=== PATIENT | female | born 1995 | race African-American/Black ===

== ENCOUNTER 2021-02-22 14:48 | Emergency (ER) | payer OTHER ==
[2021-02-22] MEDS ORDERED: Ondansetron PF 4 MG/2 ML Vial ONE (16:00)
[2021-02-22] MEDS ORDERED: Ketorolac Tromethamine 30 MG/ML VIAL ONE (16:01)
[2021-02-22] MEDS ORDERED: Acetaminophen 500 MG TAB ONE (16:01)
[2021-02-22 16:39] LABS: Bilirubin Neg (Negative); Blood, Urine Negative (Negative); Clarity Clear (Clear); Glucose, Urine (Dipstick) Normal (Negative); Ketone, Urine 5 mg/dL (Negative); Leukocyte 25 (Negative); Nitrite Negative (Negative); Protein, Urine (Dipstick) Negative (Neg-Trace); Urobilinogen Normal mg/dL (Less than 2); pH, Urine 6.5 (5.0-9.0)
[2021-02-22 16:43] LABS: #Monocytes 0.5 10x3/uL (0.0-1.1); #Neutrophils 9.1 10x3/uL (1.5-8.4); %Basophils 0.2 % (0.0-2.0); %Eosinophils 0.2 % (0.0-6.0); %Lymphocytes 7.8 % (18.0-47.0); %Monocytes 4.4 % (0.0-10.0); %Neutrophils 87.2 % (40.0-75.0); Hemoglobin 10.3 g/dL (12.0-15.5); Mean Corpuscular HGB CONC 31.2 g/dL (32.0-36.0); Mean Corpuscular Hemoglobin 21.9 pg (27.0-33.0); Mean Corpuscular Volume 70.1 fl (81.6-98.3); Mean Platelet Volume 9.7 fl (7.4-10.4); Platelet Count 291 10x3/uL (150-450); RBC Distribution Width 16.5 % (11.5-14.5); Red Blood Cell (RBC) Count 4.71 10x6/uL (3.90-5.03); White Blood Cell (WBC) Count 10.5 10x3/uL (3.5-10.5)
[2021-02-22 16:44] LABS: Pregnancy Test - Urine (BHCG) Negative (Negative); Pregu Control Background? CLEAR/WHITE (CLR/WHITE); Pregu Control Bar Appear? YES (CONTROL BAR)
[2021-02-22 16:45] LABS: ALT (SGPT) 13 U/L (8-55); AST (SGOT) 16 U/L (5-34); Albumin 4.2 g/dL (3.5-5.0); Alkaline Phosphatase 53 U/L (40-110); Anion Gap 12 mmol/L (10-20); BUN (Urea Nitrogen) 14 mg/dL (7.0-18.7); Bilirubin, Total 0.6 mg/dL (0.2-1.2); CK (CPK) 56 U/L (29-168); Calc. Creatinine Clearance 0 mL/min (70-130); Calcium 9.1 mg/dL (7.8-10.44); Carbon Dioxide 23 mmol/L (22-29); Chloride 106 mmol/L (98-107); Globulin 3.2 g/dL (2.4-3.5); Glucose 87 mg/dL (70-105); Potassium 3.1 mmol/L (3.5-5.1); Protein, Total 7.4 g/dL (6.0-8.3); Sodium 138 mmol/L (136-145)
[2021-02-22 16:46] LABS: Bacteria/HPF Rare-Few HPF (None Seen); RBC/HPF 0-3 HPF (0-3); Transitional Epithelial 0-3 HPF (None Seen); WBC/HPF 0-3 HPF (0-3)
[2021-02-22 17:31] LABS: Anisocytosis SLIGHT = 6-15 cells (100X) (0-5/hpf); Poikilocytosis MODERATE=16-30 cells (100X) (0-5/hpf)
[2021-02-22 17:32] LABS: Hypochromia SLIGHT = 6-15 cells (100X) (0-5/hpf); Microcytosis MODERATE=15-30 cells (100X) (0-5/hpf); Ovalocytes SLIGHT = 2-5 cells (100X) (0-1/hpf); Schistocytes MODERATE= 6-15 cells (100X) (0-1/hpf)
[2021-02-22 17:33] LABS: Elliptocytes SLIGHT = 2-5 cells (100X) (0-1/hpf); Large Platelets SLIGHT; Platelet Morphology Comment Appears Adequate; Tear Drops SLIGHT = 2-5 cells (100X) (0-1/hpf)
== END 2021-02-22 18:45 | disposition home or self-care (01) ==
LOC: CSHERS 14:48
DX: B34.9 Viral infection, unspecified (principal); E87.6 Hypokalemia; D72.810 Lymphocytopenia; D50.9 Iron deficiency anemia, unspecified; K21.9 Gastro-esophageal reflux disease without esophagitis; J45.909 Unspecified asthma, uncomplicated; Z79.899 Other long term (current) drug therapy
CPT/HCPCS: 71045; 80053; 81003; 81015; 81025; 82550; 85025; 87081; 87430; 87804; 96374; 96375; J1885; J2405

== ENCOUNTER 2021-03-23 15:12 | Inpatient (IN) | payer OTHER ==
[2021-03-23] MEDS ORDERED: Acetaminophen 500 MG TAB ONE (15:46)
[2021-03-23 16:06] LABS: #Neutrophils 9.3 10x3/uL (1.5-8.4); %Basophils 0.2 % (0.0-2.0); %Eosinophils 0.1 % (0.0-6.0); %Monocytes 8.5 % (0.0-10.0); Hemoglobin 9.2 g/dL (12.0-15.5); Mean Corpuscular HGB CONC 31.9 g/dL (32.0-36.0); Mean Corpuscular Hemoglobin 21.4 pg (27.0-33.0); Mean Corpuscular Volume 67.1 fl (81.6-98.3); Mean Platelet Volume 9.8 fl (7.4-10.4); Platelet Count 520 10x3/uL (150-450); RBC Distribution Width 16.6 % (11.5-14.5); Red Blood Cell (RBC) Count 4.29 10x6/uL (3.90-5.03); White Blood Cell (WBC) Count 12.2 10x3/uL (3.5-10.5)
[2021-03-23 16:10] LABS: BHCG - Serum Negative (NEGATIVE); Pregs Control Background? CLEAR/WHITE (CLR/WHITE); Pregs Control Bar Appear? YES (CONTROL BAR)
[2021-03-23 16:12] LABS: ALT (SGPT) 16 U/L (8-55); AST (SGOT) 14 U/L (5-34); Alkaline Phosphatase 54 U/L (40-110); Anion Gap 14 mmol/L (10-20); BUN (Urea Nitrogen) 8 mg/dL (7.0-18.7); Bilirubin, Total 0.4 mg/dL (0.2-1.2); Calc. Creatinine Clearance 0 mL/min (70-130); Calcium 9.1 mg/dL (7.8-10.44); Carbon Dioxide 23 mmol/L (22-29); Chloride 102 mmol/L (98-107); Globulin 4.1 g/dL (2.4-3.5); Glucose 91 mg/dL (70-105); Potassium 3.1 mmol/L (3.5-5.1); Protein, Total 8.1 g/dL (6.0-8.3); Sodium 136 mmol/L (136-145)
[2021-03-23] MEDS ORDERED: Ondansetron PF 4 MG/2 ML Vial ONE (16:41)
[2021-03-23] MEDS ORDERED: Potassium Chloride 20 MEQ TAB ONE (16:41)
[2021-03-23] MEDS ORDERED: Ketorolac Tromethamine 30 MG/ML VIAL ONE (16:58)
[2021-03-23 17:22] LABS: Anisocytosis SLIGHT = 6-15 cells (100X) (0-5/hpf); Hypochromia SLIGHT = 6-15 cells (100X) (0-5/hpf); Microcytosis MODERATE=15-30 cells (100X) (0-5/hpf); Ovalocytes SLIGHT = 2-5 cells (100X) (0-1/hpf); Poikilocytosis SLIGHT = 6-15 cells (100X) (0-5/hpf); Polychromasia SLIGHT = 2-3 cells (100X) (0-2/hpf); Reflex for Review?? YES; Schistocytes SLIGHT = 2-5 cells (100X) (0-1/hpf); Tear Drops SLIGHT = 2-5 cells (100X) (0-1/hpf)
[2021-03-23 17:23] LABS: Giant Platelets SLIGHT; Platelet Morphology Comment Appears Increased
[2021-03-23] MEDS ORDERED: Aspirin Chewable 81 MG TAB ONE (18:11)
[2021-03-23] MEDS ORDERED: Cefepime 2 GM VIAL ONE (18:12)
[2021-03-23] MEDS ORDERED: Ondansetron PF 4 MG/2 ML Vial IVP PRN (19:14)
[2021-03-23] MEDS ORDERED: Ondansetron ODT 4 MG TAB PO PRN (19:14)
[2021-03-23 19:23] LABS: Bilirubin Neg (Negative); Blood, Urine Negative (Negative); Clarity Clear (Clear); Glucose, Urine (Dipstick) Normal (Negative); Ketone, Urine Negative (Negative); Leukocyte 100 (Negative); Nitrite Negative (Negative); Protein, Urine (Dipstick) Negative (Neg-Trace); Specific Gravity, Urine 1.005 (1.002-1.036); Urobilinogen Normal mg/dL (Less than 2)
[2021-03-23 19:25] LABS: Troponin I Less than 0.010 ng/mL (< 0.028)
[2021-03-23 19:34] LABS: RBC/HPF 0-3 HPF (0-3)
[2021-03-23 19:35] LABS: Bacteria/HPF Rare-Few HPF (None Seen); Renal Epithelial 0-3 HPF (None Seen); Transitional Epithelial 0-3 HPF (None Seen)
[2021-03-23 20:13] LABS: Lactic Acid 0.6 mmol/L (0.5-2.2)
[2021-03-23 22:34] LABS: Troponin I Less than 0.010 ng/mL (< 0.028)
[2021-03-23 22:35] VITALS: BMI 26.3
[2021-03-24] MEDS: Cefepime 2 GM in Sodium Chloride 0.9% 100 ML IVPB SCH ×3 (01:19→16:32)
[2021-03-24 04:26] LABS: #Neutrophils 8.5 10x3/uL (1.5-8.4); %Basophils 0.2 % (0.0-2.0); %Eosinophils 0.3 % (0.0-6.0); %Lymphocytes 11.2 % (18.0-47.0); %Monocytes 9.2 % (0.0-10.0); %Neutrophils 78.4 % (40.0-75.0); Hemoglobin 7.9 g/dL (12.0-15.5); Mean Corpuscular HGB CONC 31.9 g/dL (32.0-36.0); Mean Corpuscular Hemoglobin 21.4 pg (27.0-33.0); Mean Corpuscular Volume 67.2 fl (81.6-98.3); Mean Platelet Volume 10.3 fl (7.4-10.4); Platelet Count 443 10x3/uL (150-450); RBC Distribution Width 17.2 % (11.5-14.5); Red Blood Cell (RBC) Count 3.69 10x6/uL (3.90-5.03); White Blood Cell (WBC) Count 10.8 10x3/uL (3.5-10.5)
[2021-03-24 04:35] LABS: Anion Gap 14 mmol/L (10-20); BUN (Urea Nitrogen) 7 mg/dL (7.0-18.7); Calc. Creatinine Clearance 107 mL/min (70-130); Calcium 8.3 mg/dL (7.8-10.44); Carbon Dioxide 18 mmol/L (22-29); Chloride 110 mmol/L (98-107); Glucose 91 mg/dL (70-105); Magnesium 1.7 mg/dL (1.6-2.6); Potassium 3.8 mmol/L (3.5-5.1); Sodium 138 mmol/L (136-145)
[2021-03-24] MEDS: Acetaminophen 325 MG TAB PO PRN (04:58)
[2021-03-24] MEDS: Vancomycin HCl 1 GM in Sodium Chloride 0.9% 250 ML 250 ML IVPB SCH ×2 (05:49→17:53)
[2021-03-24] MEDS: Enoxaparin Sodium 40 MG/0.4 ML SYRINGE SC SCH (08:20)
[2021-03-24] MEDS ORDERED: Ferrous Sulfate 325 MG TAB PO SCH (09:45)
[2021-03-24 14:18] LABS: SARS-CoV-2 PCR by NAA Not Detected (NotDetected)
[2021-03-24] MEDS: Ferrous Sulfate 325 MG TAB PO SCH ×2 (14:57→21:35)
[2021-03-24] MEDS: HYDROcodone/Acetaminophen 5/325 mg Tablet PO PRN ×2 (15:03→19:35)
[2021-03-24] MEDS: Sodium Chloride 0.9% 1,000 ML IV SCH (16:32)
[2021-03-24] MEDS: Morphine 4 MG/ML VIAL SLOW IVP PRN ×2 (16:32→21:35)
[2021-03-25] MEDS: Cefepime 2 GM in Sodium Chloride 0.9% 100 ML IVPB SCH ×3 (02:18→18:16)
[2021-03-25] MEDS: Morphine 4 MG/ML VIAL SLOW IVP PRN ×3 (02:41→15:50)
[2021-03-25] MEDS: Sodium Chloride 0.9% 1,000 ML IV SCH ×2 (04:30→12:21)
[2021-03-25 05:57] LABS: Hemoglobin 7.7 g/dL (12.0-15.5); Mean Corpuscular Hemoglobin 21.6 pg (27.0-33.0); Mean Corpuscular Volume 67.7 fl (81.6-98.3); Mean Platelet Volume 9.9 fl (7.4-10.4); Platelet Count 385 10x3/uL (150-450); RBC Distribution Width 17.1 % (11.5-14.5); Red Blood Cell (RBC) Count 3.56 10x6/uL (3.90-5.03); White Blood Cell (WBC) Count 6.8 10x3/uL (3.5-10.5)
[2021-03-25 06:05] LABS: Iron 9 ug/dL (50-170); Iron Binding Capacity, Total 236 mcg/dL (265-497)
[2021-03-25] MEDS: Vancomycin HCl 1 GM in Sodium Chloride 0.9% 250 ML 250 ML IVPB SCH (06:06)
[2021-03-25 06:11] LABS: Vancomycin, Trough 9.1 ug/mL
[2021-03-25 06:13] LABS: Anion Gap 12 mmol/L (10-20); BUN (Urea Nitrogen) Less than 4 mg/dL (7.0-18.7); Calc. Creatinine Clearance 105 mL/min (70-130); Calcium 8.7 mg/dL (7.8-10.44); Carbon Dioxide 21 mmol/L (22-29); Chloride 111 mmol/L (98-107); Glucose 97 mg/dL (70-105); Iron 8 ug/dL (50-170); Iron Binding Capacity, Total 245 mcg/dL (265-497); Magnesium 1.8 mg/dL (1.6-2.6); Potassium 3.4 mmol/L (3.5-5.1); Sodium 141 mmol/L (136-145)
[2021-03-25 06:14] LABS: #Eosinphils 0.1 10x3/uL (0.0-0.5); #Monocytes 0.6 10x3/uL (0.0-1.1); #Neutrophils 4.2 10x3/uL (1.5-8.4); %Basophils 0.3 % (0.0-2.0); %Eosinophils 1.2 % (0.0-6.0); %Lymphocytes 27.5 % (18.0-47.0); %Monocytes 8.5 % (0.0-10.0); %Neutrophils 62.2 % (40.0-75.0)
[2021-03-25 06:18] LABS: Platelet Morphology Comment Appears Adequate
[2021-03-25 06:19] LABS: Anisocytosis SLIGHT = 6-15 cells (100X) (0-5/hpf); Elliptocytes SLIGHT = 2-5 cells (100X) (0-1/hpf); Hypochromia MODERATE=16-30 cells (100X) (0-5/hpf); Microcytosis MODERATE=15-30 cells (100X) (0-5/hpf)
[2021-03-25 06:27] LABS: Ferritin 178.57 ng/mL (10-291)
[2021-03-25] MEDS ORDERED: Vancomycin HCl 500 MG in Sodium Chloride 0.9% 100 ML IVPB SCH (08:00)
[2021-03-25] MEDS: Enoxaparin Sodium 40 MG/0.4 ML SYRINGE SC SCH (08:58)
[2021-03-25] MEDS: Ferrous Sulfate 325 MG TAB PO SCH ×4 (08:58→20:15)
[2021-03-25] MEDS: HYDROcodone/Acetaminophen 5/325 mg Tablet PO PRN ×2 (12:09→23:22)
[2021-03-25] MEDS ORDERED: VANCOMYCIN 1.5 GM in Sodium Chloride 0.9% 250 ML 300 ML IVPB SCH (18:00)
[2021-03-26] MEDS ORDERED: HYDROcodone/Acetaminophen 10/325 mg Tablet PO SCH (00:30)
[2021-03-26] MEDS: Cefepime 2 GM in Sodium Chloride 0.9% 100 ML IVPB SCH ×2 (01:50→11:19)
[2021-03-26 05:19] LABS: ALT (SGPT) 16 U/L (8-55); AST (SGOT) 18 U/L (5-34); Albumin 3.2 g/dL (3.5-5.0); Alkaline Phosphatase 46 U/L (40-110); Anion Gap 13 mmol/L (10-20); BUN (Urea Nitrogen) 4 mg/dL (7.0-18.7); Bilirubin, Total 0.1 mg/dL (0.2-1.2); Calc. Creatinine Clearance 113 mL/min (70-130); Calcium 8.7 mg/dL (7.8-10.44); Carbon Dioxide 24 mmol/L (22-29); Chloride 108 mmol/L (98-107); Globulin 3.5 g/dL (2.4-3.5); Glucose 92 mg/dL (70-105); Protein, Total 6.7 g/dL (6.0-8.3); Sodium 141 mmol/L (136-145)
[2021-03-26 05:32] LABS: #Eosinphils 0.1 10x3/uL (0.0-0.5); #Monocytes 0.4 10x3/uL (0.0-1.1); #Neutrophils 2.8 10x3/uL (1.5-8.4); %Basophils 0.2 % (0.0-2.0); %Eosinophils 1.7 % (0.0-6.0); %Lymphocytes 37.4 % (18.0-47.0); %Monocytes 7.6 % (0.0-10.0); %Neutrophils 52.9 % (40.0-75.0); Hemoglobin 7.5 g/dL (12.0-15.5); Mean Corpuscular HGB CONC 31.1 g/dL (32.0-36.0); Mean Corpuscular Hemoglobin 21.5 pg (27.0-33.0); Mean Corpuscular Volume 69.1 fl (81.6-98.3); Mean Platelet Volume 9.2 fl (7.4-10.4); Platelet Count 374 10x3/uL (150-450); Red Blood Cell (RBC) Count 3.49 10x6/uL (3.90-5.03); White Blood Cell (WBC) Count 5.2 10x3/uL (3.5-10.5)
[2021-03-26 05:34] LABS: Platelet Morphology Comment Appears Adequate
[2021-03-26 05:35] LABS: Anisocytosis MODERATE=16-30 cells (100X) (0-5/hpf); Elliptocytes SLIGHT = 2-5 cells (100X) (0-1/hpf); Hypochromia MODERATE=16-30 cells (100X) (0-5/hpf); Macrocytosis MODERATE=16-30 cells (100X) (0-5/hpf); Microcytosis SLIGHT = 6-15 cells (100X) (0-5/hpf); Polychromasia SLIGHT = 2-3 cells (100X) (0-2/hpf)
[2021-03-26] MEDS: Ferrous Sulfate 325 MG TAB PO SCH ×2 (08:52→14:28)
[2021-03-26] MEDS: Enoxaparin Sodium 40 MG/0.4 ML SYRINGE SC SCH (08:57)
[2021-03-26] MEDS: HYDROcodone/Acetaminophen 5/325 mg Tablet PO PRN (08:57)
[2021-03-26] MEDS ORDERED: Folic Acid 1 MG TAB PO SCH (09:00)
[2021-03-26] MEDS ORDERED: SUMAtriptan Succinate 25 MG TAB PO SCH (12:45)
[2021-03-26 14:26] VITALS: BP 100/65; TEMP 98
[2021-03-26] MEDS: Acetaminophen 325 MG TAB PO PRN (14:28)
[2021-03-26] MEDS ORDERED: Cefepime 2 GM in Sodium Chloride 0.9% 100 ML IVPB SCH (15:00)
[2021-03-26 17:11] LABS: Hemoglobin 9.3 g/dL (12.0-15.5); Vancomycin, Trough 1.5 ug/mL
[2021-03-27] MEDS ORDERED: Prenatal Vitamin 1 TAB PO SCH (09:00)
== END 2021-03-26 18:30 | disposition home or self-care (01) | DRG 872 ==
LOC: CSHERS 15:12 → CSHTELE 20:06
PROVIDERS: ADMIT Internal Medicine; ATTEND Internal Medicine
PROC: 30233N1 Transfusion of Nonautologous Red Blood Cells into Peripheral Vein, Percutaneous Approach (ICD-10-PCS; principal; 2021-03-26)
DX: A41.51 Sepsis due to Escherichia coli [E. coli] (principal); E87.2 Acidosis; N39.0 Urinary tract infection, site not specified; R65.20 Severe sepsis without septic shock; Z20.822 Contact with and (suspected) exposure to COVID-19; Z86.16 Personal history of COVID-19; E87.6 Hypokalemia; D56.1 Beta thalassemia; K21.9 Gastro-esophageal reflux disease without esophagitis; J45.909 Unspecified asthma, uncomplicated; Z90.710 Acquired absence of both cervix and uterus; R51.9 Headache, unspecified
CPT/HCPCS: 36415; 36430; 71045; 71275; 80048; 80053; 80202; 81003; 81015; 82607; 82728; 82746; 83010; 83540; 83550; 83605; 83615; 83735; 84145; 84484; 84703; 85025; 85046; 85060; 85652; 86140; 86850; 86900; 86901; 87040; 87076; 87077; 87086; 87149; 87186; 87635; 93005; 93306; 96365; 96367; 96375; J0692; J1650; J1885; J2270; J2405; J3370; J3490; J7050; P9016; U0003; U0005

== ENCOUNTER 2021-07-16 01:06 | Emergency (ER) | payer OTHER ==
[2021-07-16 01:55] LABS: Bilirubin Neg (Negative); Blood, Urine Negative (Negative); Clarity Slightly Cloudy (Clear); Glucose, Urine (Dipstick) Normal (Negative); Ketone, Urine Negative (Negative); Leukocyte 25 (Negative); Nitrite Negative (Negative); Protein, Urine (Dipstick) Negative (Neg-Trace); Specific Gravity, Urine 1.015 (1.002-1.036); Urobilinogen Normal mg/dL (Less than 2)
[2021-07-16 02:04] LABS: RBC/HPF 0-3 HPF (0-3)
[2021-07-16 02:05] LABS: Bacteria/HPF 2+ HPF (None Seen)
== END 2021-07-16 02:50 | disposition home or self-care (01) ==
LOC: CSHERS 01:06
DX: R10.32 Left lower quadrant pain (principal); K21.9 Gastro-esophageal reflux disease without esophagitis; J45.909 Unspecified asthma, uncomplicated; D50.9 Iron deficiency anemia, unspecified
CPT/HCPCS: 81003; 81015; 84702; 99284

== ENCOUNTER 2022-01-23 20:56 | Emergency (ER) | payer OTHER ==
[2022-01-23] MEDS ORDERED: Ibuprofen 200 MG TAB ONE (22:18)
[2022-01-23 22:32] LABS: Bilirubin Neg (Negative); Blood, Urine 150 (Negative); Clarity Bloody (Clear); Glucose, Urine (Dipstick) Normal (Negative); Ketone, Urine Negative (Negative); Leukocyte 500 (Negative); Nitrite Negative (Negative); Protein, Urine (Dipstick) 500 mg/dl (Neg-Trace); Specific Gravity, Urine 1.025 (1.002-1.036); Urobilinogen Normal mg/dL (Less than 2)
[2022-01-23 22:36] LABS: #Eosinphils 0.6 10x3/uL (0.0-0.5); #Monocytes 0.4 10x3/uL (0.0-1.1); %Basophils 0.3 % (0.0-2.0); %Eosinophils 8.3 % (0.0-6.0); %Lymphocytes 38.7 % (18.0-47.0); %Monocytes 6.7 % (0.0-10.0); %Neutrophils 45.7 % (40.0-75.0); Hemoglobin 9.4 g/dL (12.0-15.5); Mean Corpuscular HGB CONC 31.2 g/dL (32.0-36.0); Mean Corpuscular Hemoglobin 20.9 pg (27.0-33.0); Mean Corpuscular Volume 66.9 fl (81.6-98.3); Platelet Count 476 10x3/uL (150-450); RBC Distribution Width 18.4 % (11.5-14.5); White Blood Cell (WBC) Count 6.6 10x3/uL (3.5-10.5)
[2022-01-23 22:37] LABS: Pregnancy Test - Urine (BHCG) Negative (Negative); Pregu Control Background? CLEAR/WHITE (CLR/WHITE); Pregu Control Bar Appear? YES (CONTROL BAR); Specific Gravity 1.025 (1.002-1.036)
[2022-01-23 22:43] LABS: RBC/HPF Greater than 50 HPF (0-3); WBC/HPF Greater Than 50 HPF (0-3)
[2022-01-23 22:44] LABS: Bacteria/HPF 2+ HPF (None Seen)
[2022-01-24 00:03] LABS: Platelet Morphology Comment Appears Increased
[2022-01-24 00:04] LABS: Anisocytosis SLIGHT = 6-15 cells (100X) (0-5/hpf); Elliptocytes SLIGHT = 2-5 cells (100X) (0-1/hpf); Hypochromia SLIGHT = 6-15 cells (100X) (0-5/hpf); Macrocytosis SLIGHT = 6-15 cells (100X) (0-5/hpf); Microcytosis SLIGHT = 6-15 cells (100X) (0-5/hpf); Poikilocytosis SLIGHT = 6-15 cells (100X) (0-5/hpf); Schistocytes SLIGHT = 2-5 cells (100X) (0-1/hpf); Target Cells SLIGHT = 2-5 cells (100X) (0-1/hpf)
== END 2022-01-23 23:51 | disposition home or self-care (01) ==
LOC: CSHERS 20:56
DX: S60.221A Contusion of right hand, initial encounter (principal); N30.00 Acute cystitis without hematuria; W19.XXXA Unspecified fall, initial encounter
CPT/HCPCS: 81003; 81015; 81025; 85025; 87077; 87086

== ENCOUNTER 2022-02-25 04:49 | Inpatient (IN) | payer OTHER ==
[2022-02-25] MEDS ORDERED: Ketorolac Tromethamine 30 MG/ML VIAL ONE (05:09)
[2022-02-25] MEDS ORDERED: Ondansetron PF 4 MG/2 ML Vial ONE ×2 (05:09→07:46)
[2022-02-25 05:23] LABS: BHCG - Serum Negative (NEGATIVE); Pregs Control Background? CLEAR/WHITE (CLR/WHITE); Pregs Control Bar Appear? YES (CONTROL BAR)
[2022-02-25 05:29] LABS: #Monocytes 0.8 10x3/uL (0.0-1.1); #Neutrophils 6.9 10x3/uL (1.5-8.4); %Basophils 0.1 % (0.0-2.0); %Eosinophils 0.1 % (0.0-6.0); %Lymphocytes 29.4 % (18.0-47.0); %Monocytes 6.8 % (0.0-10.0); %Neutrophils 62.2 % (40.0-75.0); Hemoglobin 8.4 g/dL (12.0-15.5); Mean Corpuscular HGB CONC 31.8 g/dL (32.0-36.0); Mean Corpuscular Hemoglobin 21.1 pg (27.0-33.0); Mean Corpuscular Volume 66.2 fl (81.6-98.3); Mean Platelet Volume 9.1 fl (7.4-10.4); Platelet Count 569 10x3/uL (150-450); RBC Distribution Width 20.6 % (11.5-14.5); Red Blood Cell (RBC) Count 3.99 10x6/uL (3.90-5.03); White Blood Cell (WBC) Count 11.2 10x3/uL (3.5-10.5)
[2022-02-25 05:31] LABS: ALT (SGPT) 63 U/L (8-55); AST (SGOT) 41 U/L (5-34); Albumin 3.6 g/dL (3.5-5.0); Alkaline Phosphatase 45 U/L (40-110); Anion Gap 15 mmol/L (10-20); BUN (Urea Nitrogen) 15 mg/dL (7.0-18.7); Bilirubin, Total 0.2 mg/dL (0.2-1.2); Calc. Creatinine Clearance 0 mL/min (70-130); Calcium 8.9 mg/dL (7.8-10.44); Carbon Dioxide 24 mmol/L (22-29); Chloride 102 mmol/L (98-107); Globulin 3.1 g/dL (2.4-3.5); Glucose 85 mg/dL (70-105); Lipase 288 U/L (8-78); Potassium 3.3 mmol/L (3.5-5.1); Protein, Total 6.7 g/dL (6.0-8.3); Sodium 138 mmol/L (136-145)
[2022-02-25] MEDS ORDERED: Morphine 4 MG/ML VIAL ONE ×2 (05:33→07:45)
[2022-02-25] MEDS ORDERED: Promethazine HCl 25 MG/ML VIAL ONE (09:37)
[2022-02-25] MEDS ORDERED: Acetaminophen 325 MG TAB PO PRN (11:45)
[2022-02-25] MEDS ORDERED: 1/2 NS w/KCL 20 mEq 1,000 ML IV SCH (12:00)
[2022-02-25] MEDS ORDERED: Electrolyte Replacement Protocol FS PRN (12:00)
[2022-02-25 12:37] VITALS: BMI 16.2
[2022-02-25] MEDS: Promethazine HCl 25 MG in Sodium Chloride 0.9% 50 ML IVPB PRN ×2 (12:50→20:53)
[2022-02-25] MEDS ORDERED: predniSONE 20 MG TAB PO SCH (13:00)
[2022-02-25] MEDS: Morphine 4 MG/ML VIAL SLOW IVP PRN ×2 (13:15→20:43)
[2022-02-25] MEDS: Famotidine/PF 20 mg/2ml Vial SLOW IVP SCH (20:43)
[2022-02-25] MEDS ORDERED: Pantoprazole 40 MG VIAL IVP SCH (21:00)
[2022-02-25] MEDS: HYDROcodone/Acetaminophen 5/325 mg Tablet PO PRN (22:40)
[2022-02-26] MEDS: Sodium Chloride 0.9% 1,000 ML IV SCH ×2 (02:32→05:47)
[2022-02-26 05:01] LABS: #Monocytes 0.2 10x3/uL (0.0-1.1); %Basophils 0.1 % (0.0-2.0); %Lymphocytes 25.1 % (18.0-47.0); %Monocytes 2.4 % (0.0-10.0); %Neutrophils 71.7 % (40.0-75.0); Hemoglobin 7.3 g/dL (12.0-15.5); Mean Corpuscular Hemoglobin 21.7 pg (27.0-33.0); Mean Corpuscular Volume 67.7 fl (81.6-98.3); Mean Platelet Volume 8.3 fl (7.4-10.4); Platelet Count 403 10x3/uL (150-450); Red Blood Cell (RBC) Count 3.37 10x6/uL (3.90-5.03); White Blood Cell (WBC) Count 8.4 10x3/uL (3.5-10.5)
[2022-02-26 05:20] LABS: ALT (SGPT) 42 U/L (8-55); AST (SGOT) 24 U/L (5-34); Alkaline Phosphatase 38 U/L (40-110); Anion Gap 12 mmol/L (10-20); BUN (Urea Nitrogen) 8 mg/dL (7.0-18.7); Bilirubin, Total 0.3 mg/dL (0.2-1.2); Calc. Creatinine Clearance 75 mL/min (70-130); Calcium 8.6 mg/dL (7.8-10.44); Carbon Dioxide 25 mmol/L (22-29); Chloride 106 mmol/L (98-107); Globulin 2.7 g/dL (2.4-3.5); Glucose 93 mg/dL (70-105); Lipase 56 U/L (8-78); Magnesium 1.9 mg/dL (1.6-2.6); Phosphorus 4.8 mg/dL (2.3-4.7); Potassium 4.3 mmol/L (3.5-5.1); Protein, Total 5.7 g/dL (6.0-8.3); Sodium 139 mmol/L (136-145)
[2022-02-26] MEDS: HYDROcodone/Acetaminophen 5/325 mg Tablet PO PRN ×3 (05:40→23:48)
[2022-02-26] MEDS: Promethazine HCl 25 MG in Sodium Chloride 0.9% 50 ML IVPB PRN ×4 (05:44→23:46)
[2022-02-26] MEDS ORDERED: Magnesium 2 GM/50 ML(in water) 2 GM in Premix Bag 1 BAG IVPB SCH (05:45)
[2022-02-26 06:39] LABS: Anisocytosis SLIGHT = 6-15 cells (100X) (0-5/hpf); Microcytosis MODERATE=15-30 cells (100X) (0-5/hpf); Ovalocytes SLIGHT = 2-5 cells (100X) (0-1/hpf); Platelet Morphology Comment Appears Adequate; Schistocytes SLIGHT = 2-5 cells (100X) (0-1/hpf)
[2022-02-26] MEDS: MESALAMINE 1.2 GM PO SCH (08:19)
[2022-02-26] MEDS: predniSONE 20 MG TAB PO SCH (08:19)
[2022-02-26] MEDS: Famotidine/PF 20 mg/2ml Vial SLOW IVP SCH ×2 (08:19→19:42)
[2022-02-26] MEDS: Morphine 4 MG/ML VIAL SLOW IVP PRN ×3 (08:29→21:52)
[2022-02-26 21:23] LABS: SARS-CoV-2 PCR by NAA Not Detected (NotDetected)
[2022-02-27] MEDS: Sodium Chloride 0.9% 1,000 ML IV SCH ×3 (00:31→18:57)
[2022-02-27] MEDS: Morphine 4 MG/ML VIAL SLOW IVP PRN (03:54)
[2022-02-27 04:59] LABS: Hemoglobin 8.8 g/dL (12.0-15.5); Mean Corpuscular HGB CONC 31.8 g/dL (32.0-36.0); Mean Corpuscular Hemoglobin 21.6 pg (27.0-33.0); Mean Corpuscular Volume 67.9 fl (81.6-98.3); Mean Platelet Volume 9.8 fl (7.4-10.4); Platelet Count 570 10x3/uL (150-450); RBC Distribution Width 20.9 % (11.5-14.5); Red Blood Cell (RBC) Count 4.08 10x6/uL (3.90-5.03); White Blood Cell (WBC) Count 8.8 10x3/uL (3.5-10.5)
[2022-02-27 05:19] LABS: Anion Gap 14 mmol/L (10-20); BUN (Urea Nitrogen) 10 mg/dL (7.0-18.7); Calc. Creatinine Clearance 68 mL/min (70-130); Calcium 8.4 mg/dL (7.8-10.44); Carbon Dioxide 26 mmol/L (22-29); Chloride 107 mmol/L (98-107); Glucose 93 mg/dL (70-105); Potassium 3.4 mmol/L (3.5-5.1); Sodium 144 mmol/L (136-145)
[2022-02-27] MEDS ORDERED: Potassium Chloride 20 MEQ TAB PO SCH (05:45)
[2022-02-27] MEDS: Promethazine HCl 25 MG in Sodium Chloride 0.9% 50 ML IVPB PRN (06:28)
[2022-02-27] MEDS: HYDROcodone/Acetaminophen 5/325 mg Tablet PO PRN ×3 (06:29→22:05)
[2022-02-27] MEDS: predniSONE 20 MG TAB PO SCH (09:04)
[2022-02-27] MEDS: Ferrous Sulfate 325 MG TAB PO SCH (09:05)
[2022-02-27] MEDS: Famotidine/PF 20 mg/2ml Vial SLOW IVP SCH ×2 (09:05→22:04)
[2022-02-27] MEDS: MESALAMINE 1.2 GM PO SCH (09:11)
[2022-02-27] MEDS: Promethazine 25 MG TAB PO PRN ×2 (13:22→18:57)
[2022-02-27] MEDS ORDERED: Ondansetron PF 4 MG/2 ML Vial IVP SCH (17:00)
[2022-02-28] MEDS ORDERED: HYDROcodone/Acetaminophen 5/325 mg Tablet PO SCH (01:45)
[2022-02-28] MEDS: HYDROcodone/Acetaminophen 5/325 mg Tablet PO PRN ×5 (01:52→20:39)
[2022-02-28] MEDS ORDERED: Simethicone Chewable 80 MG TAB PO SCH (04:45)
[2022-02-28] MEDS: Sodium Chloride 0.9% 1,000 ML IV SCH ×3 (04:57→20:38)
[2022-02-28] MEDS ORDERED: Metoclopramide HCl 10 MG/2 ML VIAL IVP SCH (05:00)
[2022-02-28 05:26] LABS: Anion Gap 14 mmol/L (10-20); BUN (Urea Nitrogen) 10 mg/dL (7.0-18.7); Calc. Creatinine Clearance 68 mL/min (70-130); Calcium 8.2 mg/dL (7.8-10.44); Carbon Dioxide 23 mmol/L (22-29); Chloride 107 mmol/L (98-107); Glucose 95 mg/dL (70-105); Sodium 141 mmol/L (136-145)
[2022-02-28] MEDS ORDERED: Potassium Chloride 20 MEQ TAB PO SCH (05:45)
[2022-02-28] MEDS: Famotidine/PF 20 mg/2ml Vial SLOW IVP SCH ×2 (09:03→20:40)
[2022-02-28] MEDS: Ferrous Sulfate 325 MG TAB PO SCH (09:03)
[2022-02-28] MEDS: predniSONE 20 MG TAB PO SCH (09:04)
[2022-02-28] MEDS: MESALAMINE 1.2 GM PO SCH (09:05)
[2022-02-28] MEDS: Promethazine 25 MG TAB PO PRN (13:10)
[2022-03-01 00:17] VITALS: BP 112/72; TEMP 98.7
[2022-03-05] MEDS ORDERED: predniSONE 20 MG TAB PO SCH (09:00)
[2022-03-12] MEDS ORDERED: predniSONE 10 MG TAB PO SCH (09:00)
== END 2022-02-28 22:21 | disposition left against medical advice (07) | DRG 387 ==
LOC: CSHERS 04:49 → CSHERHOLD 10:29 → INTOOBSV 10:29 → CSHTELE 11:47 → OBSVTOIN 02-26 17:20
PROVIDERS: ADMIT Family Medicine; ATTEND Internal Medicine
DX: K51.90 Ulcerative colitis, unspecified, without complications (principal); E87.6 Hypokalemia; R74.8 Abnormal levels of other serum enzymes; Z20.822 Contact with and (suspected) exposure to COVID-19; D50.9 Iron deficiency anemia, unspecified; Z88.2 Allergy status to sulfonamides; Z88.8 Allergy status to other drugs, medicaments and biological substances; Z79.899 Other long term (current) drug therapy
CPT/HCPCS: 36415; 74018; 74177; 80048; 80053; 82150; 83690; 83735; 84100; 84703; 85025; 85027; 94760; 96374; 96375; 96376; G0378; J1885; J2270; J2405; J2550; J2765; J3475; J3480; J7050; J7512; Q0169; S0028; U0003; U0005

== ENCOUNTER 2022-03-22 02:10 | Inpatient (IN) | payer OTHER ==
[2022-03-22] MEDS ORDERED: Glycopyrrolate 0.4 MG/ 2 ML VIAL SLOW IVP SCH (03:15)
[2022-03-22] MEDS ORDERED: Morphine 4 MG/ML VIAL ONE ×3 (03:15→08:46)
[2022-03-22] MEDS ORDERED: Ondansetron PF 4 MG/2 ML Vial ONE (03:15)
[2022-03-22 03:49] LABS: #Monocytes 0.6 10x3/uL (0.0-1.1); #Neutrophils 9.2 10x3/uL (1.5-8.4); %Basophils 0.1 % (0.0-2.0); %Lymphocytes 22.9 % (18.0-47.0); %Monocytes 4.3 % (0.0-10.0); %Neutrophils 70.3 % (40.0-75.0); Hemoglobin 8.9 g/dL (12.0-15.5); Mean Corpuscular Hemoglobin 21.6 pg (27.0-33.0); Mean Corpuscular Volume 69.7 fl (81.6-98.3); Mean Platelet Volume 9.9 fl (7.4-10.4); Platelet Count 483 10x3/uL (150-450); RBC Distribution Width 19.8 % (11.5-14.5); Red Blood Cell (RBC) Count 4.12 10x6/uL (3.90-5.03); White Blood Cell (WBC) Count 13.1 10x3/uL (3.5-10.5)
[2022-03-22 03:56] LABS: BHCG - Serum Negative (NEGATIVE); Pregs Control Background? CLEAR/WHITE (CLR/WHITE); Pregs Control Bar Appear? YES (CONTROL BAR)
[2022-03-22 04:03] LABS: ALT (SGPT) 27 U/L (8-55); AST (SGOT) 20 U/L (5-34); Alkaline Phosphatase 36 U/L (40-110); Anion Gap 14 mmol/L (10-20); BUN (Urea Nitrogen) 17 mg/dL (7.0-18.7); Bilirubin, Total 0.1 mg/dL (0.2-1.2); Calc. Creatinine Clearance 0 mL/min (70-130); Calcium 8.8 mg/dL (7.8-10.44); Carbon Dioxide 22 mmol/L (22-29); Chloride 107 mmol/L (98-107); Glucose 94 mg/dL (70-105); Lipase 104 U/L (8-78); Sodium 139 mmol/L (136-145)
[2022-03-22 04:11] LABS: Anisocytosis SLIGHT = 6-15 cells (100X) (0-5/hpf); Hypochromia SLIGHT = 6-15 cells (100X) (0-5/hpf); Macrocytosis SLIGHT = 6-15 cells (100X) (0-5/hpf); Microcytosis SLIGHT = 6-15 cells (100X) (0-5/hpf)
[2022-03-22 04:12] LABS: Elliptocytes SLIGHT = 2-5 cells (100X) (0-1/hpf); Schistocytes SLIGHT = 2-5 cells (100X) (0-1/hpf); Target Cells SLIGHT = 2-5 cells (100X) (0-1/hpf)
[2022-03-22 04:21] LABS: Bilirubin Neg (Negative); Blood, Urine Negative (Negative); Clarity Clear (Clear); Glucose, Urine (Dipstick) Normal (Negative); Ketone, Urine Negative (Negative); Leukocyte Negative (Negative); Nitrite Negative (Negative); Protein, Urine (Dipstick) Negative (Neg-Trace); Urobilinogen Normal mg/dL (Less than 2)
[2022-03-22 06:45] LABS: #Monocytes 0.7 10x3/uL (0.0-1.1); #Neutrophils 8.8 10x3/uL (1.5-8.4); %Basophils 0.1 % (0.0-2.0); %Eosinophils 0.1 % (0.0-6.0); %Lymphocytes 27.3 % (18.0-47.0); %Monocytes 4.9 % (0.0-10.0); %Neutrophils 65.7 % (40.0-75.0); Mean Corpuscular HGB CONC 32.1 g/dL (32.0-36.0); Mean Corpuscular Volume 68.3 fl (81.6-98.3); Mean Platelet Volume 9.4 fl (7.4-10.4); Platelet Count 400 10x3/uL (150-450); RBC Distribution Width 19.8 % (11.5-14.5); White Blood Cell (WBC) Count 13.4 10x3/uL (3.5-10.5)
[2022-03-22 07:09] LABS: Platelet Morphology Comment Appears Adequate
[2022-03-22 07:11] LABS: Anisocytosis SLIGHT = 6-15 cells (100X) (0-5/hpf); Hypochromia SLIGHT = 6-15 cells (100X) (0-5/hpf); Macrocytosis SLIGHT = 6-15 cells (100X) (0-5/hpf); Microcytosis SLIGHT = 6-15 cells (100X) (0-5/hpf); Target Cells SLIGHT = 2-5 cells (100X) (0-1/hpf)
[2022-03-22 07:12] LABS: Elliptocytes SLIGHT = 2-5 cells (100X) (0-1/hpf); Schistocytes SLIGHT = 2-5 cells (100X) (0-1/hpf); Tear Drops SLIGHT = 2-5 cells (100X) (0-1/hpf)
[2022-03-22] MEDS ORDERED: Acetaminophen 325 MG TAB PO PRN (08:00)
[2022-03-22] MEDS ORDERED: Promethazine HCl 25 MG/ML VIAL ONE (08:59)
[2022-03-22 11:09] VITALS: BMI 39.2
[2022-03-22] MEDS: Lactated Ringer's 1,000 ML IV SCH ×2 (12:10→18:40)
[2022-03-22] MEDS: methylPREDNISolone Sod Succ 40 MG VIAL IVP SCH ×3 (12:10→23:46)
[2022-03-22] MEDS: Famotidine/PF 20 mg/2ml Vial SLOW IVP SCH ×2 (12:11→22:20)
[2022-03-22] MEDS: HYDROcodone/Acetaminophen 5/325 mg Tablet PO PRN ×2 (12:12→17:20)
[2022-03-22] MEDS: Ondansetron PF 4 MG/2 ML Vial IVP PRN (12:13)
[2022-03-22] MEDS: Morphine 2 MG/ML VIAL SLOW IVP PRN ×2 (14:36→22:20)
[2022-03-22] MEDS: Dicyclomine 20 MG TAB PO SCH ×4 (14:36→22:33)
[2022-03-22] MEDS: Promethazine 25 MG TAB PO PRN ×2 (15:39→22:29)
[2022-03-22] MEDS ORDERED: Promethazine HCl 12.5 MG, Admixture Fee 1 EACH in Sodium Chloride 0.9% 50 ML IVPB SCH (23:00)
[2022-03-23 00:25] LABS: SARS-CoV-2 PCR by NAA Not Detected (NotDetected)
[2022-03-23 03:38] LABS: #Monocytes 0.1 10x3/uL (0.0-1.1); #Neutrophils 12.4 10x3/uL (1.5-8.4); %Basophils 0.1 % (0.0-2.0); %Lymphocytes 9.1 % (18.0-47.0); %Monocytes 0.5 % (0.0-10.0); %Neutrophils 88.6 % (40.0-75.0); Hemoglobin 8.7 g/dL (12.0-15.5); Mean Corpuscular HGB CONC 31.5 g/dL (32.0-36.0); Mean Corpuscular Hemoglobin 22.1 pg (27.0-33.0); Mean Corpuscular Volume 70.2 fl (81.6-98.3); Mean Platelet Volume 9.5 fl (7.4-10.4); Platelet Count 419 10x3/uL (150-450); RBC Distribution Width 19.9 % (11.5-14.5); Red Blood Cell (RBC) Count 3.93 10x6/uL (3.90-5.03)
[2022-03-23 04:03] LABS: Anion Gap 14 mmol/L (10-20); BUN (Urea Nitrogen) 12 mg/dL (7.0-18.7); Calc. Creatinine Clearance 163 mL/min (70-130); Calcium 9.1 mg/dL (7.8-10.44); Carbon Dioxide 24 mmol/L (22-29); Chloride 106 mmol/L (98-107); Glucose 154 mg/dL (70-105); Lipase 69 U/L (8-78); Potassium 3.9 mmol/L (3.5-5.1); Sodium 140 mmol/L (136-145)
[2022-03-23] MEDS: Lactated Ringer's 1,000 ML IV SCH (04:55)
[2022-03-23] MEDS: methylPREDNISolone Sod Succ 40 MG VIAL IVP SCH ×4 (06:20→23:52)
[2022-03-23] MEDS: Dextrose 5 % And 0.9 % NaCl 1,000 ML IV SCH ×2 (08:57→21:45)
[2022-03-23] MEDS: Promethazine HCl 12.5 MG in Sodium Chloride 0.9% 50 ML IVPB PRN ×2 (08:58→17:14)
[2022-03-23] MEDS: Mesalamine DR 400 mg Capsule PO SCH (09:02)
[2022-03-23] MEDS: Fluconazole 100 MG TAB PO SCH (09:03)
[2022-03-23] MEDS: Dicyclomine 20 MG TAB PO SCH ×4 (09:03→20:37)
[2022-03-23] MEDS: Pantoprazole 40 MG VIAL IVP SCH (09:09)
[2022-03-23] MEDS: HYDROmorphone 0.5 MG/0.5 ML SYRINGE SLOW IVP PRN ×3 (09:09→20:37)
[2022-03-23] MEDS: HYDROcodone/Acetaminophen 5/325 mg Tablet PO PRN (11:48)
[2022-03-24] MEDS: Dextrose 5 % And 0.9 % NaCl 1,000 ML IV SCH ×2 (00:32→14:49)
[2022-03-24] MEDS: Promethazine HCl 12.5 MG in Sodium Chloride 0.9% 50 ML IVPB PRN ×4 (00:55→21:09)
[2022-03-24] MEDS: HYDROmorphone 0.5 MG/0.5 ML SYRINGE SLOW IVP PRN ×4 (03:35→20:30)
[2022-03-24 05:04] LABS: Hemoglobin 8.3 g/dL (12.0-15.5); Mean Corpuscular HGB CONC 31.3 g/dL (32.0-36.0); Mean Corpuscular Hemoglobin 21.9 pg (27.0-33.0); Mean Corpuscular Volume 69.9 fl (81.6-98.3); Mean Platelet Volume 10.2 fl (7.4-10.4); Platelet Count 459 10x3/uL (150-450); RBC Distribution Width 19.6 % (11.5-14.5); Red Blood Cell (RBC) Count 3.79 10x6/uL (3.90-5.03); White Blood Cell (WBC) Count 24.5 10x3/uL (3.5-10.5)
[2022-03-24 05:10] LABS: Anion Gap 12 mmol/L (10-20); BUN (Urea Nitrogen) 12 mg/dL (7.0-18.7); Calc. Creatinine Clearance 167 mL/min (70-130); Calcium 8.8 mg/dL (7.8-10.44); Carbon Dioxide 25 mmol/L (22-29); Chloride 109 mmol/L (98-107); Glucose 129 mg/dL (70-105); Magnesium 1.8 mg/dL (1.6-2.6); Potassium 3.7 mmol/L (3.5-5.1); Sodium 142 mmol/L (136-145)
[2022-03-24] MEDS: methylPREDNISolone Sod Succ 40 MG VIAL IVP SCH ×3 (06:12→20:33)
[2022-03-24 06:23] LABS: MDiff Complete? YES
[2022-03-24 06:30] LABS: Band 4 % (5-11); Lymphocytes 6 % (21-51); Monocytes 3 % (0-10); Neutrophil 85 % (42-75)
[2022-03-24 06:47] LABS: Anisocytosis MODERATE=16-30 cells (100X) (0-5/hpf)
[2022-03-24 06:48] LABS: Hypochromia MODERATE=16-30 cells (100X) (0-5/hpf); Microcytosis MODERATE=15-30 cells (100X) (0-5/hpf); Poikilocytosis MODERATE=16-30 cells (100X) (0-5/hpf); Polychromasia MODERATE = 3-4 cells (100X) (0-2/hpf)
[2022-03-24 06:49] LABS: Ovalocytes SLIGHT = 2-5 cells (100X) (0-1/hpf); Schistocytes MODERATE= 6-15 cells (100X) (0-1/hpf); Tear Drops SLIGHT = 2-5 cells (100X) (0-1/hpf)
[2022-03-24 06:50] LABS: Platelet Morphology Comment Appears Increased
[2022-03-24] MEDS: Pantoprazole 40 MG VIAL IVP SCH (08:42)
[2022-03-24] MEDS: Fluconazole 100 MG TAB PO SCH (08:42)
[2022-03-24] MEDS: Dicyclomine 20 MG TAB PO SCH ×4 (08:42→20:29)
[2022-03-24] MEDS: Mesalamine DR 400 mg Capsule PO SCH (08:43)
[2022-03-24] MEDS: HYDROcodone/Acetaminophen 5/325 mg Tablet PO PRN (13:34)
[2022-03-24] MEDS: hydrOXYzine 10 MG TAB PO PRN ×2 (13:40→22:05)
[2022-03-24] MEDS ORDERED: Dicyclomine 20 MG TAB PO SCH (22:30)
[2022-03-24] MEDS ORDERED: Dicyclomine 10 MG CAP PO SCH (22:30)
[2022-03-25] MEDS: HYDROcodone/Acetaminophen 5/325 mg Tablet PO PRN ×3 (01:41→18:14)
[2022-03-25] MEDS: Promethazine HCl 12.5 MG in Sodium Chloride 0.9% 50 ML IVPB PRN ×3 (03:54→21:48)
[2022-03-25] MEDS ORDERED: Dextrose 5 % And 0.9 % NaCl 1,000 ML ONE (03:55)
[2022-03-25] MEDS: Dextrose 5 % And 0.9 % NaCl 1,000 ML IV SCH ×2 (03:56→22:40)
[2022-03-25 04:35] LABS: Hemoglobin 9.1 g/dL (12.0-15.5); Mean Corpuscular HGB CONC 31.9 g/dL (32.0-36.0); Mean Corpuscular Hemoglobin 21.9 pg (27.0-33.0); Mean Corpuscular Volume 68.7 fl (81.6-98.3); Mean Platelet Volume 9.5 fl (7.4-10.4); Platelet Count 438 10x3/uL (150-450); RBC Distribution Width 19.9 % (11.5-14.5); Red Blood Cell (RBC) Count 4.15 10x6/uL (3.90-5.03); White Blood Cell (WBC) Count 22.1 10x3/uL (3.5-10.5)
[2022-03-25 04:47] LABS: Anion Gap 15 mmol/L (10-20); BUN (Urea Nitrogen) 14 mg/dL (7.0-18.7); Calc. Creatinine Clearance 160 mL/min (70-130); Calcium 8.7 mg/dL (7.8-10.44); Carbon Dioxide 22 mmol/L (22-29); Chloride 107 mmol/L (98-107); Glucose 126 mg/dL (70-105); Potassium 3.4 mmol/L (3.5-5.1); Sodium 141 mmol/L (136-145)
[2022-03-25 06:18] LABS: MDiff Complete? YES
[2022-03-25 06:23] LABS: Band 4 % (5-11); Lymphocytes 11 % (21-51); Metamyelocyte 3 % (0-0); Monocytes 2 % (0-10); Myelocyte 1 % (0-0); Neutrophil 79 % (42-75)
[2022-03-25 06:25] LABS: Anisocytosis SLIGHT = 6-15 cells (100X) (0-5/hpf); Microcytosis MODERATE=15-30 cells (100X) (0-5/hpf); Ovalocytes SLIGHT = 2-5 cells (100X) (0-1/hpf); Platelet Morphology Comment Appears Adequate; Schistocytes SLIGHT = 2-5 cells (100X) (0-1/hpf); Target Cells SLIGHT = 2-5 cells (100X) (0-1/hpf); Tear Drops SLIGHT = 2-5 cells (100X) (0-1/hpf)
[2022-03-25] MEDS: Fluconazole 100 MG TAB PO SCH (08:49)
[2022-03-25] MEDS: predniSONE 20 MG TAB PO SCH (08:49)
[2022-03-25] MEDS: Dicyclomine 10 MG CAP PO SCH ×5 (08:50→21:56)
[2022-03-25] MEDS: Pantoprazole 40 MG VIAL IVP SCH (08:50)
[2022-03-25] MEDS: Mesalamine DR 400 mg Capsule PO SCH (08:54)
[2022-03-25] MEDS ORDERED: Ketorolac Tromethamine 30 MG/ML VIAL IVP SCH (12:00)
[2022-03-25] MEDS ORDERED: Magnesium Citrate 300 ML BOT PO SCH (21:15)
[2022-03-26] MEDS: Promethazine HCl 12.5 MG in Sodium Chloride 0.9% 50 ML IVPB PRN ×3 (04:05→22:05)
[2022-03-26 04:56] LABS: #Neutrophils 14.8 10x3/uL (1.5-8.4); %Basophils 0.2 % (0.0-2.0); %Lymphocytes 13.4 % (18.0-47.0); %Monocytes 5.3 % (0.0-10.0); %Neutrophils 77.5 % (40.0-75.0); Hemoglobin 8.4 g/dL (12.0-15.5); Mean Corpuscular HGB CONC 31.6 g/dL (32.0-36.0); Mean Corpuscular Hemoglobin 21.8 pg (27.0-33.0); Mean Corpuscular Volume 68.9 fl (81.6-98.3); Mean Platelet Volume 10.6 fl (7.4-10.4); Platelet Count 400 10x3/uL (150-450); RBC Distribution Width 19.6 % (11.5-14.5); Red Blood Cell (RBC) Count 3.86 10x6/uL (3.90-5.03); White Blood Cell (WBC) Count 19.1 10x3/uL (3.5-10.5)
[2022-03-26 05:05] LABS: Anion Gap 13 mmol/L (10-20); BUN (Urea Nitrogen) 15 mg/dL (7.0-18.7); Calc. Creatinine Clearance 169 mL/min (70-130); Calcium 8.1 mg/dL (7.8-10.44); Carbon Dioxide 28 mmol/L (22-29); Chloride 105 mmol/L (98-107); Glucose 90 mg/dL (70-105); Potassium 3.2 mmol/L (3.5-5.1); Sodium 143 mmol/L (136-145)
[2022-03-26] MEDS: Pantoprazole 40 MG VIAL IVP SCH (08:49)
[2022-03-26] MEDS: hydrOXYzine 10 MG TAB PO PRN (08:49)
[2022-03-26] MEDS: Polyethylene Glycol 3350 17 GM Packet PO SCH (08:49)
[2022-03-26] MEDS: HYDROcodone/Acetaminophen 5/325 mg Tablet PO PRN ×2 (08:50→17:17)
[2022-03-26] MEDS: predniSONE 20 MG TAB PO SCH (08:50)
[2022-03-26] MEDS: Fluconazole 100 MG TAB PO SCH (08:50)
[2022-03-26] MEDS: Mesalamine DR 400 mg Capsule PO SCH (08:51)
[2022-03-26] MEDS ORDERED: Ketorolac Tromethamine 30 MG/ML VIAL IVP SCH (13:00)
[2022-03-26] MEDS: Dextrose 5 % And 0.9 % NaCl 1,000 ML IV SCH (16:26)
[2022-03-27] MEDS: HYDROcodone/Acetaminophen 5/325 mg Tablet PO PRN ×2 (00:13→07:53)
[2022-03-27] MEDS: Promethazine HCl 12.5 MG in Sodium Chloride 0.9% 50 ML IVPB PRN (03:24)
[2022-03-27 04:56] LABS: Mean Corpuscular HGB CONC 31.9 g/dL (32.0-36.0); Mean Corpuscular Volume 68.8 fl (81.6-98.3); Mean Platelet Volume 10.5 fl (7.4-10.4); Platelet Count 393 10x3/uL (150-450); RBC Distribution Width 19.3 % (11.5-14.5); White Blood Cell (WBC) Count 20.1 10x3/uL (3.5-10.5)
[2022-03-27 04:59] LABS: Anion Gap 15 mmol/L (10-20); BUN (Urea Nitrogen) 14 mg/dL (7.0-18.7); Calc. Creatinine Clearance 172 mL/min (70-130); Calcium 8.6 mg/dL (7.8-10.44); Carbon Dioxide 29 mmol/L (22-29); Chloride 101 mmol/L (98-107); Glucose 90 mg/dL (70-105); Potassium 3.3 mmol/L (3.5-5.1); Sodium 142 mmol/L (136-145)
[2022-03-27] MEDS: Dextrose 5 % And 0.9 % NaCl 1,000 ML IV SCH (05:29)
[2022-03-27 07:13] LABS: MDiff Complete? YES
[2022-03-27 07:17] LABS: Band 5 % (5-11); Lymphocytes 13 % (21-51); Monocytes 6 % (0-10); Neutrophil 76 % (42-75)
[2022-03-27 07:18] LABS: Anisocytosis SLIGHT = 6-15 cells (100X) (0-5/hpf); Hypochromia MODERATE=16-30 cells (100X) (0-5/hpf); Microcytosis MODERATE=15-30 cells (100X) (0-5/hpf)
[2022-03-27 07:19] LABS: Platelet Morphology Comment Appears Adequate
[2022-03-27] MEDS: Pantoprazole 40 MG VIAL IVP SCH (07:53)
[2022-03-27] MEDS: predniSONE 20 MG TAB PO SCH (07:54)
[2022-03-27] MEDS: Fluconazole 100 MG TAB PO SCH (07:54)
[2022-03-27] MEDS: Mesalamine DR 400 mg Capsule PO SCH (07:56)
[2022-03-27] MEDS: Polyethylene Glycol 3350 17 GM Packet PO SCH (08:04)
[2022-03-27] MEDS: Ondansetron PF 4 MG/2 ML Vial IVP PRN (08:04)
[2022-03-27 11:20] VITALS: BP 124/86; TEMP 98.2
== END 2022-03-27 11:28 | disposition home or self-care (01) | DRG 386 ==
LOC: CSHERS 02:10 → CSHTELE 10:51 → OBSVTOIN 10:52
PROVIDERS: ADMIT Family Medicine; ATTEND Internal Medicine
DX: K51.90 Ulcerative colitis, unspecified, without complications (principal); F11.20 Opioid dependence, uncomplicated; Z20.822 Contact with and (suspected) exposure to COVID-19; D64.9 Anemia, unspecified; T40.2X5A Adverse effect of other opioids, initial encounter; K59.03 Drug induced constipation; L29.9 Pruritus, unspecified; Z88.2 Allergy status to sulfonamides; Z88.8 Allergy status to other drugs, medicaments and biological substances; Z79.899 Other long term (current) drug therapy
CPT/HCPCS: 36415; 74019; 80048; 80053; 81003; 83690; 83735; 84703; 85025; 87324; 87449; 96374; 96375; 96376; C9113; J1170; J1885; J2270; J2405; J2550; J2920; J7042; J7120; J7512; Q0169; S0028; U0003; U0005

== ENCOUNTER 2022-04-11 14:52 | Emergency (ER) | payer OTHER ==
[2022-04-11] MEDS ORDERED: Ondansetron PF 4 MG/2 ML Vial ONE (15:52)
[2022-04-11] MEDS ORDERED: Pantoprazole 40 MG VIAL ONE (15:53)
[2022-04-11 15:58] LABS: #Neutrophils 7.7 10x3/uL (1.5-8.4); %Basophils 0.1 % (0.0-2.0); %Lymphocytes 8.5 % (18.0-47.0); %Monocytes 0.5 % (0.0-10.0); %Neutrophils 90.4 % (40.0-75.0); Hemoglobin 9.9 g/dL (12.0-15.5); Mean Corpuscular HGB CONC 31.8 g/dL (32.0-36.0); Mean Corpuscular Hemoglobin 21.7 pg (27.0-33.0); Mean Corpuscular Volume 68.1 fl (81.6-98.3); Mean Platelet Volume 9.4 fl (7.4-10.4); Platelet Count 428 10x3/uL (150-450); Red Blood Cell (RBC) Count 4.57 10x6/uL (3.90-5.03); White Blood Cell (WBC) Count 8.5 10x3/uL (3.5-10.5)
[2022-04-11 16:01] LABS: BHCG - Serum Negative (NEGATIVE); Pregs Control Background? CLEAR/WHITE (CLR/WHITE); Pregs Control Bar Appear? YES (CONTROL BAR)
[2022-04-11 16:09] LABS: ALT (SGPT) 34 U/L (8-55); AST (SGOT) 21 U/L (5-34); Albumin 4.5 g/dL (3.5-5.0); Alkaline Phosphatase 50 U/L (40-110); Anion Gap 15 mmol/L (10-20); BUN (Urea Nitrogen) 12 mg/dL (7.0-18.7); Bilirubin, Total 0.3 mg/dL (0.2-1.2); Calc. Creatinine Clearance 0 mL/min (70-130); Calcium 9.2 mg/dL (7.8-10.44); Carbon Dioxide 23 mmol/L (22-29); Chloride 107 mmol/L (98-107); Globulin 3.3 g/dL (2.4-3.5); Glucose 105 mg/dL (70-105); Lipase 110 U/L (8-78); Potassium 4.3 mmol/L (3.5-5.1); Protein, Total 7.8 g/dL (6.0-8.3); Sodium 141 mmol/L (136-145)
[2022-04-11 16:22] LABS: Anisocytosis MODERATE=16-30 cells (100X) (0-5/hpf); Microcytosis MARKED = >30 cells (100X) (0-5/hpf)
[2022-04-11 16:23] LABS: Macrocytosis SLIGHT = 6-15 cells (100X) (0-5/hpf)
[2022-04-11 16:24] LABS: Platelet Morphology Comment Appears Adequate
[2022-04-11] MEDS ORDERED: Morphine 4 MG/ML VIAL ONE (16:24)
[2022-04-11 16:55] LABS: Bilirubin Neg (Negative); Blood, Urine Negative (Negative); Clarity Clear (Clear); Glucose, Urine (Dipstick) Normal (Negative); Ketone, Urine Negative (Negative); Leukocyte Negative (Negative); Nitrite Negative (Negative); Protein, Urine (Dipstick) Negative (Neg-Trace); Specific Gravity, Urine 1.005 (1.002-1.036); Urobilinogen Normal mg/dL (Less than 2)
== END 2022-04-11 17:20 | disposition home or self-care (01) ==
LOC: CSHERS 14:52
DX: R10.32 Left lower quadrant pain (principal); R11.2 Nausea with vomiting, unspecified; G89.29 Other chronic pain; D64.9 Anemia, unspecified; K21.9 Gastro-esophageal reflux disease without esophagitis
CPT/HCPCS: 80053; 81003; 83690; 84484; 84703; 85025; 93005; 96361; 96374; 96375; C9113; J2270; J2405

== ENCOUNTER 2022-04-12 11:42 | Emergency (ER) | payer OTHER ==
[2022-04-12] MEDS ORDERED: Ketorolac Tromethamine 30 MG/ML VIAL ONE (19:57)
== END 2022-04-12 12:28 | disposition left against medical advice (07) ==
LOC: CSHERS 11:42
DX: Z53.21 Procedure and treatment not carried out due to patient leaving prior to being seen by health care provider (principal)
CPT/HCPCS: 93005; 93010; J1885

== ENCOUNTER 2022-04-12 18:24 | Emergency (ER) | payer OTHER | END 2022-04-12 20:11 | disposition home or self-care (01) | LOC: CSHERS 18:24 | DX: M25.511 Pain in right shoulder (principal); K21.9 Gastro-esophageal reflux disease without esophagitis ==

== ENCOUNTER 2022-06-16 12:00 | Observation (INO) | payer OTHER ==
[2022-06-16 13:14] LABS: Bilirubin Neg (Negative); Blood, Urine 25 (Negative); Clarity Clear (Clear); Glucose, Urine (Dipstick) Normal (Negative); Ketone, Urine Negative (Negative); Leukocyte 25 (Negative); Nitrite Negative (Negative); Protein, Urine (Dipstick) 15 mg/dl (Neg-Trace); Specific Gravity, Urine 1.015 (1.002-1.036); Urobilinogen Normal mg/dL (Less than 2); pH, Urine 6.5 (5.0-9.0)
[2022-06-16 13:23] LABS: Bacteria/HPF None Seen HPF (None Seen); Mucous/LPF Few LPF (<2+); RBC/HPF 0-3 HPF (0-3)
[2022-06-16 13:29] LABS: BHCG - Serum Negative (NEGATIVE); Hemoglobin 9.8 g/dL (12.0-15.5); Mean Corpuscular HGB CONC 30.2 g/dL (32.0-36.0); Mean Platelet Volume 9.5 fl (7.4-10.4); Platelet Count 385 10x3/uL (150-450); Pregs Control Background? CLEAR/WHITE (CLR/WHITE); Pregs Control Bar Appear? YES (CONTROL BAR); RBC Distribution Width 15.9 % (11.5-14.5); Red Blood Cell (RBC) Count 4.91 10x6/uL (3.90-5.03); White Blood Cell (WBC) Count 3.9 10x3/uL (3.5-10.5)
[2022-06-16 13:30] LABS: MDiff Complete? YES
[2022-06-16 13:33] LABS: ALT (SGPT) 23 U/L (8-55); AST (SGOT) 32 U/L (5-34); Albumin 4.4 g/dL (3.5-5.0); Alkaline Phosphatase 63 U/L (40-110); Anion Gap 10 mmol/L (10-20); BUN (Urea Nitrogen) 10 mg/dL (7.0-18.7); Bilirubin, Total 0.4 mg/dL (0.2-1.2); Calc. Creatinine Clearance 0 mL/min (70-130); Calcium 9.5 mg/dL (7.8-10.44); Carbon Dioxide 28 mmol/L (22-29); Chloride 105 mmol/L (98-107); Estimated GFR 106; Globulin 3.5 g/dL (2.4-3.5); Glucose 88 mg/dL (70-105); Lipase 47 U/L (8-78); Potassium 4.1 mmol/L (3.5-5.1); Protein, Total 7.9 g/dL (6.0-8.3); Sodium 139 mmol/L (136-145)
[2022-06-16 13:50] LABS: Neutrophil 38 % (42-75)
[2022-06-16 13:51] LABS: Eosinophils 1 % (0-10); Lymphocytes 55 % (21-51); Monocytes 6 % (0-10)
[2022-06-16 13:53] LABS: Hypochromia SLIGHT = 6-15 cells (100X) (0-5/hpf); Microcytosis MODERATE=15-30 cells (100X) (0-5/hpf)
[2022-06-16 13:55] LABS: Anisocytosis SLIGHT = 6-15 cells (100X) (0-5/hpf); Poikilocytosis SLIGHT = 6-15 cells (100X) (0-5/hpf)
[2022-06-16 13:56] LABS: Ovalocytes SLIGHT = 2-5 cells (100X) (0-1/hpf)
[2022-06-16 13:58] LABS: Elliptocytes SLIGHT = 2-5 cells (100X) (0-1/hpf)
[2022-06-16] MEDS ORDERED: Ondansetron PF 4 MG/2 ML Vial ONE (14:03)
[2022-06-16] MEDS ORDERED: Dicyclomine 20 MG/2 ML VIAL ONE (14:03)
[2022-06-16] MEDS ORDERED: Acetaminophen 325 MG TAB PO PRN (14:46)
[2022-06-16] MEDS ORDERED: Ondansetron ODT 4 MG TAB PO PRN (14:46)
[2022-06-16] MEDS ORDERED: Pantoprazole 40 MG VIAL ONE (14:49)
[2022-06-16] MEDS: methylPREDNISolone Sod Succ 40 MG VIAL IVP SCH (16:38)
[2022-06-16] MEDS: Ondansetron PF 4 MG/2 ML Vial IVP PRN ×2 (16:38→21:55)
[2022-06-16] MEDS: Sodium Chloride 0.9% 1,000 ML IV SCH (16:38)
[2022-06-16] MEDS ORDERED: Morphine 2 MG/ML VIAL SLOW IVP SCH (17:00)
[2022-06-16 19:09] LABS: Hemoglobin 9.1 g/dL (12.0-15.5)
[2022-06-17] MEDS: methylPREDNISolone Sod Succ 40 MG VIAL IVP SCH ×3 (00:15→12:08)
[2022-06-17] MEDS: Sodium Chloride 0.9% 1,000 ML IV SCH ×2 (01:16→08:29)
[2022-06-17] MEDS ORDERED: Promethazine HCl 12.5 MG in Sodium Chloride 0.9% 50 ML IVPB SCH (03:45)
[2022-06-17 04:34] LABS: Anion Gap 12 mmol/L (10-20); BUN (Urea Nitrogen) 8 mg/dL (7.0-18.7); Calc. Creatinine Clearance 81 mL/min (70-130); Calcium 9.3 mg/dL (7.8-10.44); Carbon Dioxide 21 mmol/L (22-29); Chloride 110 mmol/L (98-107); Estimated GFR 109; Glucose 124 mg/dL (70-105); Potassium 4.2 mmol/L (3.5-5.1); Sodium 139 mmol/L (136-145)
[2022-06-17 04:51] LABS: Hemoglobin 9.4 g/dL (12.0-15.5); Mean Corpuscular HGB CONC 31.6 g/dL (32.0-36.0); Mean Corpuscular Hemoglobin 20.3 pg (27.0-33.0); Mean Corpuscular Volume 64.3 fl (81.6-98.3); Mean Platelet Volume 9.4 fl (7.4-10.4); Platelet Count 378 10x3/uL (150-450); Red Blood Cell (RBC) Count 4.62 10x6/uL (3.90-5.03); White Blood Cell (WBC) Count 3.2 10x3/uL (3.5-10.5)
[2022-06-17 05:27] LABS: MDiff Complete? YES
[2022-06-17 05:35] LABS: Band 1 % (5-11); Lymphocytes 18 % (21-51); Monocytes 1 % (0-10); Neutrophil 74 % (42-75); Reactive Lymphocytes 6 % (0-10)
[2022-06-17 05:39] LABS: Hypochromia SLIGHT = 6-15 cells (100X) (0-5/hpf); Ovalocytes SLIGHT = 2-5 cells (100X) (0-1/hpf); Platelet Morphology Comment Appears Adequate; Poikilocytosis SLIGHT = 6-15 cells (100X) (0-5/hpf)
[2022-06-17 05:40] LABS: Schistocytes SLIGHT = 2-5 cells (100X) (0-1/hpf)
[2022-06-17] MEDS ORDERED: Mesalamine DR 400 mg Capsule PO SCH (09:00)
[2022-06-17] MEDS ORDERED: Pantoprazole 40 MG VIAL IVP SCH (09:00)
[2022-06-17 12:42] VITALS: BMI 20.2
[2022-06-17 13:04] VITALS: BP 102/65; TEMP 98.1
[2022-06-17] MEDS: Ondansetron PF 4 MG/2 ML Vial IVP PRN (14:51)
[2022-06-17] MEDS ORDERED: methylPREDNISolone Sod Succ 40 MG VIAL IVP SCH (21:00)
== END 2022-06-17 17:44 | disposition home or self-care (01) ==
LOC: CSHERS 12:00 → CSHTELE 15:23 → INTOOBSV 15:23
PROVIDERS: ADMIT Nurse Practitioner Family; ATTEND Nurse Practitioner Family
DX: K51.50 Left sided colitis without complications (principal); K92.0 Hematemesis; D64.9 Anemia, unspecified; Z79.52 Long term (current) use of systemic steroids; Z79.899 Other long term (current) drug therapy; Z88.2 Allergy status to sulfonamides; Z88.8 Allergy status to other drugs, medicaments and biological substances
CPT/HCPCS: 36415; 74022; 80048; 80053; 81003; 81015; 83690; 84703; 85025; 96361; 96372; 96374; 96375; 96376; C9113; G0378; J2270; J2405; J2920; J7050

== ENCOUNTER 2022-07-07 16:15 | Emergency (ER) | payer OTHER ==
[2022-07-07 17:20] LABS: Bilirubin Neg (Negative); Blood, Urine Negative (Negative); Glucose, Urine (Dipstick) Normal (Negative); Ketone, Urine Negative (Negative); Leukocyte Negative (Negative); Nitrite Positive (Negative); Protein, Urine (Dipstick) 100 mg/dl (Neg-Trace); Urobilinogen Normal mg/dL (Less than 2)
[2022-07-07 17:21] LABS: Clarity Hazy (Clear)
[2022-07-07 17:26] LABS: Pregnancy Test - Urine (BHCG) Negative (Negative); Pregu Control Background? CLEAR/WHITE (CLR/WHITE); Pregu Control Bar Appear? YES (CONTROL BAR)
[2022-07-07 17:29] LABS: Bacteria/HPF 3+ HPF (None Seen); RBC/HPF None Seen HPF (0-3); WBC/HPF 0-3 HPF (0-3)
== END 2022-07-07 18:56 | disposition home or self-care (01) ==
LOC: CSHERS 16:15
DX: N39.0 Urinary tract infection, site not specified (principal); D64.9 Anemia, unspecified; K21.9 Gastro-esophageal reflux disease without esophagitis
CPT/HCPCS: 81003; 81015; 81025; 87086; 99284

== ENCOUNTER 2022-07-08 04:03 | Emergency (ER) | payer OTHER ==
[2022-07-08] MEDS ORDERED: Ketorolac Tromethamine 30 MG/ML VIAL ONE (04:47)
== END 2022-07-08 04:51 | disposition left against medical advice (07) ==
LOC: CSHERS 04:03
DX: N39.0 Urinary tract infection, site not specified (principal); D64.9 Anemia, unspecified; K21.9 Gastro-esophageal reflux disease without esophagitis; Z53.21 Procedure and treatment not carried out due to patient leaving prior to being seen by health care provider
CPT/HCPCS: 81003; 81015; 81025; 87086; 99284; J1885

== ENCOUNTER 2022-07-25 10:55 | Emergency (ER) | payer OTHER ==
[2022-07-25 11:49] LABS: BHCG - Serum Negative (NEGATIVE); Pregs Control Background? CLEAR/WHITE (CLR/WHITE); Pregs Control Bar Appear? YES (CONTROL BAR)
[2022-07-25 11:59] LABS: ALT (SGPT) 14 U/L (8-55); AST (SGOT) 19 U/L (5-34); Albumin 4.5 g/dL (3.5-5.0); Alkaline Phosphatase 65 U/L (40-110); Anion Gap 13 mmol/L (10-20); BUN (Urea Nitrogen) 11 mg/dL (7.0-18.7); Bilirubin, Total 0.4 mg/dL (0.2-1.2); Calc. Creatinine Clearance 0 mL/min (70-130); Calcium 9.4 mg/dL (7.8-10.44); Carbon Dioxide 21 mmol/L (22-29); Chloride 108 mmol/L (98-107); Estimated GFR 92; Globulin 3.1 g/dL (2.4-3.5); Glucose 89 mg/dL (70-105); Potassium 3.6 mmol/L (3.5-5.1); Protein, Total 7.6 g/dL (6.0-8.3); Sodium 138 mmol/L (136-145)
[2022-07-25] MEDS ORDERED: Ketorolac Tromethamine 30 MG/ML VIAL ONE (12:00)
[2022-07-25 12:02] LABS: #Monocytes 0.3 10x3/uL (0.0-1.1); #Neutrophils 3.8 10x3/uL (1.5-8.4); %Basophils 0.2 % (0.0-2.0); %Eosinophils 0.6 % (0.0-6.0); %Lymphocytes 12.5 % (18.0-47.0); %Monocytes 5.5 % (0.0-10.0); Hemoglobin 9.5 g/dL (12.0-15.5); Mean Corpuscular HGB CONC 31.7 g/dL (32.0-36.0); Mean Corpuscular Volume 63.3 fl (81.6-98.3); Mean Platelet Volume 10.1 fl (7.4-10.4); Platelet Count 345 10x3/uL (150-450); RBC Distribution Width 18.9 % (11.5-14.5); Red Blood Cell (RBC) Count 4.74 10x6/uL (3.90-5.03); White Blood Cell (WBC) Count 4.7 10x3/uL (3.5-10.5)
[2022-07-25 12:47] LABS: Bilirubin Neg (Negative); Blood, Urine Negative (Negative); Clarity Clear (Clear); Glucose, Urine (Dipstick) Normal (Negative); Ketone, Urine Negative (Negative); Leukocyte 25 (Negative); Nitrite Positive (Negative); Protein, Urine (Dipstick) Negative (Neg-Trace); Urobilinogen Normal mg/dL (Less than 2)
[2022-07-25 12:56] LABS: Bacteria/HPF 3+ HPF (None Seen); RBC/HPF None Seen HPF (0-3); WBC/HPF 0-3 HPF (0-3)
[2022-07-25 13:27] LABS: SARS-CoV-2 NAA Rapid Test DETECTED (NotDetected)
== END 2022-07-25 14:30 | disposition home or self-care (01) ==
LOC: CSHERS 10:55
DX: U07.1 COVID-19 (principal); N30.00 Acute cystitis without hematuria; K21.9 Gastro-esophageal reflux disease without esophagitis; D64.9 Anemia, unspecified
CPT/HCPCS: 71275; 80053; 81003; 81015; 84703; 85025; 87086; 94760; 96361; 96374; J1885

== ENCOUNTER 2022-08-04 22:20 | Emergency (ER) | payer OTHER | END 2022-08-05 00:22 | disposition home or self-care (01) | LOC: CSHERS 22:20 | DX: R51.9 Headache, unspecified (principal) | CPT/HCPCS: 99283 ==

== ENCOUNTER 2022-10-11 11:20 | Observation (INO) | payer OTHER ==
[2022-10-11 12:12] LABS: Bilirubin Neg (Negative); Blood, Urine Negative (Negative); Clarity Sl. Cloudy (Clear); Glucose, Urine (Dipstick) Normal (Negative); Ketone, Urine Negative (Negative); Leukocyte 500 (Negative); Nitrite Negative (Negative); Protein, Urine (Dipstick) Negative (Neg-Trace); Specific Gravity, Urine 1.015 (1.005-1.030); Urobilinogen Normal mg/dL (Less than 2)
[2022-10-11 12:30] LABS: #Eosinphils 0.1 10x3/uL (0.0-0.5); #Monocytes 0.4 10x3/uL (0.0-1.1); #Neutrophils 3.7 10x3/uL (1.5-8.4); %Basophils 0.4 % (0.0-2.0); %Eosinophils 1.3 % (0.0-6.0); %Lymphocytes 38.5 % (18.0-47.0); %Monocytes 5.5 % (0.0-10.0); %Neutrophils 53.9 % (40.0-75.0); ALT (SGPT) 33 U/L (8-55); AST (SGOT) 32 U/L (5-34); Albumin 4.2 g/dL (3.5-5.0); Alkaline Phosphatase 48 U/L (40-110); Anion Gap 13 mmol/L (10-20); BUN (Urea Nitrogen) 11 mg/dL (7.0-18.7); Bilirubin, Total 0.4 mg/dL (0.2-1.2); Calc. Creatinine Clearance 0 mL/min (70-130); Calcium 8.8 mg/dL (7.8-10.44); Carbon Dioxide 22 mmol/L (22-29); Chloride 106 mmol/L (98-107); Estimated GFR 113; Globulin 3.2 g/dL (2.4-3.5); Glucose 85 mg/dL (70-105); Hemoglobin 9.2 g/dL (12.0-15.5); Lipase 34 U/L (8-78); Mean Corpuscular HGB CONC 31.9 g/dL (32.0-36.0); Mean Corpuscular Hemoglobin 20.9 pg (27.0-33.0); Mean Corpuscular Volume 65.3 fl (81.6-98.3); Mean Platelet Volume 11.1 fl (7.4-10.4); Platelet Count 293 10x3/uL (150-450); Potassium 3.5 mmol/L (3.5-5.1); Protein, Total 7.4 g/dL (6.0-8.3); RBC Distribution Width 19.6 % (11.5-14.5); RBC/HPF 0-3 HPF (0-3); Red Blood Cell (RBC) Count 4.41 10x6/uL (3.90-5.03); Sodium 137 mmol/L (136-145); White Blood Cell (WBC) Count 6.9 10x3/uL (3.5-10.5)
[2022-10-11 12:31] LABS: Bacteria/HPF Rare-Few HPF (None Seen)
[2022-10-11 13:09] LABS: Anisocytosis MODERATE=16-30 cells (100X) (0-5/hpf); Microcytosis MODERATE=15-30 cells (100X) (0-5/hpf); Poikilocytosis SLIGHT = 6-15 cells (100X) (0-5/hpf)
[2022-10-11 13:10] LABS: Elliptocytes SLIGHT = 2-5 cells (100X) (0-1/hpf); Hypochromia SLIGHT = 6-15 cells (100X) (0-5/hpf); Ovalocytes SLIGHT = 2-5 cells (100X) (0-1/hpf); Schistocytes SLIGHT = 2-5 cells (100X) (0-1/hpf)
[2022-10-11 13:12] LABS: Platelet Morphology Comment Appears Adequate
[2022-10-11] MEDS ORDERED: Acetaminophen 500 MG TAB ONE (13:57)
[2022-10-11] MEDS ORDERED: Ondansetron PF 4 MG/2 ML Vial ONE (13:57)
[2022-10-11] MEDS ORDERED: Promethazine HCl 25 MG/ML VIAL ONE (14:52)
[2022-10-11] MEDS ORDERED: Morphine 2 MG/ML VIAL ONE (15:40)
[2022-10-11] MEDS ORDERED: Ondansetron PF 4 MG/2 ML Vial IVP PRN (16:29)
[2022-10-11] MEDS ORDERED: Acetaminophen 325 MG TAB PO PRN (16:29)
[2022-10-11] MEDS ORDERED: Ondansetron ODT 4 MG TAB PO PRN (16:29)
[2022-10-11] MEDS ORDERED: Acetaminophen 500 MG TAB PO PRN (17:15)
[2022-10-11 19:49] VITALS: BMI 20.2
[2022-10-11] MEDS: HYDROcodone/Acetaminophen 5/325 mg Tablet PO PRN (19:58)
[2022-10-11] MEDS: Lactated Ringer's 1,000 ML IV SCH (19:59)
[2022-10-11] MEDS: Promethazine 25 MG TAB PO PRN (20:49)
[2022-10-11] MEDS: Morphine 4 MG/ML VIAL SLOW IVP PRN (20:50)
[2022-10-12] MEDS: Morphine 4 MG/ML VIAL SLOW IVP PRN ×4 (01:39→19:32)
[2022-10-12] MEDS: Promethazine 25 MG TAB PO PRN ×3 (02:12→14:06)
[2022-10-12] MEDS ORDERED: hydrOXYzine Pamoate 25 mg Capsule PO SCH (02:15)
[2022-10-12 04:37] LABS: Hemoglobin 7.5 g/dL (12.0-15.5); Mean Corpuscular HGB CONC 33.2 g/dL (32.0-36.0); Mean Corpuscular Hemoglobin 21.4 pg (27.0-33.0); Mean Corpuscular Volume 64.4 fl (81.6-98.3); Platelet Count 255 10x3/uL (150-450); RBC Distribution Width 19.3 % (11.5-14.5); Red Blood Cell (RBC) Count 3.51 10x6/uL (3.90-5.03); White Blood Cell (WBC) Count 7.4 10x3/uL (3.5-10.5)
[2022-10-12] MEDS: Lactated Ringer's 1,000 ML IV SCH ×3 (07:36→18:54)
[2022-10-12 08:06] LABS: SARS-CoV-2 NAA Rapid Test Not Detected (NotDetected)
[2022-10-12] MEDS: HYDROcodone/Acetaminophen 5/325 mg Tablet PO PRN (12:11)
[2022-10-12] MEDS ORDERED: cefTRIAXone\\ROCEPHIN 1 GM in Sodium Chloride 0.9% 100 ML IVPB SCH (13:00)
[2022-10-12] MEDS: Promethazine HCl 12.5 MG, Admixture Fee 1 EACH in Sodium Chloride 0.9% 50 ML IVPB PRN (20:34)
[2022-10-13] MEDS: Morphine 4 MG/ML VIAL SLOW IVP PRN ×2 (03:23→08:24)
[2022-10-13] MEDS: Promethazine HCl 12.5 MG, Admixture Fee 1 EACH in Sodium Chloride 0.9% 50 ML IVPB PRN (03:24)
[2022-10-13] MEDS: Lactated Ringer's 1,000 ML IV SCH ×2 (03:42→10:09)
[2022-10-13 04:46] LABS: ALT (SGPT) 31 U/L (8-55); AST (SGOT) 30 U/L (5-34); Albumin 3.6 g/dL (3.5-5.0); Alkaline Phosphatase 42 U/L (40-110); Anion Gap 14 mmol/L (10-20); BUN (Urea Nitrogen) 8 mg/dL (7.0-18.7); Bilirubin, Total 0.4 mg/dL (0.2-1.2); Calc. Creatinine Clearance 83 mL/min (70-130); Calcium 8.5 mg/dL (7.8-10.44); Carbon Dioxide 20 mmol/L (22-29); Chloride 107 mmol/L (98-107); Estimated GFR 111; Globulin 2.7 g/dL (2.4-3.5); Glucose 91 mg/dL (70-105); Potassium 3.9 mmol/L (3.5-5.1); Protein, Total 6.3 g/dL (6.0-8.3); Sodium 137 mmol/L (136-145)
[2022-10-13 08:01] VITALS: BP 105/59; TEMP 98.8
[2022-10-13] MEDS ORDERED: Famotidine/PF 20 mg/2ml Vial SLOW IVP SCH (09:00)
[2022-10-13] MEDS: Promethazine 25 MG TAB PO PRN (09:14)
[2022-10-13] MEDS: HYDROcodone/Acetaminophen 5/325 mg Tablet PO PRN (10:25)
== END 2022-10-13 11:18 | disposition home or self-care (01) ==
LOC: CSHERS 11:20 → CSHPP 16:21 → INTOOBSV 16:21 → CSHPP 18:54 → UNDOADMIN 18:54
PROVIDERS: ADMIT Obstetrics & Gynecology; ATTEND Obstetrics & Gynecology
DX: O34.219 Maternal care for unspecified type scar from previous cesarean delivery (principal); O99.011 Anemia complicating pregnancy, first trimester; D64.9 Anemia, unspecified; O99.611 Diseases of the digestive system complicating pregnancy, first trimester; K51.90 Ulcerative colitis, unspecified, without complications; Z3A.01 Less than 8 weeks gestation of pregnancy; Z98.890 Other specified postprocedural states; Z88.0 Allergy status to penicillin; Z88.6 Allergy status to analgesic agent; Z88.2 Allergy status to sulfonamides; Z88.1 Allergy status to other antibiotic agents; Z79.899 Other long term (current) drug therapy
CPT/HCPCS: 36415; 36416; 76856; 80053; 81003; 81015; 83605; 83690; 84702; 85014; 85018; 85025; 85027; 86900; 86901; 87086; 94760; 96374; 96375; 96376; G0378; J0696; J2270; J2405; J2550; J3490; J7120; Q0162; Q0169; Q0177; S0028; U0002

== ENCOUNTER 2022-10-13 23:39 | Emergency (ER) | payer OTHER ==
[2022-10-14] MEDS ORDERED: Dicyclomine 20 MG/2 ML VIAL ONE (01:30)
[2022-10-14 01:33] LABS: ALT (SGPT) 39 U/L (8-55); AST (SGOT) 40 U/L (5-34); Albumin 4.4 g/dL (3.5-5.0); Alkaline Phosphatase 48 U/L (40-110); Anion Gap 14 mmol/L (10-20); BUN (Urea Nitrogen) 8 mg/dL (7.0-18.7); Bilirubin, Total 0.4 mg/dL (0.2-1.2); Calc. Creatinine Clearance 0 mL/min (70-130); Calcium 8.9 mg/dL (7.8-10.44); Carbon Dioxide 17 mmol/L (22-29); Chloride 108 mmol/L (98-107); Estimated GFR 104; Globulin 3.1 g/dL (2.4-3.5); Glucose 94 mg/dL (70-105); Potassium 4.2 mmol/L (3.5-5.1); Protein, Total 7.5 g/dL (6.0-8.3); Sodium 135 mmol/L (136-145)
[2022-10-14 01:43] LABS: Hemoglobin 8.3 g/dL (12.0-15.5); Mean Corpuscular Hemoglobin 21.3 pg (27.0-33.0); Mean Corpuscular Volume 66.6 fl (81.6-98.3); Mean Platelet Volume 10.4 fl (7.4-10.4); Platelet Count 300 10x3/uL (150-450); RBC Distribution Width 20.1 % (11.5-14.5); Red Blood Cell (RBC) Count 3.89 10x6/uL (3.90-5.03); White Blood Cell (WBC) Count 7.6 10x3/uL (3.5-10.5)
[2022-10-14 01:47] LABS: #Eosinphils 0.1 10x3/uL (0.0-0.5); #Monocytes 0.6 10x3/uL (0.0-1.1); #Neutrophils 4.5 10x3/uL (1.5-8.4); %Basophils 0.1 % (0.0-2.0); %Eosinophils 0.8 % (0.0-6.0); %Lymphocytes 30.8 % (18.0-47.0); %Monocytes 7.7 % (0.0-10.0); %Neutrophils 60.1 % (40.0-75.0)
[2022-10-14] MEDS ORDERED: Meclizine HCl 25 MG TAB ONE (02:35)
[2022-10-14] MEDS ORDERED: HYDROcodone/Acetaminophen 5/325 mg Tablet ONE (02:36)
[2022-10-14] MEDS ORDERED: Prochlorperazine Maleate 5 MG TAB ONE (03:14)
[2022-10-14 03:31] LABS: Elliptocytes SLIGHT = 2-5 cells (100X) (0-1/hpf); Schistocytes SLIGHT = 2-5 cells (100X) (0-1/hpf)
[2022-10-14 03:32] LABS: Platelet Morphology Comment Appears Adequate
== END 2022-10-14 03:36 | disposition home or self-care (01) ==
LOC: CSHERS 23:39
DX: O21.8 Other vomiting complicating pregnancy (principal); O26.891 Other specified pregnancy related conditions, first trimester; R19.7 Diarrhea, unspecified; O99.611 Diseases of the digestive system complicating pregnancy, first trimester; K21.9 Gastro-esophageal reflux disease without esophagitis; Z3A.01 Less than 8 weeks gestation of pregnancy
CPT/HCPCS: 80053; 84702; 85025; 99284; Q0164

== ENCOUNTER 2022-10-16 00:19 | Emergency (ER) | payer OTHER ==
[2022-10-16 01:39] LABS: #Eosinphils 0.2 10x3/uL (0.0-0.5); #Monocytes 0.5 10x3/uL (0.0-1.1); #Neutrophils 3.3 10x3/uL (1.5-8.4); %Basophils 0.3 % (0.0-2.0); %Eosinophils 2.3 % (0.0-6.0); %Monocytes 6.9 % (0.0-10.0); %Neutrophils 50.3 % (40.0-75.0); Mean Corpuscular Hemoglobin 21.3 pg (27.0-33.0); Mean Corpuscular Volume 66.5 fl (81.6-98.3); Mean Platelet Volume 8.9 fl (7.4-10.4); Platelet Count 287 10x3/uL (150-450); Red Blood Cell (RBC) Count 3.76 10x6/uL (3.90-5.03); White Blood Cell (WBC) Count 6.5 10x3/uL (3.5-10.5)
[2022-10-16 01:51] LABS: ALT (SGPT) 23 U/L (8-55); AST (SGOT) 23 U/L (5-34); Alkaline Phosphatase 40 U/L (40-110); Anion Gap 12 mmol/L (10-20); BUN (Urea Nitrogen) 8 mg/dL (7.0-18.7); Bilirubin, Total 0.6 mg/dL (0.2-1.2); Calc. Creatinine Clearance 0 mL/min (70-130); Calcium 8.5 mg/dL (7.8-10.44); Carbon Dioxide 19 mmol/L (22-29); Chloride 111 mmol/L (98-107); Estimated GFR 117; Globulin 2.9 g/dL (2.4-3.5); Glucose 91 mg/dL (70-105); Potassium 3.4 mmol/L (3.5-5.1); Protein, Total 6.9 g/dL (6.0-8.3); Sodium 139 mmol/L (136-145)
[2022-10-16] MEDS ORDERED: Promethazine HCl 25 MG/ML VIAL ONE (02:08)
[2022-10-16] MEDS ORDERED: Morphine 2 MG/ML VIAL ONE (03:40)
[2022-10-16 03:58] LABS: Schistocytes SLIGHT = 2-5 cells (100X) (0-1/hpf)
[2022-10-16 03:59] LABS: Elliptocytes SLIGHT = 2-5 cells (100X) (0-1/hpf); Platelet Morphology Comment Appears Adequate
== END 2022-10-16 05:20 | disposition home or self-care (01) ==
LOC: CSHERS 00:19
DX: O20.9 Hemorrhage in early pregnancy, unspecified (principal); O21.9 Vomiting of pregnancy, unspecified; Z3A.01 Less than 8 weeks gestation of pregnancy
CPT/HCPCS: 76856; 80053; 84702; 85025; 86900; 86901; 96365; 96375; J2270; J2550

== ENCOUNTER 2022-10-17 10:54 | Emergency (ER) | payer OTHER ==
[2022-10-17] MEDS ORDERED: Promethazine HCl 25 MG/ML VIAL ONE (12:20)
[2022-10-17] MEDS ORDERED: Morphine 4 MG/ML VIAL ONE (12:20)
[2022-10-17 13:03] LABS: #Eosinphils 0.1 10x3/uL (0.0-0.5); #Monocytes 0.2 10x3/uL (0.0-1.1); %Basophils 0.2 % (0.0-2.0); %Eosinophils 1.6 % (0.0-6.0); %Lymphocytes 29.2 % (18.0-47.0); %Monocytes 3.4 % (0.0-10.0); %Neutrophils 65.4 % (40.0-75.0); Hemoglobin 7.8 g/dL (12.0-15.5); Mean Corpuscular HGB CONC 32.6 g/dL (32.0-36.0); Mean Corpuscular Hemoglobin 21.4 pg (27.0-33.0); Mean Corpuscular Volume 65.7 fl (81.6-98.3); Mean Platelet Volume 10.9 fl (7.4-10.4); Platelet Count 298 10x3/uL (150-450); RBC Distribution Width 19.5 % (11.5-14.5); Red Blood Cell (RBC) Count 3.64 10x6/uL (3.90-5.03); White Blood Cell (WBC) Count 6.1 10x3/uL (3.5-10.5)
[2022-10-17 13:12] LABS: ALT (SGPT) 21 U/L (8-55); AST (SGOT) 23 U/L (5-34); Alkaline Phosphatase 43 U/L (40-110); Anion Gap 11 mmol/L (10-20); BUN (Urea Nitrogen) 7 mg/dL (7.0-18.7); Bilirubin, Total 0.3 mg/dL (0.2-1.2); Calc. Creatinine Clearance 0 mL/min (70-130); Carbon Dioxide 20 mmol/L (22-29); Chloride 110 mmol/L (98-107); Estimated GFR 122; Globulin 2.9 g/dL (2.4-3.5); Glucose 89 mg/dL (70-105); Lipase 33 U/L (8-78); Potassium 3.3 mmol/L (3.5-5.1); Protein, Total 6.9 g/dL (6.0-8.3); Sodium 138 mmol/L (136-145)
[2022-10-17 15:34] LABS: Bilirubin Neg (Negative); Blood, Urine Negative (Negative); Clarity Clear (Clear); Glucose, Urine (Dipstick) Normal (Negative); Ketone, Urine 15 mg/dL (Negative); Leukocyte 100 (Negative); Nitrite Negative (Negative); Protein, Urine (Dipstick) Negative (Neg-Trace); Urobilinogen Normal mg/dL (Less than 2)
[2022-10-17 15:51] LABS: RBC/HPF 0-3 HPF (0-3)
[2022-10-17 15:53] LABS: Bacteria/HPF 1+ HPF (None Seen); Trichomonas/HPF Rare HPF (None Seen)
[2022-10-17 15:54] LABS: Mucous/LPF Rare LPF (<2+)
== END 2022-10-17 16:10 | disposition home or self-care (01) ==
LOC: CSHERS 10:54
DX: O99.611 Diseases of the digestive system complicating pregnancy, first trimester (principal); K92.1 Melena; Z3A.01 Less than 8 weeks gestation of pregnancy; K21.9 Gastro-esophageal reflux disease without esophagitis
CPT/HCPCS: 76856; 80053; 81003; 81015; 83605; 83690; 84702; 85025; 96374; 96375; J2270; J2550

== ENCOUNTER 2022-10-18 20:01 | Emergency (ER) | payer OTHER ==
[2022-10-18 22:02] LABS: #Eosinphils 0.1 10x3/uL (0.0-0.5); #Monocytes 0.3 10x3/uL (0.0-1.1); %Basophils 0.3 % (0.0-2.0); %Eosinophils 2.3 % (0.0-6.0); %Lymphocytes 42.1 % (18.0-47.0); %Monocytes 4.3 % (0.0-10.0); %Neutrophils 50.3 % (40.0-75.0); Hemoglobin 8.5 g/dL (12.0-15.5); Mean Corpuscular HGB CONC 32.3 g/dL (32.0-36.0); Mean Corpuscular Volume 65.1 fl (81.6-98.3); Mean Platelet Volume 10.6 fl (7.4-10.4); Platelet Count 263 10x3/uL (150-450); Red Blood Cell (RBC) Count 4.04 10x6/uL (3.90-5.03); White Blood Cell (WBC) Count 6.1 10x3/uL (3.5-10.5)
[2022-10-18 22:09] LABS: ALT (SGPT) 19 U/L (8-55); AST (SGOT) 26 U/L (5-34); Albumin 4.1 g/dL (3.5-5.0); Alkaline Phosphatase 44 U/L (40-110); Anion Gap 13 mmol/L (10-20); BUN (Urea Nitrogen) 11 mg/dL (7.0-18.7); Bilirubin, Total 0.2 mg/dL (0.2-1.2); Calc. Creatinine Clearance 0 mL/min (70-130); Calcium 9.1 mg/dL (7.8-10.44); Carbon Dioxide 18 mmol/L (22-29); Chloride 108 mmol/L (98-107); Estimated GFR 115; Globulin 3.1 g/dL (2.4-3.5); Glucose 89 mg/dL (70-105); Potassium 3.1 mmol/L (3.5-5.1); Protein, Total 7.2 g/dL (6.0-8.3); Sodium 136 mmol/L (136-145)
[2022-10-18] MEDS ORDERED: Dexamethasone 10 MG/ML VIAL ONE (22:25)
[2022-10-18] MEDS ORDERED: Metoclopramide HCl 10 MG/2 ML VIAL ONE (22:25)
[2022-10-18] MEDS ORDERED: Morphine 4 MG/ML VIAL ONE (22:25)
[2022-10-18] MEDS ORDERED: Metoclopramide HCl 10 MG TAB ONE (22:53)
[2022-10-18 23:30] LABS: Anisocytosis SLIGHT = 6-15 cells (100X) (0-5/hpf); Microcytosis MODERATE=15-30 cells (100X) (0-5/hpf); Poikilocytosis SLIGHT = 6-15 cells (100X) (0-5/hpf)
[2022-10-18 23:31] LABS: Hypochromia MODERATE=16-30 cells (100X) (0-5/hpf); Schistocytes SLIGHT = 2-5 cells (100X) (0-1/hpf)
[2022-10-19] MEDS ORDERED: Promethazine HCl 25 MG SUPP PR SCH (00:45)
== END 2022-10-19 03:09 | disposition home or self-care (01) ==
LOC: CSHERS 20:01
DX: O20.0 Threatened abortion (principal); O99.611 Diseases of the digestive system complicating pregnancy, first trimester; K52.9 Noninfective gastroenteritis and colitis, unspecified; O99.891 Other specified diseases and conditions complicating pregnancy; G89.29 Other chronic pain; K21.9 Gastro-esophageal reflux disease without esophagitis; Z3A.01 Less than 8 weeks gestation of pregnancy
CPT/HCPCS: 36415; 76856; 80053; 84702; 85025; 96374; 96375; J1100; J2270; J2765

== ENCOUNTER 2022-10-20 12:27 | Inpatient (IN) | payer OTHER ==
[2022-10-20 13:09] LABS: #Eosinphils 0.1 10x3/uL (0.0-0.5); #Monocytes 0.2 10x3/uL (0.0-1.1); #Neutrophils 3.2 10x3/uL (1.5-8.4); %Basophils 0.5 % (0.0-2.0); %Lymphocytes 44.1 % (18.0-47.0); %Monocytes 3.3 % (0.0-10.0); %Neutrophils 50.9 % (40.0-75.0); Hemoglobin 8.8 g/dL (12.0-15.5); Mean Corpuscular HGB CONC 32.8 g/dL (32.0-36.0); Mean Corpuscular Hemoglobin 21.6 pg (27.0-33.0); Mean Corpuscular Volume 65.8 fl (81.6-98.3); Mean Platelet Volume 9.8 fl (7.4-10.4); Platelet Count 409 10x3/uL (150-450); RBC Distribution Width 18.9 % (11.5-14.5); Red Blood Cell (RBC) Count 4.07 10x6/uL (3.90-5.03); White Blood Cell (WBC) Count 6.3 10x3/uL (3.5-10.5)
[2022-10-20 13:25] LABS: Bilirubin Neg (Negative); Blood, Urine 50 (Negative); Clarity Cloudy (Clear); Glucose, Urine (Dipstick) Normal (Negative); Ketone, Urine Negative (Negative); Leukocyte 500 (Negative); Nitrite Negative (Negative); Protein, Urine (Dipstick) 30 mg/dl (Neg-Trace); Specific Gravity, Urine 1.015 (1.005-1.030); Urobilinogen Normal mg/dL (Less than 2)
[2022-10-20 13:32] LABS: ALT (SGPT) 16 U/L (8-55); AST (SGOT) 16 U/L (5-34); Albumin 4.4 g/dL (3.5-5.0); Alkaline Phosphatase 46 U/L (40-110); Anion Gap 15 mmol/L (10-20); Anisocytosis SLIGHT = 6-15 cells (100X) (0-5/hpf); BUN (Urea Nitrogen) 13 mg/dL (7.0-18.7); Bilirubin, Total 0.3 mg/dL (0.2-1.2); Calc. Creatinine Clearance 0 mL/min (70-130); Calcium 9.1 mg/dL (7.8-10.44); Carbon Dioxide 21 mmol/L (22-29); Chloride 107 mmol/L (98-107); Estimated GFR 88; Globulin 3.3 g/dL (2.4-3.5); Glucose 132 mg/dL (70-105); Hypochromia SLIGHT = 6-15 cells (100X) (0-5/hpf); Microcytosis SLIGHT = 6-15 cells (100X) (0-5/hpf); Ovalocytes SLIGHT = 2-5 cells (100X) (0-1/hpf); Platelet Morphology Comment Appears Adequate; Potassium 2.9 mmol/L (3.5-5.1); Protein, Total 7.7 g/dL (6.0-8.3); Sodium 140 mmol/L (136-145)
[2022-10-20 13:43] LABS: Bacteria/HPF 2+ HPF (None Seen); Epithelial Cast 0-3 LPF (None Seen); Squamous Epithelial 21-50 HPF (0-3); Trichomonas/HPF 2+ HPF (None Seen); WBC/HPF Greater than 50 HPF (0-3); White Blood Cell Cast 0-3 LPF (None Seen)
[2022-10-20] MEDS ORDERED: Potassium Chloride 20 MEQ TAB ONE (14:52)
[2022-10-20] MEDS ORDERED: Morphine 4 MG/ML VIAL ONE (14:52)
[2022-10-20] MEDS ORDERED: Promethazine HCl 25 MG/ML VIAL ONE (14:53)
[2022-10-20] MEDS ORDERED: metroNIDAZOLE 500 MG TAB ONE (15:47)
[2022-10-20] MEDS ORDERED: Calcium Carbonate 500 MG ChewTAB PO PRN (16:14)
[2022-10-20] MEDS ORDERED: Acetaminophen 325 MG TAB PO PRN ×2 (16:14→17:00)
[2022-10-20] MEDS ORDERED: Promethazine HCl 25 MG/ML VIAL IM PRN (16:17)
[2022-10-20 18:01] VITALS: BMI 20.2
[2022-10-20] MEDS ORDERED: Promethazine HCl 25 MG/ML VIAL IVPB PRN (20:26)
[2022-10-20] MEDS: metroNIDAZOLE 500 MG in Premix Bag 1 BAG IVPB SCH (20:36)
[2022-10-20] MEDS: Lactated Ringer's 1,000 ML IV SCH (20:37)
[2022-10-20] MEDS ORDERED: Acetaminophen 500 MG TAB PO PRN (20:45)
[2022-10-20] MEDS: Famotidine 20 MG TAB PO SCH (21:36)
[2022-10-20] MEDS: Famotidine/PF 20 mg/2ml Vial SLOW IVP SCH (21:36)
[2022-10-20] MEDS: Morphine 4 MG/ML VIAL SLOW IVP PRN (21:40)
[2022-10-20] MEDS: Promethazine HCl 12.5 MG in Sodium Chloride 0.9% 50 ML IVPB PRN (22:00)
[2022-10-21] MEDS: Morphine 4 MG/ML VIAL SLOW IVP PRN ×4 (02:23→22:20)
[2022-10-21] MEDS: Promethazine HCl 12.5 MG in Sodium Chloride 0.9% 50 ML IVPB PRN ×3 (04:21→17:07)
[2022-10-21] MEDS: Lactated Ringer's 1,000 ML IV SCH (04:26)
[2022-10-21] MEDS: metroNIDAZOLE 500 MG in Premix Bag 1 BAG IVPB SCH ×2 (08:20→22:30)
[2022-10-21] MEDS: Famotidine/PF 20 mg/2ml Vial SLOW IVP SCH (09:30)
[2022-10-21] MEDS: Prenatal Vitamin 1 TAB PO SCH (09:30)
[2022-10-21] MEDS: Famotidine 20 MG TAB PO SCH ×2 (09:31→22:20)
[2022-10-21] MEDS ORDERED: Potassium Chloride 20 MEQ in Premix Bag 1 BAG IVPB SCH (13:00)
[2022-10-21] MEDS: methylPREDNISolone Sod Succ 40 MG VIAL IVP SCH ×2 (13:49→22:20)
[2022-10-21] MEDS: Mesalamine DR 400 mg Capsule PO SCH ×2 (15:42→22:19)
[2022-10-21] MEDS: Potassium Chloride 20 MEQ in Lactated Ringer's 1,000 ML IV SCH (15:43)
[2022-10-21] MEDS: Promethazine 25 MG TAB PO PRN (22:20)
[2022-10-22] MEDS: Morphine 4 MG/ML VIAL SLOW IVP PRN ×5 (03:49→20:52)
[2022-10-22] MEDS: Promethazine 25 MG TAB PO PRN ×4 (04:29→22:22)
[2022-10-22 04:52] LABS: Anion Gap 12 mmol/L (10-20); BUN (Urea Nitrogen) 12 mg/dL (7.0-18.7); CRP (Inflammatory) Less than 0.50 mg/dL (= or < 0.5); Calc. Creatinine Clearance 85 mL/min (70-130); Calcium 9.7 mg/dL (7.8-10.44); Carbon Dioxide 22 mmol/L (22-29); Chloride 105 mmol/L (98-107); Estimated GFR 115; Glucose 130 mg/dL (70-105); Magnesium 1.7 mg/dL (1.6-2.6); Potassium 4.3 mmol/L (3.5-5.1); Sodium 135 mmol/L (136-145)
[2022-10-22 05:49] LABS: #Monocytes 0.1 10x3/uL (0.0-1.1); #Neutrophils 8.4 10x3/uL (1.5-8.4); %Basophils 0.1 % (0.0-2.0); %Lymphocytes 10.6 % (18.0-47.0); %Monocytes 0.8 % (0.0-10.0); Hemoglobin 8.5 g/dL (12.0-15.5); Mean Corpuscular Hemoglobin 21.2 pg (27.0-33.0); Mean Corpuscular Volume 66.3 fl (81.6-98.3); Mean Platelet Volume 10.8 fl (7.4-10.4); Platelet Count 354 10x3/uL (150-450); RBC Distribution Width 18.6 % (11.5-14.5); Red Blood Cell (RBC) Count 4.01 10x6/uL (3.90-5.03); White Blood Cell (WBC) Count 9.5 10x3/uL (3.5-10.5)
[2022-10-22 07:03] LABS: Elliptocytes SLIGHT = 2-5 cells (100X) (0-1/hpf); Hypochromia SLIGHT = 6-15 cells (100X) (0-5/hpf); Microcytosis SLIGHT = 6-15 cells (100X) (0-5/hpf); Ovalocytes SLIGHT = 2-5 cells (100X) (0-1/hpf); Poikilocytosis SLIGHT = 6-15 cells (100X) (0-5/hpf); Schistocytes SLIGHT = 2-5 cells (100X) (0-1/hpf)
[2022-10-22 07:04] LABS: Anisocytosis SLIGHT = 6-15 cells (100X) (0-5/hpf)
[2022-10-22 07:05] LABS: Platelet Morphology Comment Appears Adequate
[2022-10-22] MEDS: methylPREDNISolone Sod Succ 40 MG VIAL IVP SCH ×3 (07:23→20:52)
[2022-10-22] MEDS: Potassium Chloride 20 MEQ in Lactated Ringer's 1,000 ML IV SCH ×2 (07:47→10:16)
[2022-10-22] MEDS: metroNIDAZOLE 500 MG in Premix Bag 1 BAG IVPB SCH (07:47)
[2022-10-22] MEDS: Prenatal Vitamin 1 TAB PO SCH (07:48)
[2022-10-22] MEDS: Famotidine 20 MG TAB PO SCH ×2 (07:48→20:52)
[2022-10-22] MEDS: Mesalamine DR 400 mg Capsule PO SCH ×3 (07:48→20:52)
[2022-10-22] MEDS: Pantoprazole 40 MG VIAL IVP SCH (07:57)
[2022-10-22] MEDS ORDERED: Iron, Sodium Ferric Gluconate 250 MG in Sodium Chloride 0.9% 250 ML 250 ML IVPB SCH ×2 (10:00→10:30)
[2022-10-22 22:36] LABS: Campy jejuni + coli by PCR Negative (Negative); STEC Shiga Toxin 1+2 Negative (Negative); Salmonella spp. by PCR Negative (Negative); Shigella spp + EIEC by PCR Negative (Negative)
[2022-10-23] MEDS: Morphine 4 MG/ML VIAL SLOW IVP PRN ×6 (00:51→21:08)
[2022-10-23] MEDS: Potassium Chloride 20 MEQ in Lactated Ringer's 1,000 ML IV SCH ×2 (00:55→12:32)
[2022-10-23 04:43] LABS: Anion Gap 13 mmol/L (10-20); BUN (Urea Nitrogen) 10 mg/dL (7.0-18.7); Calc. Creatinine Clearance 82 mL/min (70-130); Calcium 8.9 mg/dL (7.8-10.44); Carbon Dioxide 20 mmol/L (22-29); Chloride 109 mmol/L (98-107); Estimated GFR 109; Glucose 165 mg/dL (70-105); Potassium 4.3 mmol/L (3.5-5.1); Sodium 138 mmol/L (136-145)
[2022-10-23] MEDS: methylPREDNISolone Sod Succ 40 MG VIAL IVP SCH ×3 (04:53→21:21)
[2022-10-23] MEDS: Promethazine 25 MG TAB PO PRN (04:53)
[2022-10-23] MEDS: Famotidine 20 MG TAB PO SCH ×2 (07:46→21:22)
[2022-10-23] MEDS: Mesalamine DR 400 mg Capsule PO SCH ×3 (07:46→21:21)
[2022-10-23] MEDS: LACTINEX 1 TAB PO SCH (07:46)
[2022-10-23] MEDS: Pantoprazole 40 MG VIAL IVP SCH (07:47)
[2022-10-23] MEDS: Prenatal Vitamin 1 TAB PO SCH (07:47)
[2022-10-23] MEDS: Promethazine HCl 25 MG in Sodium Chloride 0.9% 50 ML IVPB PRN ×3 (10:56→23:17)
[2022-10-23] MEDS ORDERED: metroNIDAZOLE 500 MG TAB PO SCH (11:30)
[2022-10-23] MEDS: metroNIDAZOLE 500 MG TAB PO SCH (21:22)
[2022-10-24] MEDS: Morphine 4 MG/ML VIAL SLOW IVP PRN ×2 (02:03→06:02)
[2022-10-24] MEDS: methylPREDNISolone Sod Succ 40 MG VIAL IVP SCH (06:02)
[2022-10-24] MEDS: Promethazine HCl 25 MG in Sodium Chloride 0.9% 50 ML IVPB PRN ×3 (06:03→17:32)
[2022-10-24] MEDS: Potassium Chloride 20 MEQ in Lactated Ringer's 1,000 ML IV SCH ×2 (06:04→17:34)
[2022-10-24] MEDS ORDERED: Dicyclomine 10 MG CAP PO PRN (09:40)
[2022-10-24] MEDS: Pantoprazole 40 MG VIAL IVP SCH (09:44)
[2022-10-24] MEDS: Famotidine 20 MG TAB PO SCH ×3 (09:45→22:09)
[2022-10-24] MEDS ORDERED: predniSONE 20 MG TAB PO SCH (10:00)
[2022-10-24] MEDS: Prenatal Vitamin 1 TAB PO SCH (10:14)
[2022-10-24] MEDS: metroNIDAZOLE 500 MG TAB PO SCH (10:15)
[2022-10-24 10:19] LABS: #Monocytes 0.8 10x3/uL (0.0-1.1); #Neutrophils 15.5 10x3/uL (1.5-8.4); %Basophils 0.1 % (0.0-2.0); %Monocytes 4.5 % (0.0-10.0); %Neutrophils 84.4 % (40.0-75.0); Hemoglobin 8.5 g/dL (12.0-15.5); Mean Corpuscular HGB CONC 32.3 g/dL (32.0-36.0); Mean Corpuscular Hemoglobin 21.4 pg (27.0-33.0); Mean Corpuscular Volume 66.2 fl (81.6-98.3); Mean Platelet Volume 10.7 fl (7.4-10.4); Platelet Count 472 10x3/uL (150-450); Red Blood Cell (RBC) Count 3.97 10x6/uL (3.90-5.03); White Blood Cell (WBC) Count 18.4 10x3/uL (3.5-10.5)
[2022-10-24 10:28] LABS: Anion Gap 12 mmol/L (10-20); BUN (Urea Nitrogen) 9 mg/dL (7.0-18.7); Calc. Creatinine Clearance 80 mL/min (70-130); Calcium 9.2 mg/dL (7.8-10.44); Carbon Dioxide 23 mmol/L (22-29); Chloride 107 mmol/L (98-107); Estimated GFR 106; Glucose 115 mg/dL (70-105); Potassium 3.9 mmol/L (3.5-5.1); Sodium 138 mmol/L (136-145)
[2022-10-24] MEDS ORDERED: Morphine 4 MG/ML VIAL ONE (10:52)
[2022-10-24] MEDS ORDERED: Morphine 4 MG/ML VIAL SLOW IVP SCH (11:00)
[2022-10-24] MEDS: Mesalamine DR 400 mg Capsule PO SCH ×4 (11:02→22:11)
[2022-10-24] MEDS: LACTINEX 1 TAB PO SCH (11:04)
[2022-10-24] MEDS ORDERED: Iopamidol 300 61% 100 ML VIAL FS ONE (11:25)
[2022-10-24] MEDS: HYDROcodone/Acetaminophen 10/325 mg Tablet PO PRN ×3 (11:48→16:11)
[2022-10-24] MEDS ORDERED: Morphine 4 MG/ML VIAL SLOW IVP PRN (15:00)
[2022-10-25] MEDS ORDERED: Cepastat Lozenges 1 LOZ PO PRN (00:02)
[2022-10-25] MEDS: Promethazine HCl 25 MG in Sodium Chloride 0.9% 50 ML IVPB PRN ×2 (00:13→08:40)
[2022-10-25] MEDS: HYDROcodone/Acetaminophen 10/325 mg Tablet PO PRN ×3 (00:14→08:37)
[2022-10-25] MEDS: Potassium Chloride 20 MEQ in Lactated Ringer's 1,000 ML IV SCH (00:15)
[2022-10-25 04:51] LABS: #Monocytes 1.7 10x3/uL (0.0-1.1); #Neutrophils 11.4 10x3/uL (1.5-8.4); %Basophils 0.1 % (0.0-2.0); %Eosinophils 0.1 % (0.0-6.0); %Monocytes 9.3 % (0.0-10.0); %Neutrophils 63.5 % (40.0-75.0); Hemoglobin 7.7 g/dL (12.0-15.5); Mean Corpuscular HGB CONC 32.1 g/dL (32.0-36.0); Mean Corpuscular Hemoglobin 21.3 pg (27.0-33.0); Mean Corpuscular Volume 66.3 fl (81.6-98.3); Mean Platelet Volume 9.9 fl (7.4-10.4); Platelet Count 413 10x3/uL (150-450); RBC Distribution Width 18.8 % (11.5-14.5); Red Blood Cell (RBC) Count 3.62 10x6/uL (3.90-5.03); White Blood Cell (WBC) Count 17.9 10x3/uL (3.5-10.5)
[2022-10-25 05:05] LABS: Anion Gap 11 mmol/L (10-20); BUN (Urea Nitrogen) 9 mg/dL (7.0-18.7); Calc. Creatinine Clearance 90 mL/min (70-130); Calcium 8.3 mg/dL (7.8-10.44); Carbon Dioxide 24 mmol/L (22-29); Chloride 106 mmol/L (98-107); Estimated GFR 121; Glucose 98 mg/dL (70-105); Potassium 3.3 mmol/L (3.5-5.1); Sodium 138 mmol/L (136-145)
[2022-10-25 05:10] LABS: Microcytosis MODERATE=15-30 cells (100X) (0-5/hpf)
[2022-10-25 05:11] LABS: Elliptocytes SLIGHT = 2-5 cells (100X) (0-1/hpf); Ovalocytes SLIGHT = 2-5 cells (100X) (0-1/hpf); Platelet Morphology Comment Appears Increased; Schistocytes SLIGHT = 2-5 cells (100X) (0-1/hpf)
[2022-10-25 07:49] VITALS: TEMP 99.1
[2022-10-25] MEDS ORDERED: predniSONE 20 MG TAB PO SCH (08:00)
[2022-10-25] MEDS: Pantoprazole 40 MG VIAL IVP SCH (08:31)
[2022-10-25] MEDS: Mesalamine DR 400 mg Capsule PO SCH (08:38)
[2022-10-25] MEDS: LACTINEX 1 TAB PO SCH (08:38)
[2022-10-25] MEDS: Prenatal Vitamin 1 TAB PO SCH (08:38)
[2022-10-25] MEDS: Famotidine 20 MG TAB PO SCH (08:38)
[2022-10-25 11:31] VITALS: BP 130/78
== END 2022-10-25 12:10 | disposition home or self-care (01) | DRG 832 ==
LOC: CSHERS 12:27 → CSHPP 17:53 → OBSVTOIN 10-23 07:17
PROVIDERS: ADMIT Obstetrics & Gynecology; ATTEND Family Medicine
DX: O02.0 Blighted ovum and nonhydatidiform mole (principal); A04.72 Enterocolitis due to Clostridium difficile, not specified as recurrent; K51.90 Ulcerative colitis, unspecified, without complications; O98.311 Other infections with a predominantly sexual mode of transmission complicating pregnancy, first trimester; O99.611 Diseases of the digestive system complicating pregnancy, first trimester; O99.281 Endocrine, nutritional and metabolic diseases complicating pregnancy, first trimester; O99.341 Other mental disorders complicating pregnancy, first trimester; O99.011 Anemia complicating pregnancy, first trimester; E86.0 Dehydration; E87.6 Hypokalemia; K21.9 Gastro-esophageal reflux disease without esophagitis; F41.9 Anxiety disorder, unspecified; A59.00 Urogenital trichomoniasis, unspecified; Z3A.01 Less than 8 weeks gestation of pregnancy; F32.A Depression, unspecified; D64.9 Anemia, unspecified; Z88.1 Allergy status to other antibiotic agents; Z88.0 Allergy status to penicillin; Z88.2 Allergy status to sulfonamides; Z88.8 Allergy status to other drugs, medicaments and biological substances; Z82.49 Family history of ischemic heart disease and other diseases of the circulatory system; Z98.890 Other specified postprocedural states
CPT/HCPCS: 36415; 74177; 76856; 80048; 80053; 81003; 81015; 83605; 83630; 83735; 84100; 84702; 85025; 85652; 86140; 87324; 87449; 87493; 87505; 87798; 96365; 96366; 96367; 96375; 96376; C9113; G0378; J2270; J2550; J2916; J2920; J3480; J7050; J7120; J7512; Q0169; Q9967; S0028

== ENCOUNTER 2022-10-29 19:51 | Emergency (ER) | payer OTHER ==
[2022-10-29] MEDS ORDERED: Promethazine HCl 25 MG/ML VIAL ONE (21:25)
[2022-10-29] MEDS ORDERED: Morphine 4 MG/ML VIAL ONE (21:25)
[2022-10-29 21:39] LABS: Bilirubin Neg (Negative); Blood, Urine Negative (Negative); Clarity Clear (Clear); Glucose, Urine (Dipstick) Normal (Negative); Ketone, Urine Negative (Negative); Leukocyte Negative (Negative); Nitrite Negative (Negative); Protein, Urine (Dipstick) Negative (Neg-Trace); Specific Gravity, Urine 1.015 (1.005-1.030); Urobilinogen Normal mg/dL (Less than 2)
[2022-10-29 21:54] LABS: #Monocytes 0.7 10x3/uL (0.0-1.1); %Basophils 0.2 % (0.0-2.0); %Eosinophils 0.1 % (0.0-6.0); %Lymphocytes 18.7 % (18.0-47.0); %Neutrophils 73.7 % (40.0-75.0); Hemoglobin 8.8 g/dL (12.0-15.5); Mean Corpuscular HGB CONC 32.7 g/dL (32.0-36.0); Mean Corpuscular Hemoglobin 21.7 pg (27.0-33.0); Mean Corpuscular Volume 66.4 fl (81.6-98.3); Mean Platelet Volume 9.8 fl (7.4-10.4); Platelet Count 403 10x3/uL (150-450); RBC Distribution Width 19.6 % (11.5-14.5); Red Blood Cell (RBC) Count 4.05 10x6/uL (3.90-5.03); White Blood Cell (WBC) Count 16.3 10x3/uL (3.5-10.5)
[2022-10-29 22:03] LABS: ALT (SGPT) 45 U/L (8-55); AST (SGOT) 34 U/L (5-34); Albumin 4.1 g/dL (3.5-5.0); Alkaline Phosphatase 43 U/L (40-110); Anion Gap 14 mmol/L (10-20); BUN (Urea Nitrogen) 12 mg/dL (7.0-18.7); Bilirubin, Total 0.1 mg/dL (0.2-1.2); Calc. Creatinine Clearance 0 mL/min (70-130); Calcium 9.4 mg/dL (7.8-10.44); Carbon Dioxide 21 mmol/L (22-29); Chloride 105 mmol/L (98-107); Estimated GFR 121; Globulin 2.9 g/dL (2.4-3.5); Glucose 93 mg/dL (70-105); Lipase 55 U/L (8-78); Potassium 4.3 mmol/L (3.5-5.1); Sodium 136 mmol/L (136-145)
[2022-10-29] MEDS ORDERED: Famotidine/PF 20 mg/2ml Vial ONE (22:07)
[2022-10-29] MEDS ORDERED: HYDROmorphone 0.5 MG/0.5 ML SYRINGE ONE (23:21)
[2022-10-30] LABS: Anisocytosis SLIGHT = 6-15 cells (100X) (0-5/hpf); Elliptocytes SLIGHT = 2-5 cells (100X) (0-1/hpf); Schistocytes SLIGHT = 2-5 cells (100X) (0-1/hpf)
[2022-10-30] MEDS ORDERED: Promethazine HCl 25 MG/ML VIAL IM PRN (02:21)
[2022-10-30] MEDS ORDERED: HYDROmorphone 0.5 MG/0.5 ML SYRINGE SLOW IVP SCH (02:30)
== END 2022-10-30 00:31 | disposition short-term general hospital (02) ==
LOC: CSHERS 19:51
DX: O99.611 Diseases of the digestive system complicating pregnancy, first trimester (principal); K51.90 Ulcerative colitis, unspecified, without complications; Z3A.01 Less than 8 weeks gestation of pregnancy; K21.9 Gastro-esophageal reflux disease without esophagitis
CPT/HCPCS: 36415; 80053; 81003; 83690; 84702; 85025; 96361; 96365; 96375; J1170; J2270; J2550; S0028

== ENCOUNTER 2022-11-03 01:02 | Emergency (ER) | payer OTHER ==
[2022-11-03] MEDS ORDERED: Promethazine HCl 25 MG/ML VIAL ONE ×2 (04:20→11:01)
[2022-11-03 05:19] LABS: Hemoglobin 8.2 g/dL (12.0-15.5); MDiff Complete? YES; Mean Corpuscular HGB CONC 32.4 g/dL (32.0-36.0); Mean Corpuscular Hemoglobin 21.4 pg (27.0-33.0); Mean Corpuscular Volume 66.1 fl (81.6-98.3); Mean Platelet Volume 10.1 fl (7.4-10.4); Platelet Count 456 10x3/uL (150-450); RBC Distribution Width 19.4 % (11.5-14.5); Red Blood Cell (RBC) Count 3.83 10x6/uL (3.90-5.03); White Blood Cell (WBC) Count 27.8 10x3/uL (3.5-10.5)
[2022-11-03] MEDS ORDERED: Morphine 4 MG/ML VIAL ONE (05:24)
[2022-11-03 05:28] LABS: ALT (SGPT) 74 U/L (8-55); AST (SGOT) 46 U/L (5-34); Alkaline Phosphatase 41 U/L (40-110); Anion Gap 15 mmol/L (10-20); BUN (Urea Nitrogen) 17 mg/dL (7.0-18.7); Bilirubin, Total 0.2 mg/dL (0.2-1.2); CK (CPK) 156 U/L (29-168); Calc. Creatinine Clearance 0 mL/min (70-130); Calcium 8.8 mg/dL (7.8-10.44); Carbon Dioxide 22 mmol/L (22-29); Chloride 104 mmol/L (98-107); Estimated GFR 108; Globulin 2.6 g/dL (2.4-3.5); Glucose 91 mg/dL (70-105); Lipase 58 U/L (8-78); Potassium 3.6 mmol/L (3.5-5.1); Protein, Total 6.6 g/dL (6.0-8.3); Sodium 137 mmol/L (136-145)
[2022-11-03] MEDS ORDERED: Metoclopramide HCl 10 MG/2 ML VIAL ONE (07:48)
[2022-11-03 07:54] LABS: Band 1 % (5-11); Lymphocytes 13 % (21-51); Monocytes 4 % (0-10); Neutrophil 82 % (42-75)
[2022-11-03 08:04] LABS: Ovalocytes SLIGHT = 2-5 cells (100X) (0-1/hpf)
[2022-11-03 08:05] LABS: Helmet Cells SLIGHT = 2-5 cells (100X) (0-1/hpf); Microcytosis MODERATE=15-30 cells (100X) (0-5/hpf); Schistocytes SLIGHT = 2-5 cells (100X) (0-1/hpf)
[2022-11-03 08:06] LABS: Anisocytosis SLIGHT = 6-15 cells (100X) (0-5/hpf)
[2022-11-03 08:07] LABS: Platelet Morphology Comment Appears Increased
[2022-11-03 08:08] LABS: Hypochromia SLIGHT = 6-15 cells (100X) (0-5/hpf)
[2022-11-03 08:15] LABS: Bilirubin Neg (Negative); Blood, Urine Negative (Negative); Clarity Clear (Clear); Glucose, Urine (Dipstick) Normal (Negative); Ketone, Urine Negative (Negative); Leukocyte Negative (Negative); Nitrite Negative (Negative); Protein, Urine (Dipstick) Negative (Neg-Trace); Specific Gravity, Urine 1.005 (1.005-1.030); Urobilinogen Normal mg/dL (Less than 2); pH, Urine 6.5 (5.0-9.0)
[2022-11-03] MEDS ORDERED: HYDROcodone/Acetaminophen 5/325 mg Tablet ONE (11:02)
== END 2022-11-03 11:57 | disposition home or self-care (01) ==
LOC: CSHERS 01:02
DX: O26.891 Other specified pregnancy related conditions, first trimester (principal); O99.611 Diseases of the digestive system complicating pregnancy, first trimester; K21.9 Gastro-esophageal reflux disease without esophagitis; Z79.899 Other long term (current) drug therapy; Z3A.01 Less than 8 weeks gestation of pregnancy
CPT/HCPCS: 76856; 80053; 81003; 82550; 83690; 84702; 85025; J2270; J2550; J2765

== ENCOUNTER 2022-11-03 21:24 | Inpatient (IN) | payer OTHER ==
[2022-11-03 22:43] LABS: ALT (SGPT) 68 U/L (8-55); AST (SGOT) 42 U/L (5-34); Albumin 3.6 g/dL (3.5-5.0); Alkaline Phosphatase 39 U/L (40-110); Anion Gap 14 mmol/L (10-20); BUN (Urea Nitrogen) 21 mg/dL (7.0-18.7); Bilirubin, Total 0.2 mg/dL (0.2-1.2); CK (CPK) 724 U/L (29-168); Calc. Creatinine Clearance 0 mL/min (70-130); Calcium 8.3 mg/dL (7.8-10.44); Carbon Dioxide 22 mmol/L (22-29); Chloride 104 mmol/L (98-107); Estimated GFR 103; Globulin 2.5 g/dL (2.4-3.5); Glucose 103 mg/dL (70-105); Protein, Total 6.1 g/dL (6.0-8.3); Sodium 137 mmol/L (136-145)
[2022-11-03 22:44] LABS: Mean Corpuscular HGB CONC 32.4 g/dL (32.0-36.0); Mean Corpuscular Hemoglobin 21.6 pg (27.0-33.0); Mean Corpuscular Volume 66.8 fl (81.6-98.3); Mean Platelet Volume 8.8 fl (7.4-10.4); Platelet Count 382 10x3/uL (150-450); RBC Distribution Width 19.3 % (11.5-14.5); White Blood Cell (WBC) Count 16.4 10x3/uL (3.5-10.5)
[2022-11-03 22:54] LABS: MDiff Complete? YES
[2022-11-03 23:13] LABS: Amphetamine Not Detected (NotDetected); Barbiturates Screen Not Detected (NotDetected); Benzodiazepine Screen Not Detected (NotDetected); Cocaine Metabolite Screen Not Detected (NotDetected); Methadone Not Detected (NotDetected); Methamphetamine Not Detected (NotDetected); Opiate Screen Detected (NotDetected); Oxycodone Screen Not Detected (NotDetected); Phencyclidine (PCP) Not Detected (NotDetected); THC/Cannabinoid Screen Not Detected (NotDetected); Tricyclic Screen Not Detected (NotDetected)
[2022-11-03] MEDS ORDERED: Morphine 4 MG/ML VIAL ONE (23:56)
[2022-11-04 01:00] LABS: Lymphocytes 21 % (21-51); Monocytes 11 % (0-10); Neutrophil 68 % (42-75)
[2022-11-04 01:07] LABS: Anisocytosis SLIGHT = 6-15 cells (100X) (0-5/hpf); Elliptocytes SLIGHT = 2-5 cells (100X) (0-1/hpf); Hypochromia SLIGHT = 6-15 cells (100X) (0-5/hpf); Microcytosis SLIGHT = 6-15 cells (100X) (0-5/hpf); Poikilocytosis SLIGHT = 6-15 cells (100X) (0-5/hpf); Schistocytes SLIGHT = 2-5 cells (100X) (0-1/hpf)
[2022-11-04 01:08] LABS: Platelet Morphology Comment Appears Adequate
[2022-11-04] MEDS ORDERED: Senokot S 8.6-50 MG TAB PO PRN (01:49)
[2022-11-04] MEDS ORDERED: Acetaminophen 325 MG TAB PO PRN (01:49)
[2022-11-04] MEDS ORDERED: Metoclopramide HCl 10 MG/2 ML VIAL IVP PRN (01:52)
[2022-11-04] MEDS ORDERED: Famotidine/PF 20 mg/2ml Vial SLOW IVP SCH (02:00)
[2022-11-04] MEDS ORDERED: Potassium Chloride 20 MEQ TAB PO SCH ×2 (02:00→09:00)
[2022-11-04] MEDS ORDERED: Lactated Ringer's 500 ML IV SCH (02:00)
[2022-11-04] MEDS ORDERED: Ketorolac Tromethamine 30 MG/ML VIAL IVP SCH (02:00)
[2022-11-04] MEDS ORDERED: Promethazine HCl 25 MG/ML VIAL ONE ×2 (02:02→10:02)
[2022-11-04] MEDS ORDERED: Ketorolac Tromethamine 30 MG/ML VIAL ONE (02:02)
[2022-11-04] MEDS ORDERED: Dicyclomine 10 MG CAP PO PRN (02:03)
[2022-11-04] MEDS: Promethazine HCl 12.5 MG in Sodium Chloride 0.9% 50 ML IVPB PRN ×4 (02:32→22:10)
[2022-11-04] MEDS ORDERED: Potassium Chloride 20 MEQ TAB ONE ×3 (02:35→12:05)
[2022-11-04] MEDS ORDERED: Famotidine/PF 20 mg/2ml Vial ONE ×2 (02:35→07:53)
[2022-11-04 02:37] LABS: Hemoglobin 7.6 g/dL (12.0-15.5); MDiff Complete? YES; Mean Corpuscular HGB CONC 32.2 g/dL (32.0-36.0); Mean Corpuscular Hemoglobin 21.6 pg (27.0-33.0); Platelet Count 379 10x3/uL (150-450); RBC Distribution Width 19.5 % (11.5-14.5); Red Blood Cell (RBC) Count 3.52 10x6/uL (3.90-5.03); White Blood Cell (WBC) Count 16.1 10x3/uL (3.5-10.5)
[2022-11-04 02:54] LABS: ALT (SGPT) 54 U/L (8-55); AST (SGOT) 37 U/L (5-34); Albumin 3.3 g/dL (3.5-5.0); Alkaline Phosphatase 35 U/L (40-110); Anion Gap 15 mmol/L (10-20); BUN (Urea Nitrogen) 18 mg/dL (7.0-18.7); Bilirubin, Total 0.2 mg/dL (0.2-1.2); Calc. Creatinine Clearance 0 mL/min (70-130); Calcium 8.2 mg/dL (7.8-10.44); Carbon Dioxide 19 mmol/L (22-29); Chloride 108 mmol/L (98-107); Estimated GFR 113; Globulin 2.3 g/dL (2.4-3.5); Glucose 92 mg/dL (70-105); Potassium 3.2 mmol/L (3.5-5.1); Protein, Total 5.6 g/dL (6.0-8.3); Sodium 139 mmol/L (136-145)
[2022-11-04 02:55] LABS: SARS-CoV-2 NAA Rapid Test Not Detected (NotDetected)
[2022-11-04] MEDS: Lactated Ringer's 1,000 ML IV SCH ×3 (02:56→20:09)
[2022-11-04] MEDS ORDERED: Vancomycin HCl 125 MG/5 ML (BATCHED) UDCUP PO SCH (03:00)
[2022-11-04 03:08] LABS: CK (CPK) 645 U/L (29-168); CRP (Inflammatory) Less than 0.50 mg/dL (= or < 0.5)
[2022-11-04] MEDS ORDERED: Morphine 4 MG/ML VIAL ONE ×2 (04:09→10:02)
[2022-11-04] MEDS ORDERED: Levofloxacin 500 mg/D5W 100 ml Premix Bag ONE (04:10)
[2022-11-04] MEDS: Morphine 4 MG/ML VIAL SLOW IVP PRN ×4 (04:20→22:10)
[2022-11-04] MEDS ORDERED: metroNIDAZOLE 500 MG/100 ML BAG ONE (04:56)
[2022-11-04 05:01] LABS: Band 1 % (5-11); Lymphocytes 27 % (21-51); Monocytes 5 % (0-10); Neutrophil 67 % (42-75)
[2022-11-04 05:04] LABS: Anisocytosis SLIGHT = 6-15 cells (100X) (0-5/hpf); Elliptocytes SLIGHT = 2-5 cells (100X) (0-1/hpf); Hypochromia SLIGHT = 6-15 cells (100X) (0-5/hpf); Microcytosis SLIGHT = 6-15 cells (100X) (0-5/hpf); Platelet Morphology Comment Appears Adequate; Poikilocytosis SLIGHT = 6-15 cells (100X) (0-5/hpf); Schistocytes SLIGHT = 2-5 cells (100X) (0-1/hpf)
[2022-11-04] MEDS: Vancomycin HCl 125 MG/5 ML (BATCHED) UDCUP PO SCH ×3 (05:20→17:44)
[2022-11-04] MEDS: metroNIDAZOLE 500 MG in Premix Bag 1 BAG IVPB SCH ×3 (05:54→21:52)
[2022-11-04 06:18] LABS: Mean Platelet Volume 9.2 fl (7.4-10.4)
[2022-11-04] MEDS ORDERED: Enoxaparin Sodium 40 MG/0.4 ML SYRINGE ONE (07:53)
[2022-11-04] MEDS ORDERED: predniSONE 20 MG TAB ONE (07:53)
[2022-11-04] MEDS: Enoxaparin Sodium 40 MG/0.4 ML SYRINGE SC SCH (08:06)
[2022-11-04] MEDS: predniSONE 20 MG TAB PO SCH (08:06)
[2022-11-04] MEDS: Mesalamine DR 400 mg Capsule PO SCH ×3 (08:07→21:52)
[2022-11-04] MEDS: Famotidine/PF 20 mg/2ml Vial SLOW IVP SCH ×2 (08:07→21:52)
[2022-11-04 08:20] LABS: Magnesium 1.9 mg/dL (1.6-2.6)
[2022-11-04 15:20] VITALS: BMI 20.1
[2022-11-05] MEDS: Vancomycin HCl 125 MG/5 ML (BATCHED) UDCUP PO SCH ×5 (00:40→23:57)
[2022-11-05] MEDS ORDERED: Levofloxacin 500 mg/D5W 100 ml Premix Bag ONE (02:59)
[2022-11-05] MEDS: HYDROcodone/Acetaminophen 5/325 mg Tablet PO PRN (03:03)
[2022-11-05] MEDS: Morphine 4 MG/ML VIAL SLOW IVP PRN ×4 (04:53→23:57)
[2022-11-05] MEDS: Lactated Ringer's 1,000 ML IV SCH (04:53)
[2022-11-05 04:56] LABS: Anion Gap 16 mmol/L (10-20); BUN (Urea Nitrogen) 12 mg/dL (7.0-18.7); Calc. Creatinine Clearance 87 mL/min (70-130); Calcium 8.4 mg/dL (7.8-10.44); Carbon Dioxide 20 mmol/L (22-29); Chloride 104 mmol/L (98-107); Estimated GFR 119; Glucose 97 mg/dL (70-105); Potassium 3.6 mmol/L (3.5-5.1); Sodium 136 mmol/L (136-145)
[2022-11-05 04:57] LABS: #Eosinphils 0.1 10x3/uL (0.0-0.5); #Monocytes 0.9 10x3/uL (0.0-1.1); #Neutrophils 12.3 10x3/uL (1.5-8.4); %Basophils 0.1 % (0.0-2.0); %Eosinophils 0.3 % (0.0-6.0); %Lymphocytes 21.8 % (18.0-47.0); %Neutrophils 70.6 % (40.0-75.0); Hemoglobin 7.5 g/dL (12.0-15.5); Mean Corpuscular HGB CONC 32.6 g/dL (32.0-36.0); Mean Corpuscular Hemoglobin 21.7 pg (27.0-33.0); Mean Corpuscular Volume 66.5 fl (81.6-98.3); Mean Platelet Volume 10.9 fl (7.4-10.4); Platelet Count 388 10x3/uL (150-450); RBC Distribution Width 19.8 % (11.5-14.5); Red Blood Cell (RBC) Count 3.46 10x6/uL (3.90-5.03); White Blood Cell (WBC) Count 17.4 10x3/uL (3.5-10.5)
[2022-11-05 06:10] LABS: Hypochromia SLIGHT = 6-15 cells (100X) (0-5/hpf); Microcytosis SLIGHT = 6-15 cells (100X) (0-5/hpf)
[2022-11-05] MEDS: metroNIDAZOLE 500 MG in Premix Bag 1 BAG IVPB SCH ×3 (06:14→22:53)
[2022-11-05] MEDS: Ferrous Sulfate 325 MG TAB PO SCH (09:53)
[2022-11-05] MEDS: Enoxaparin Sodium 40 MG/0.4 ML SYRINGE SC SCH (09:53)
[2022-11-05] MEDS: Mesalamine DR 400 mg Capsule PO SCH ×3 (09:54→20:30)
[2022-11-05] MEDS: Famotidine/PF 20 mg/2ml Vial SLOW IVP SCH ×2 (09:55→20:29)
[2022-11-05] MEDS: predniSONE 20 MG TAB PO SCH (09:55)
[2022-11-05] MEDS: cefTRIAXone\\ROCEPHIN 1 GM in Sodium Chloride 0.9% 100 ML IVPB SCH (10:11)
[2022-11-05] MEDS: Promethazine HCl 12.5 MG in Sodium Chloride 0.9% 50 ML IVPB PRN ×2 (10:32→23:58)
[2022-11-05 13:19] LABS: Bilirubin Neg (Negative); Blood, Urine Negative (Negative); CAUTI Indications for Culture Pregnancy; Clarity Clear (Clear); Glucose, Urine (Dipstick) Normal (Negative); Ketone, Urine Negative (Negative); Leukocyte Negative (Negative); Nitrite Negative (Negative); Protein, Urine (Dipstick) Negative (Neg-Trace); Specific Gravity, Urine 1.005 (1.005-1.030); Urobilinogen Normal mg/dL (Less than 2)
[2022-11-05 13:22] LABS: Urine Culture Reflex Yes Yes
[2022-11-05 13:26] LABS: Bacteria/HPF Rare-Few HPF (None Seen); RBC/HPF None Seen HPF (0-3); Squamous Epithelial 0-3 HPF (0-3); WBC/HPF 0-3 HPF (0-3)
[2022-11-06 05:40] LABS: Anion Gap 14 mmol/L (10-20); BUN (Urea Nitrogen) 9 mg/dL (7.0-18.7); Calc. Creatinine Clearance 92 mL/min (70-130); Calcium 8.5 mg/dL (7.8-10.44); Carbon Dioxide 24 mmol/L (22-29); Chloride 103 mmol/L (98-107); Estimated GFR 122; Glucose 88 mg/dL (70-105); Potassium 3.6 mmol/L (3.5-5.1); Sodium 137 mmol/L (136-145)
[2022-11-06 06:08] LABS: Hemoglobin 7.7 g/dL (12.0-15.5); MDiff Complete? YES; Mean Corpuscular HGB CONC 32.1 g/dL (32.0-36.0); Mean Corpuscular Hemoglobin 21.6 pg (27.0-33.0); Mean Corpuscular Volume 67.4 fl (81.6-98.3); Mean Platelet Volume 10.2 fl (7.4-10.4); Platelet Count 372 10x3/uL (150-450); RBC Distribution Width 20.2 % (11.5-14.5); Red Blood Cell (RBC) Count 3.56 10x6/uL (3.90-5.03); White Blood Cell (WBC) Count 18.8 10x3/uL (3.5-10.5)
[2022-11-06] MEDS: Lactated Ringer's 1,000 ML IV SCH ×3 (06:09→21:31)
[2022-11-06] MEDS: metroNIDAZOLE 500 MG in Premix Bag 1 BAG IVPB SCH ×3 (06:10→22:24)
[2022-11-06] MEDS: Vancomycin HCl 125 MG/5 ML (BATCHED) UDCUP PO SCH ×4 (06:10→23:21)
[2022-11-06 06:59] LABS: Eosinophils 2 % (0-10); Lymphocytes 30 % (21-51); Neutrophil 68 % (42-75)
[2022-11-06 07:00] LABS: Anisocytosis SLIGHT = 6-15 cells (100X) (0-5/hpf); Elliptocytes SLIGHT = 2-5 cells (100X) (0-1/hpf); Hypochromia SLIGHT = 6-15 cells (100X) (0-5/hpf); Macrocytosis SLIGHT = 6-15 cells (100X) (0-5/hpf); Microcytosis SLIGHT = 6-15 cells (100X) (0-5/hpf); Poikilocytosis SLIGHT = 6-15 cells (100X) (0-5/hpf); Schistocytes SLIGHT = 2-5 cells (100X) (0-1/hpf)
[2022-11-06 07:01] LABS: Basophilic Stippling SLIGHT = 1-2 cells (100X) (None Seen); Platelet Morphology Comment Appears Adequate
[2022-11-06] MEDS ORDERED: Iopamidol 300 61% 100 ML VIAL FS ONE (09:49)
[2022-11-06] MEDS: Famotidine/PF 20 mg/2ml Vial SLOW IVP SCH ×2 (09:52→21:31)
[2022-11-06] MEDS: Enoxaparin Sodium 40 MG/0.4 ML SYRINGE SC SCH (09:52)
[2022-11-06] MEDS: Ferrous Sulfate 325 MG TAB PO SCH (09:52)
[2022-11-06] MEDS: Mesalamine DR 400 mg Capsule PO SCH ×3 (09:52→21:31)
[2022-11-06] MEDS: predniSONE 20 MG TAB PO SCH (09:52)
[2022-11-06] MEDS: cefTRIAXone\\ROCEPHIN 1 GM in Sodium Chloride 0.9% 100 ML IVPB SCH (09:56)
[2022-11-06] MEDS: Morphine 4 MG/ML VIAL SLOW IVP PRN ×2 (12:35→18:20)
[2022-11-06] MEDS: Promethazine HCl 12.5 MG in Sodium Chloride 0.9% 50 ML IVPB PRN (12:35)
[2022-11-06] MEDS ORDERED: Loratadine 10 MG TAB PO SCH (12:45)
[2022-11-06] MEDS ORDERED: Promethazine HCl 12.5 MG in Sodium Chloride 0.9% 50 ML IVPB SCH (20:45)
[2022-11-07] MEDS: Promethazine HCl 12.5 MG in Sodium Chloride 0.9% 50 ML IVPB PRN ×3 (01:21→21:20)
[2022-11-07] MEDS: Morphine 4 MG/ML VIAL SLOW IVP PRN ×4 (01:23→20:57)
[2022-11-07] MEDS: Lactated Ringer's 1,000 ML IV SCH ×3 (05:35→21:24)
[2022-11-07] MEDS: metroNIDAZOLE 500 MG in Premix Bag 1 BAG IVPB SCH ×3 (05:44→22:16)
[2022-11-07] MEDS: Vancomycin HCl 125 MG/5 ML (BATCHED) UDCUP PO SCH ×4 (06:22→23:56)
[2022-11-07] MEDS: Enoxaparin Sodium 40 MG/0.4 ML SYRINGE SC SCH (08:48)
[2022-11-07] MEDS: Ferrous Sulfate 325 MG TAB PO SCH (08:48)
[2022-11-07] MEDS: predniSONE 20 MG TAB PO SCH (08:48)
[2022-11-07] MEDS: cefTRIAXone\\ROCEPHIN 1 GM in Sodium Chloride 0.9% 100 ML IVPB SCH (08:48)
[2022-11-07] MEDS: Famotidine/PF 20 mg/2ml Vial SLOW IVP SCH ×2 (08:48→20:52)
[2022-11-07] MEDS: Mesalamine DR 400 mg Capsule PO SCH ×3 (08:49→20:51)
[2022-11-07] MEDS ORDERED: Cetirizine HCl 5 MG/5 ML UDCUP PO SCH (09:00)
[2022-11-07] MEDS ORDERED: Loratadine 10 MG TAB PO SCH (09:00)
[2022-11-07] MEDS: HYDROcodone/Acetaminophen 5/325 mg Tablet PO PRN ×2 (12:30→18:01)
[2022-11-07] MEDS ORDERED: FLU VACC QS2022-23(6MOS UP)/PF 60 MCG/0.5 ML SYRINGE IM ONE (16:45)
[2022-11-08] MEDS: Morphine 4 MG/ML VIAL SLOW IVP PRN ×3 (02:50→17:04)
[2022-11-08 05:19] LABS: #Eosinphils 0.1 10x3/uL (0.0-0.5); #Neutrophils 12.2 10x3/uL (1.5-8.4); %Basophils 0.2 % (0.0-2.0); %Eosinophils 0.4 % (0.0-6.0); %Lymphocytes 24.1 % (18.0-47.0); %Monocytes 5.5 % (0.0-10.0); %Neutrophils 65.8 % (40.0-75.0); Hemoglobin 7.3 g/dL (12.0-15.5); Mean Corpuscular HGB CONC 32.2 g/dL (32.0-36.0); Mean Corpuscular Hemoglobin 21.7 pg (27.0-33.0); Mean Corpuscular Volume 67.6 fl (81.6-98.3); Mean Platelet Volume 9.9 fl (7.4-10.4); Platelet Count 353 10x3/uL (150-450); RBC Distribution Width 20.5 % (11.5-14.5); Red Blood Cell (RBC) Count 3.36 10x6/uL (3.90-5.03); White Blood Cell (WBC) Count 18.6 10x3/uL (3.5-10.5)
[2022-11-08 05:46] LABS: Anion Gap 14 mmol/L (10-20); BUN (Urea Nitrogen) 12 mg/dL (7.0-18.7); Calc. Creatinine Clearance 92 mL/min (70-130); Calcium 8.6 mg/dL (7.8-10.44); Carbon Dioxide 22 mmol/L (22-29); Chloride 103 mmol/L (98-107); Estimated GFR 122; Glucose 85 mg/dL (70-105); Sodium 135 mmol/L (136-145)
[2022-11-08] MEDS: metroNIDAZOLE 500 MG in Premix Bag 1 BAG IVPB SCH ×2 (05:51→13:03)
[2022-11-08] MEDS: Vancomycin HCl 125 MG/5 ML (BATCHED) UDCUP PO SCH ×3 (05:51→17:05)
[2022-11-08] MEDS: Lactated Ringer's 1,000 ML IV SCH ×2 (06:10→13:03)
[2022-11-08] MEDS: Famotidine/PF 20 mg/2ml Vial SLOW IVP SCH (08:25)
[2022-11-08] MEDS: Enoxaparin Sodium 40 MG/0.4 ML SYRINGE SC SCH (08:25)
[2022-11-08] MEDS: HYDROcodone/Acetaminophen 5/325 mg Tablet PO PRN ×2 (08:25→12:53)
[2022-11-08] MEDS: predniSONE 20 MG TAB PO SCH (08:25)
[2022-11-08] MEDS: cefTRIAXone\\ROCEPHIN 1 GM in Sodium Chloride 0.9% 100 ML IVPB SCH (08:26)
[2022-11-08] MEDS: Mesalamine DR 400 mg Capsule PO SCH ×2 (08:26→14:14)
[2022-11-08] MEDS: Ferrous Sulfate 325 MG TAB PO SCH (08:26)
[2022-11-08] MEDS: Promethazine HCl 12.5 MG in Sodium Chloride 0.9% 50 ML IVPB PRN (12:52)
[2022-11-08 16:46] VITALS: BP 107/56; TEMP 98.8
== END 2022-11-08 20:53 | disposition home or self-care (01) | DRG 832 ==
LOC: CSHERS 21:24 → INTOOBSV 11-04 02:19 → CSHERHOLD 11-04 02:19 → CSHTELE 11-04 13:29 → OBSVTOIN 11-05 11:27
PROVIDERS: ADMIT Student in an Organized Health Care Education/Training Program; ATTEND Family Medicine
DX: O02.0 Blighted ovum and nonhydatidiform mole (principal); A04.72 Enterocolitis due to Clostridium difficile, not specified as recurrent; R65.10 Systemic inflammatory response syndrome (SIRS) of non-infectious origin without acute organ dysfunction; E87.6 Hypokalemia; R07.89 Other chest pain; R74.01 Elevation of levels of liver transaminase levels; Z23 Encounter for immunization; K92.89 Other specified diseases of the digestive system; R79.89 Other specified abnormal findings of blood chemistry; D50.9 Iron deficiency anemia, unspecified; F41.9 Anxiety disorder, unspecified; F32.A Depression, unspecified; Z88.1 Allergy status to other antibiotic agents; Z87.19 Personal history of other diseases of the digestive system; Z98.890 Other specified postprocedural states; Z79.899 Other long term (current) drug therapy; Z88.2 Allergy status to sulfonamides; Z88.0 Allergy status to penicillin; Z88.8 Allergy status to other drugs, medicaments and biological substances; Z82.49 Family history of ischemic heart disease and other diseases of the circulatory system
CPT/HCPCS: 36415; 74177; 76856; 80048; 80053; 80306; 81001; 81003; 82550; 83605; 83690; 83735; 84145; 84702; 85025; 85652; 86140; 86850; 86900; 86901; 87086; 90471; 90686; 93005; 96361; 96365; 96372; 96374; 96375; 96376; G0008; G0378; J0696; J1650; J1885; J1956; J2270; J2550; J2765; J3490; J7120; J7512; Q9967; S0028

== ENCOUNTER 2022-11-15 02:48 | Emergency (ER) | payer OTHER | END 2022-11-15 03:06 | disposition home or self-care (01) | LOC: CSHERS 02:48 | DX: O99.891 Other specified diseases and conditions complicating pregnancy (principal); R10.30 Lower abdominal pain, unspecified; G89.29 Other chronic pain; Z3A.01 Less than 8 weeks gestation of pregnancy | CPT/HCPCS: 99281 ==

== ENCOUNTER 2022-12-05 11:29 | Emergency (ER) | payer OTHER ==
[2022-12-05 11:53] LABS: Bilirubin Neg (Negative); Blood, Urine 250 (Negative); Clarity Cloudy (Clear); Glucose, Urine (Dipstick) Normal (Negative); Ketone, Urine Negative (Negative); Leukocyte 100 (Negative); Nitrite Negative (Negative); Protein, Urine (Dipstick) 30 mg/dl (Neg-Trace); Specific Gravity, Urine 1.015 (1.005-1.030); Urobilinogen Normal mg/dL (Less than 2)
[2022-12-05 12:01] LABS: RBC/HPF Greater than 50 HPF (0-3); WBC/HPF 0-3 HPF (0-3)
[2022-12-05 12:02] LABS: Bacteria/HPF Rare-Few HPF (None Seen)
[2022-12-05 12:04] LABS: #Monocytes 0.4 10x3/uL (0.0-1.1); #Neutrophils 2.5 10x3/uL (1.5-8.4); %Basophils 0.2 % (0.0-2.0); %Eosinophils 0.8 % (0.0-6.0); %Lymphocytes 43.5 % (18.0-47.0); %Neutrophils 48.3 % (40.0-75.0); Hemoglobin 9.9 g/dL (12.0-15.5); Mean Corpuscular HGB CONC 31.5 g/dL (32.0-36.0); Mean Corpuscular Hemoglobin 21.5 pg (27.0-33.0); Mean Corpuscular Volume 68.3 fl (81.6-98.3); Mean Platelet Volume 9.1 fl (7.4-10.4); Platelet Count 439 10x3/uL (150-450); RBC Distribution Width 17.7 % (11.5-14.5); White Blood Cell (WBC) Count 5.1 10x3/uL (3.5-10.5)
[2022-12-05 12:19] LABS: ALT (SGPT) 8 U/L (8-55); AST (SGOT) 18 U/L (5-34); Albumin 4.4 g/dL (3.5-5.0); Alkaline Phosphatase 44 U/L (40-110); Anion Gap 12 mmol/L (10-20); BUN (Urea Nitrogen) 11 mg/dL (7.0-18.7); Bilirubin, Total 0.3 mg/dL (0.2-1.2); Calc. Creatinine Clearance 0 mL/min (70-130); Calcium 9.5 mg/dL (7.8-10.44); Carbon Dioxide 21 mmol/L (22-29); Chloride 108 mmol/L (98-107); Estimated GFR 113; Globulin 3.6 g/dL (2.4-3.5); Glucose 92 mg/dL (70-105); Lipase 30 U/L (8-78); Potassium 3.4 mmol/L (3.5-5.1); Sodium 138 mmol/L (136-145)
[2022-12-05] MEDS ORDERED: Methylergonovine 0.2 MG/ML VIAL ONE (15:23)
== END 2022-12-05 15:40 | disposition home or self-care (01) ==
LOC: CSHERS 11:29
DX: O03.4 Incomplete spontaneous abortion without complication (principal)
CPT/HCPCS: 36415; 76856; 80053; 81003; 81015; 83690; 84702; 85025; 86900; 86901; 96372; J2210

== ENCOUNTER 2022-12-09 04:22 | Emergency (ER) | payer OTHER ==
[2022-12-09 05:33] LABS: #Eosinphils 0.1 10x3/uL (0.0-0.5); #Monocytes 0.7 10x3/uL (0.0-1.1); #Neutrophils 3.5 10x3/uL (1.5-8.4); %Basophils 0.3 % (0.0-2.0); %Eosinophils 1.4 % (0.0-6.0); %Lymphocytes 35.4 % (18.0-47.0); %Monocytes 10.1 % (0.0-10.0); %Neutrophils 52.6 % (40.0-75.0); Hemoglobin 9.8 g/dL (12.0-15.5); Mean Corpuscular HGB CONC 31.5 g/dL (32.0-36.0); Mean Corpuscular Hemoglobin 21.3 pg (27.0-33.0); Mean Corpuscular Volume 67.6 fl (81.6-98.3); Platelet Count 428 10x3/uL (150-450); RBC Distribution Width 17.2 % (11.5-14.5); White Blood Cell (WBC) Count 6.6 10x3/uL (3.5-10.5)
[2022-12-09] MEDS ORDERED: Ketorolac Tromethamine 30 MG/ML VIAL ONE (06:14)
[2022-12-09] MEDS ORDERED: Methylergonovine 0.2 MG/ML VIAL ONE (06:17)
[2022-12-09 08:17] LABS: Anisocytosis SLIGHT = 6-15 cells (100X) (0-5/hpf); Elliptocytes SLIGHT = 2-5 cells (100X) (0-1/hpf); Hypochromia SLIGHT = 6-15 cells (100X) (0-5/hpf); Microcytosis MODERATE=15-30 cells (100X) (0-5/hpf); Ovalocytes SLIGHT = 2-5 cells (100X) (0-1/hpf); Poikilocytosis SLIGHT = 6-15 cells (100X) (0-5/hpf); Schistocytes SLIGHT = 2-5 cells (100X) (0-1/hpf)
[2022-12-09 08:19] LABS: Platelet Morphology Comment Appears Adequate
== END 2022-12-09 09:23 | disposition home or self-care (01) ==
LOC: CSHERS 04:22
DX: N93.9 Abnormal uterine and vaginal bleeding, unspecified (principal); K21.9 Gastro-esophageal reflux disease without esophagitis
CPT/HCPCS: 36415; 76856; 84702; 85025; 96372; J1885; J2210

== ENCOUNTER 2022-12-15 10:33 | Emergency (ER) | payer OTHER ==
[2022-12-15] MEDS ORDERED: Metoclopramide HCl 10 MG/2 ML VIAL ONE (12:07)
[2022-12-15 12:34] LABS: Hemoglobin 10.5 g/dL (12.0-15.5); Mean Corpuscular HGB CONC 31.1 g/dL (32.0-36.0); Mean Corpuscular Hemoglobin 21.5 pg (27.0-33.0); Mean Corpuscular Volume 69.3 fl (81.6-98.3); Mean Platelet Volume 9.6 fl (7.4-10.4); Platelet Count 425 10x3/uL (150-450); RBC Distribution Width 17.2 % (11.5-14.5); Red Blood Cell (RBC) Count 4.88 10x6/uL (3.90-5.03); White Blood Cell (WBC) Count 8.5 10x3/uL (3.5-10.5)
[2022-12-15 12:44] LABS: ALT (SGPT) 14 U/L (8-55); AST (SGOT) 29 U/L (5-34); Albumin 4.2 g/dL (3.5-5.0); Alkaline Phosphatase 63 U/L (40-110); Anion Gap 16 mmol/L (10-20); BUN (Urea Nitrogen) 13 mg/dL (7.0-18.7); Bilirubin, Total 0.2 mg/dL (0.2-1.2); Calc. Creatinine Clearance 0 mL/min (70-130); Calcium 9.5 mg/dL (7.8-10.44); Carbon Dioxide 23 mmol/L (22-29); Chloride 103 mmol/L (98-107); Estimated GFR 88; Glucose 86 mg/dL (70-105); Potassium 3.5 mmol/L (3.5-5.1); Protein, Total 8.2 g/dL (6.0-8.3); Sodium 138 mmol/L (136-145)
[2022-12-15 12:57] LABS: MDiff Complete? YES; Manual Diff?? YES
[2022-12-15 13:04] LABS: Band 6 % (5-11); Eosinophils 1 % (0-10); Lymphocytes 53 % (21-51); Monocytes 12 % (0-10); Neutrophil 25 % (42-75); Reactive Lymphocytes 3 % (0-10)
[2022-12-15 13:05] LABS: Platelet Morphology Comment Appears Adequate
[2022-12-15 13:07] LABS: Anisocytosis SLIGHT = 6-15 cells (100X) (0-5/hpf); Elliptocytes SLIGHT = 2-5 cells (100X) (0-1/hpf); Hypochromia SLIGHT = 6-15 cells (100X) (0-5/hpf); Macrocytosis SLIGHT = 6-15 cells (100X) (0-5/hpf); Microcytosis SLIGHT = 6-15 cells (100X) (0-5/hpf); Polychromasia SLIGHT = 2-3 cells (100X) (0-2/hpf); Schistocytes SLIGHT = 2-5 cells (100X) (0-1/hpf); Target Cells SLIGHT = 2-5 cells (100X) (0-1/hpf)
[2022-12-15 13:08] LABS: Tear Drops SLIGHT = 2-5 cells (100X) (0-1/hpf)
[2022-12-15] MEDS ORDERED: Ketorolac Tromethamine 30 MG/ML VIAL ONE (13:40)
[2022-12-15 13:46] LABS: PTT 24.5 sec (22.0-33.0); Prothrombin Time 10.9 sec (9.5-12.1)
== END 2022-12-15 14:24 | disposition home or self-care (01) ==
LOC: CSHERS 10:33
DX: O99.611 Diseases of the digestive system complicating pregnancy, first trimester (principal); K51.90 Ulcerative colitis, unspecified, without complications
CPT/HCPCS: 80053; 84702; 85025; 85610; 85730; 96374; 96375; J1885; J2765

== ENCOUNTER 2023-01-09 12:41 | Emergency (ER) | payer OTHER ==
[2023-01-09] MEDS ORDERED: Ketorolac Tromethamine 30 MG/ML VIAL ONE (13:17)
[2023-01-09] MEDS ORDERED: Promethazine HCl 25 MG/ML VIAL ONE (13:18)
[2023-01-09 13:23] LABS: Hemoglobin 8.8 g/dL (12.0-15.5); Mean Corpuscular Hemoglobin 21.6 pg (27.0-33.0); Mean Corpuscular Volume 67.6 fl (81.6-98.3); Mean Platelet Volume 10.1 fl (7.4-10.4); Platelet Count 444 10x3/uL (150-450); Red Blood Cell (RBC) Count 4.07 10x6/uL (3.90-5.03); White Blood Cell (WBC) Count 14.1 10x3/uL (3.5-10.5)
[2023-01-09 13:34] LABS: ALT (SGPT) 93 U/L (8-55); AST (SGOT) 52 U/L (5-34); Albumin 3.6 g/dL (3.5-5.0); Alkaline Phosphatase 47 U/L (40-110); Anion Gap 15 mmol/L (10-20); BUN (Urea Nitrogen) 11 mg/dL (7.0-18.7); Bilirubin, Total 0.2 mg/dL (0.2-1.2); Calc. Creatinine Clearance 0 mL/min (70-130); Calcium 8.9 mg/dL (7.8-10.44); Carbon Dioxide 28 mmol/L (22-29); Chloride 101 mmol/L (98-107); Estimated GFR 106; Globulin 2.9 g/dL (2.4-3.5); Glucose 122 mg/dL (70-105); Lipase 65 U/L (8-78); Potassium 3.5 mmol/L (3.5-5.1); Protein, Total 6.5 g/dL (6.0-8.3); Sodium 140 mmol/L (136-145)
[2023-01-09 13:39] LABS: BHCG - Serum Negative (NEGATIVE); Pregs Control Background? CLEAR/WHITE (CLR/WHITE); Pregs Control Bar Appear? YES (CONTROL BAR)
[2023-01-09 13:40] LABS: Bilirubin Neg (Negative); Blood, Urine 250 (Negative); Clarity Cloudy (Clear); Glucose, Urine (Dipstick) Normal (Negative); Ketone, Urine Negative (Negative); Leukocyte 25 (Negative); Nitrite Negative (Negative); Protein, Urine (Dipstick) 30 mg/dl (Neg-Trace); Urobilinogen Normal mg/dL (Less than 2)
[2023-01-09 13:47] LABS: RBC/HPF Greater than 50 HPF (0-3)
[2023-01-09 13:48] LABS: Bacteria/HPF None Seen HPF (None Seen); Squamous Epithelial 0-3 HPF (0-3); WBC/HPF 0-3 HPF (0-3)
[2023-01-09] MEDS ORDERED: Morphine 4 MG/ML VIAL ONE ×2 (13:54→14:54)
[2023-01-09 13:55] LABS: Band 12 % (5-11); Eosinophils 1 % (0-10); Myelocyte 3 % (0-0)
[2023-01-09 13:59] LABS: Lymphocytes 16 % (21-51); Metamyelocyte 3 % (0-0); Reactive Lymphocytes 4 % (0-10)
[2023-01-09 14:01] LABS: Neutrophil 57 % (42-75)
[2023-01-09 14:03] LABS: Monocytes 4 % (0-10)
[2023-01-09 14:08] LABS: Anisocytosis MODERATE=16-30 cells (100X) (0-5/hpf)
[2023-01-09 14:09] LABS: Microcytosis MODERATE=15-30 cells (100X) (0-5/hpf)
[2023-01-09 14:10] LABS: Elliptocytes SLIGHT = 2-5 cells (100X) (0-1/hpf); Helmet Cells SLIGHT = 2-5 cells (100X) (0-1/hpf); Poikilocytosis SLIGHT = 6-15 cells (100X) (0-5/hpf); Polychromasia SLIGHT = 2-3 cells (100X) (0-2/hpf)
[2023-01-09 14:11] LABS: Hypochromia SLIGHT = 6-15 cells (100X) (0-5/hpf)
[2023-01-09 14:15] LABS: Burr Cells SLIGHT = 2-5 cells (100X) (0-1/hpf); Ovalocytes MODERATE= 6-15 cells (100X) (0-1/hpf); Tear Drops SLIGHT = 2-5 cells (100X) (0-1/hpf)
[2023-01-09 14:16] LABS: Platelet Morphology Comment Appears Increased
[2023-01-09 14:17] LABS: Large Platelets SLIGHT; MDiff Complete? YES
[2023-01-09 16:24] LABS: Lactic Acid 4.1 mmol/L (0.5-2.2)
== END 2023-01-09 16:35 | disposition home or self-care (01) ==
LOC: CSHERS 12:41
DX: K51.90 Ulcerative colitis, unspecified, without complications (principal); K21.9 Gastro-esophageal reflux disease without esophagitis; D64.9 Anemia, unspecified; I31.9 Disease of pericardium, unspecified
CPT/HCPCS: 36415; 80053; 81003; 81015; 83605; 83690; 84703; 85025; 96374; 96375; 96376; J1885; J2270; J2550

== ENCOUNTER 2023-01-23 16:10 | Emergency (ER) | payer OTHER ==
[2023-01-23 16:55] LABS: Hemoglobin 9.7 g/dL (12.0-15.5); Mean Corpuscular HGB CONC 30.8 g/dL (32.0-36.0); Mean Corpuscular Hemoglobin 21.6 pg (27.0-33.0); Mean Platelet Volume 9.9 fl (7.4-10.4); Platelet Count 353 10x3/uL (150-450); RBC Distribution Width 23.6 % (11.5-14.5); White Blood Cell (WBC) Count 16.3 10x3/uL (3.5-10.5)
[2023-01-23] MEDS ORDERED: Ondansetron PF 4 MG/2 ML Vial ONE (17:03)
[2023-01-23 17:10] LABS: ALT (SGPT) 43 U/L (8-55); AST (SGOT) 18 U/L (5-34); Alkaline Phosphatase 39 U/L (40-110); Anion Gap 19 mmol/L (10-20); BUN (Urea Nitrogen) 26 mg/dL (7.0-18.7); Bilirubin, Total 0.2 mg/dL (0.2-1.2); Calc. Creatinine Clearance 0 mL/min (70-130); Calcium 8.7 mg/dL (7.8-10.44); Carbon Dioxide 21 mmol/L (22-29); Chloride 103 mmol/L (98-107); Estimated GFR 89; Globulin 2.9 g/dL (2.4-3.5); Glucose 146 mg/dL (70-105); Lipase 70 U/L (8-78); Potassium 4.1 mmol/L (3.5-5.1); Protein, Total 6.9 g/dL (6.0-8.3); Sodium 139 mmol/L (136-145)
[2023-01-23 17:23] LABS: BHCG - Serum Negative (NEGATIVE); Lymphocytes 12 % (21-51); MDiff Complete? YES; Monocytes 2 % (0-10); Myelocyte 9 % (0-0); Neutrophil 74 % (42-75); Nucleated RBC 4 % (0); Pregs Control Background? CLEAR/WHITE (CLR/WHITE); Pregs Control Bar Appear? YES (CONTROL BAR)
[2023-01-23 17:25] LABS: Anisocytosis MODERATE=16-30 cells (100X) (0-5/hpf); Microcytosis MODERATE=15-30 cells (100X) (0-5/hpf); Poikilocytosis SLIGHT = 6-15 cells (100X) (0-5/hpf); Reflex for Review?? YES
[2023-01-23 17:26] LABS: Hypochromia SLIGHT = 6-15 cells (100X) (0-5/hpf); Polychromasia SLIGHT = 2-3 cells (100X) (0-2/hpf)
[2023-01-23 17:27] LABS: Elliptocytes SLIGHT = 2-5 cells (100X) (0-1/hpf); Ovalocytes SLIGHT = 2-5 cells (100X) (0-1/hpf); Platelet Morphology Comment Appears Adequate; Schistocytes MODERATE= 6-15 cells (100X) (0-1/hpf); Tear Drops SLIGHT = 2-5 cells (100X) (0-1/hpf)
[2023-01-23 18:19] LABS: Bilirubin Neg (Negative); Blood, Urine Negative (Negative); Clarity Clear (Clear); Glucose, Urine (Dipstick) Normal (Negative); Ketone, Urine Negative (Negative); Leukocyte Negative (Negative); Nitrite Negative (Negative); Protein, Urine (Dipstick) Negative (Neg-Trace); Urobilinogen Normal mg/dL (Less than 2)
[2023-01-23 20:28] LABS: Lactic Acid 3.9 mmol/L (0.5-2.2)
== END 2023-01-23 20:48 | disposition home or self-care (01) ==
LOC: CSHERS 16:10
DX: K51.90 Ulcerative colitis, unspecified, without complications (principal); K21.9 Gastro-esophageal reflux disease without esophagitis; D64.9 Anemia, unspecified
CPT/HCPCS: 36415; 74177; 80053; 81003; 83605; 83690; 84703; 85025; 85060; J2405

== ENCOUNTER 2023-01-24 14:08 | Emergency (ER) | payer OTHER ==
[2023-01-24] MEDS ORDERED: Cefepime 2 GM VIAL ONE (15:03)
[2023-01-24] MEDS ORDERED: Morphine 4 MG/ML VIAL ONE (15:03)
[2023-01-24] MEDS ORDERED: Ondansetron PF 4 MG/2 ML Vial ONE (15:03)
[2023-01-24] MEDS ORDERED: Promethazine HCl 25 MG/ML VIAL ONE (15:17)
[2023-01-24 15:35] LABS: Hemoglobin 11.1 g/dL (12.0-15.5); Mean Corpuscular HGB CONC 31.4 g/dL (32.0-36.0); Mean Corpuscular Hemoglobin 21.5 pg (27.0-33.0); Mean Corpuscular Volume 68.6 fl (81.6-98.3); Platelet Count 414 10x3/uL (150-450); Red Blood Cell (RBC) Count 5.16 10x6/uL (3.90-5.03); White Blood Cell (WBC) Count 15.9 10x3/uL (3.5-10.5)
[2023-01-24 15:36] LABS: MDiff Complete? YES; Manual Diff?? YES
[2023-01-24 15:42] LABS: Bilirubin Neg (Negative); Blood, Urine Negative (Negative); Glucose, Urine (Dipstick) Normal (Negative); Ketone, Urine Negative (Negative); Leukocyte Negative (Negative); Nitrite Negative (Negative); Protein, Urine (Dipstick) Negative (Neg-Trace); Specific Gravity, Urine 1.015 (1.005-1.030); Urobilinogen Normal mg/dL (Less than 2)
[2023-01-24 15:43] LABS: Clarity Clear (Clear)
[2023-01-24 16:00] LABS: ALT (SGPT) 40 U/L (8-55); AST (SGOT) 23 U/L (5-34); Albumin 4.1 g/dL (3.5-5.0); Alkaline Phosphatase 46 U/L (40-110); Anion Gap 20 mmol/L (10-20); BUN (Urea Nitrogen) 21 mg/dL (7.0-18.7); Bilirubin, Total 0.3 mg/dL (0.2-1.2); Calc. Creatinine Clearance 0 mL/min (70-130); Calcium 8.6 mg/dL (7.8-10.44); Carbon Dioxide 22 mmol/L (22-29); Chloride 100 mmol/L (98-107); Estimated GFR 95; Glucose 99 mg/dL (70-105); Potassium 3.8 mmol/L (3.5-5.1); Protein, Total 7.1 g/dL (6.0-8.3); Sodium 138 mmol/L (136-145)
[2023-01-24 16:57] LABS: Lymphocytes 37 % (21-51); Monocytes 3 % (0-10); Myelocyte 6 % (0-0); Neutrophil 54 % (42-75); Nucleated RBC 2 % (0)
[2023-01-24 16:59] LABS: Anisocytosis MODERATE=16-30 cells (100X) (0-5/hpf); Microcytosis MODERATE=15-30 cells (100X) (0-5/hpf); Poikilocytosis MODERATE=16-30 cells (100X) (0-5/hpf); Polychromasia SLIGHT = 2-3 cells (100X) (0-2/hpf)
[2023-01-24 17:00] LABS: Elliptocytes SLIGHT = 2-5 cells (100X) (0-1/hpf); Ovalocytes MODERATE= 6-15 cells (100X) (0-1/hpf); Schistocytes MODERATE= 6-15 cells (100X) (0-1/hpf); Tear Drops SLIGHT = 2-5 cells (100X) (0-1/hpf)
[2023-01-24 17:01] LABS: Platelet Morphology Comment Appears Adequate
== END 2023-01-24 18:10 | disposition home or self-care (01) ==
LOC: CSHERS 14:08
DX: K63.89 Other specified diseases of intestine (principal); E86.0 Dehydration; K21.9 Gastro-esophageal reflux disease without esophagitis; D64.9 Anemia, unspecified
CPT/HCPCS: 36415; 71045; 74177; 80053; 81003; 83605; 83690; 84703; 85025; 85060; 87040; 93005; 93010; 96360; 96365; 96366; 96367; 96375; J0692; J2270; J2405; J2550

== ENCOUNTER 2023-02-01 11:39 | Emergency (ER) | payer OTHER ==
[2023-02-01 12:23] LABS: #Basophils 0.1 10x3/uL (0.0-0.2); #Monocytes 0.5 10x3/uL (0.0-1.1); #Neutrophils 4.3 10x3/uL (1.5-8.4); %Basophils 0.6 % (0.0-2.0); %Eosinophils 0.3 % (0.0-6.0); %Lymphocytes 42.6 % (18.0-47.0); %Neutrophils 47.7 % (40.0-75.0); Hemoglobin 10.4 g/dL (12.0-15.5); Mean Corpuscular HGB CONC 30.5 g/dL (32.0-36.0); Mean Corpuscular Hemoglobin 21.9 pg (27.0-33.0); Mean Corpuscular Volume 71.8 fl (81.6-98.3); Platelet Count 218 10x3/uL (150-450); RBC Distribution Width 23.4 % (11.5-14.5); Red Blood Cell (RBC) Count 4.75 10x6/uL (3.90-5.03); White Blood Cell (WBC) Count 9.1 10x3/uL (3.5-10.5)
[2023-02-01] MEDS ORDERED: Morphine 4 MG/ML VIAL ONE ×3 (12:25→13:32)
[2023-02-01] MEDS ORDERED: Ondansetron PF 4 MG/2 ML Vial ONE (12:26)
[2023-02-01 12:48] LABS: Anion Gap 16 mmol/L (10-20); BUN (Urea Nitrogen) 21 mg/dL (7.0-18.7); Calc. Creatinine Clearance 0 mL/min (70-130); Carbon Dioxide 20 mmol/L (22-29); Chloride 107 mmol/L (98-107); Estimated GFR 104; Glucose 86 mg/dL (70-105); Lipase 83 U/L (8-78); Magnesium 1.9 mg/dL (1.6-2.6); Potassium 3.6 mmol/L (3.5-5.1); Sodium 139 mmol/L (136-145)
[2023-02-01] MEDS ORDERED: Promethazine 25 MG TAB ONE (13:35)
[2023-02-01 13:48] LABS: BHCG - Serum Negative (NEGATIVE); Pregs Control Background? CLEAR/WHITE (CLR/WHITE); Pregs Control Bar Appear? YES (CONTROL BAR)
[2023-02-01] MEDS ORDERED: HYDROcodone/Acetaminophen 5/325 mg Tablet ONE (15:31)
== END 2023-02-01 15:35 | disposition home or self-care (01) ==
LOC: CSHERS 11:39
DX: R10.30 Lower abdominal pain, unspecified (principal); K21.9 Gastro-esophageal reflux disease without esophagitis
CPT/HCPCS: 36415; 80048; 83690; 83735; 84703; 85025; J2270; J2405; Q0169

== ENCOUNTER 2023-02-02 02:36 | Emergency (ER) | payer OTHER ==
[2023-02-02] MEDS ORDERED: Ketorolac Tromethamine 30 MG/ML VIAL ONE (03:20)
[2023-02-02 04:07] LABS: #Monocytes 0.5 10x3/uL (0.0-1.1); #Neutrophils 3.4 10x3/uL (1.5-8.4); %Basophils 0.3 % (0.0-2.0); %Eosinophils 0.3 % (0.0-6.0); %Lymphocytes 43.8 % (18.0-47.0); %Monocytes 6.8 % (0.0-10.0); %Neutrophils 44.9 % (40.0-75.0); Hemoglobin 8.7 g/dL (12.0-15.5); Mean Corpuscular HGB CONC 30.4 g/dL (32.0-36.0); Mean Corpuscular Hemoglobin 21.9 pg (27.0-33.0); Mean Corpuscular Volume 71.9 fl (81.6-98.3); Mean Platelet Volume 9.9 fl (7.4-10.4); Platelet Count 264 10x3/uL (150-450); Red Blood Cell (RBC) Count 3.98 10x6/uL (3.90-5.03); White Blood Cell (WBC) Count 7.4 10x3/uL (3.5-10.5)
[2023-02-02 04:09] LABS: ALT (SGPT) 31 U/L (8-55); AST (SGOT) 25 U/L (5-34); Albumin 3.5 g/dL (3.5-5.0); Alkaline Phosphatase 39 U/L (40-110); Anion Gap 13 mmol/L (10-20); BHCG - Serum Negative (NEGATIVE); BUN (Urea Nitrogen) 12 mg/dL (7.0-18.7); Bilirubin, Total 0.1 mg/dL (0.2-1.2); Calc. Creatinine Clearance 0 mL/min (70-130); Calcium 8.4 mg/dL (7.8-10.44); Carbon Dioxide 20 mmol/L (22-29); Chloride 112 mmol/L (98-107); Estimated GFR 120; Globulin 2.5 g/dL (2.4-3.5); Glucose 86 mg/dL (70-105); Lipase 101 U/L (8-78); Potassium 3.9 mmol/L (3.5-5.1); Pregs Control Background? CLEAR/WHITE (CLR/WHITE); Pregs Control Bar Appear? YES (CONTROL BAR); Sodium 141 mmol/L (136-145)
[2023-02-02] MEDS ORDERED: Morphine 4 MG/ML VIAL ONE (05:11)
== END 2023-02-02 05:27 | disposition home or self-care (01) ==
LOC: CSHERS 02:36
DX: K51.90 Ulcerative colitis, unspecified, without complications (principal); D64.9 Anemia, unspecified
CPT/HCPCS: 80053; 83690; 84703; 85025; 96372; 99284; J1885; J2270

== ENCOUNTER 2023-02-09 13:47 | Emergency (ER) | payer OTHER ==
[2023-02-09 14:32] LABS: ALT (SGPT) 14 U/L (8-55); AST (SGOT) 16 U/L (5-34); Albumin 4.2 g/dL (3.5-5.0); Alkaline Phosphatase 48 U/L (40-110); Anion Gap 12 mmol/L (10-20); BUN (Urea Nitrogen) 11 mg/dL (7.0-18.7); Bilirubin, Total 0.3 mg/dL (0.2-1.2); Calc. Creatinine Clearance 0 mL/min (70-130); Calcium 9.7 mg/dL (7.8-10.44); Carbon Dioxide 25 mmol/L (22-29); Chloride 106 mmol/L (98-107); Estimated GFR 94; Glucose 96 mg/dL (70-105); Lipase 36 U/L (8-78); Potassium 3.2 mmol/L (3.5-5.1); Protein, Total 7.2 g/dL (6.0-8.3); Sodium 140 mmol/L (136-145)
[2023-02-09 14:52] LABS: Bilirubin Neg (Negative); Blood, Urine 10 (Negative); Clarity Slightly Cloudy (Clear); Glucose, Urine (Dipstick) Normal (Negative); Ketone, Urine Negative (Negative); Leukocyte 500 (Negative); Nitrite Negative (Negative); Protein, Urine (Dipstick) 15 mg/dl (Neg-Trace); Specific Gravity, Urine 1.025 (1.005-1.030); Urobilinogen Normal mg/dL (Less than 2)
[2023-02-09 14:58] LABS: Pregnancy Test - Urine (BHCG) Negative (Negative); Pregu Control Background? CLEAR/WHITE (CLR/WHITE); Pregu Control Bar Appear? YES (CONTROL BAR); Specific Gravity 1.025 (1.002-1.036)
[2023-02-09 15:15] LABS: Mean Corpuscular HGB CONC 30.5 g/dL (32.0-36.0); Mean Corpuscular Hemoglobin 21.6 pg (27.0-33.0); Mean Corpuscular Volume 70.9 fl (81.6-98.3); Mean Platelet Volume 10.1 fl (7.4-10.4); Platelet Count 345 10x3/uL (150-450); RBC Distribution Width 20.8 % (11.5-14.5); Red Blood Cell (RBC) Count 4.16 10x6/uL (3.90-5.03)
[2023-02-09] MEDS ORDERED: Promethazine 25 MG TAB ONE (15:29)
[2023-02-09 15:33] LABS: MDiff Complete? YES; Manual Diff?? YES
[2023-02-09 15:48] LABS: Eosinophils 1 % (0-10); Lymphocytes 44 % (21-51); Monocytes 8 % (0-10); Neutrophil 37 % (42-75); Reactive Lymphocytes 10 % (0-10)
[2023-02-09 15:51] LABS: Microcytosis SLIGHT = 6-15 cells (100X) (0-5/hpf); Poikilocytosis SLIGHT = 6-15 cells (100X) (0-5/hpf); Reflex for Review?? YES
[2023-02-09 15:52] LABS: Hypochromia SLIGHT = 6-15 cells (100X) (0-5/hpf)
[2023-02-09 15:53] LABS: Elliptocytes SLIGHT = 2-5 cells (100X) (0-1/hpf)
[2023-02-09 15:54] LABS: Platelet Clumps SLIGHT
[2023-02-09] MEDS ORDERED: Ketorolac Tromethamine 30 MG/ML VIAL ONE (16:11)
[2023-02-09 16:18] LABS: Bacteria/HPF Rare-Few HPF (None Seen); Squamous Epithelial 0-3 HPF (0-3); WBC/HPF 21-50 HPF (0-3)
== END 2023-02-09 16:23 | disposition home or self-care (01) ==
LOC: CSHERS 13:47
DX: N39.0 Urinary tract infection, site not specified (principal); R10.9 Unspecified abdominal pain; K21.9 Gastro-esophageal reflux disease without esophagitis
CPT/HCPCS: 80053; 81003; 81015; 81025; 83690; 85025; 85060; 87086; 96372; 99284; J1885; Q0169

== ENCOUNTER 2023-03-01 09:20 | Emergency (ER) | payer OTHER ==
[2023-03-01 10:14] LABS: #Monocytes 0.4 10x3/uL (0.0-1.1); #Neutrophils 2.5 10x3/uL (1.5-8.4); %Basophils 0.3 % (0.0-2.0); %Eosinophils 0.5 % (0.0-6.0); %Lymphocytes 49.3 % (18.0-47.0); %Monocytes 6.1 % (0.0-10.0); %Neutrophils 43.6 % (40.0-75.0); Hemoglobin 10.9 g/dL (12.0-15.5); Mean Corpuscular HGB CONC 30.5 g/dL (32.0-36.0); Mean Corpuscular Hemoglobin 21.4 pg (27.0-33.0); Mean Platelet Volume 9.4 fl (7.4-10.4); Platelet Count 344 10x3/uL (150-450); RBC Distribution Width 18.6 % (11.5-14.5); White Blood Cell (WBC) Count 5.7 10x3/uL (3.5-10.5)
[2023-03-01] MEDS ORDERED: Ketorolac Tromethamine 30 MG/ML VIAL ONE (10:17)
[2023-03-01 10:23] LABS: ALT (SGPT) 12 U/L (8-55); AST (SGOT) 35 U/L (5-34); Albumin 4.6 g/dL (3.5-5.0); Alkaline Phosphatase 48 U/L (40-110); Anion Gap 17 mmol/L (10-20); BUN (Urea Nitrogen) 14 mg/dL (7.0-18.7); Bilirubin, Total 0.4 mg/dL (0.2-1.2); Calc. Creatinine Clearance 0 mL/min (70-130); Calcium 9.1 mg/dL (7.8-10.44); Carbon Dioxide 16 mmol/L (22-29); Chloride 109 mmol/L (98-107); Estimated GFR 104; Globulin 3.4 g/dL (2.4-3.5); Glucose 87 mg/dL (70-105); Potassium 4.4 mmol/L (3.5-5.1); Sodium 138 mmol/L (136-145)
[2023-03-01 10:27] LABS: Bilirubin Neg (Negative); Blood, Urine 10 (Negative); Clarity Cloudy (Clear); Glucose, Urine (Dipstick) Normal (Negative); Ketone, Urine 5 mg/dL (Negative); Leukocyte 500 (Negative); Nitrite Negative (Negative); Protein, Urine (Dipstick) Negative (Neg-Trace); Urobilinogen Normal mg/dL (Less than 2)
[2023-03-01 10:33] LABS: Pregnancy Test - Urine (BHCG) Negative (Negative); Pregu Control Background? CLEAR/WHITE (CLR/WHITE); Pregu Control Bar Appear? YES (CONTROL BAR)
[2023-03-01 10:37] LABS: Bacteria/HPF 3+ HPF (None Seen); RBC/HPF 0-3 HPF (0-3); Squamous Epithelial 21-50 HPF (0-3); WBC/HPF 21-50 HPF (0-3)
[2023-03-01] MEDS ORDERED: Prochlorperazine 10 MG/2 ML VIAL ONE (10:42)
== END 2023-03-01 11:20 | disposition home or self-care (01) ==
LOC: CSHERS 09:20
DX: K51.90 Ulcerative colitis, unspecified, without complications (principal); R82.81 Pyuria
CPT/HCPCS: 80053; 81003; 81015; 81025; 85025; 86140; 87086; 96374; J0780; J1885

== ENCOUNTER 2023-03-11 01:05 | Emergency (ER) | payer OTHER ==
[2023-03-11] MEDS ORDERED: Lidocaine Viscous Sol 2% 15 ml UD Cup ONE (01:51)
[2023-03-11] MEDS ORDERED: Dicyclomine 20 MG/2 ML VIAL ONE (01:51)
[2023-03-11] MEDS ORDERED: Mag-Al Plus 1200 MG/1200 MG/120 MG/30 ML UDCUP ONE (01:51)
[2023-03-11] MEDS ORDERED: Ketorolac Tromethamine 30 MG/ML VIAL ONE (02:24)
[2023-03-11 02:45] LABS: Bilirubin Neg (Negative); Blood, Urine Negative (Negative); Clarity Slightly Cloudy (Clear); Glucose, Urine (Dipstick) Normal (Negative); Ketone, Urine Negative (Negative); Leukocyte 100 (Negative); Nitrite Negative (Negative); Protein, Urine (Dipstick) Negative (Neg-Trace); Urobilinogen Normal mg/dL (Less than 2)
[2023-03-11 02:50] LABS: Bacteria/HPF 1+ HPF (None Seen); Mucous/LPF 1+ LPF (<2+); RBC/HPF 0-3 HPF (0-3)
[2023-03-11 02:53] LABS: #Eosinphils 0.1 10x3/uL (0.0-0.5); #Monocytes 0.4 10x3/uL (0.0-1.1); %Basophils 0.3 % (0.0-2.0); %Eosinophils 0.8 % (0.0-6.0); %Lymphocytes 24.3 % (18.0-47.0); %Neutrophils 68.1 % (40.0-75.0); Hemoglobin 10.1 g/dL (12.0-15.5); Mean Corpuscular HGB CONC 31.7 g/dL (32.0-36.0); Mean Corpuscular Hemoglobin 21.8 pg (27.0-33.0); Mean Corpuscular Volume 68.9 fl (81.6-98.3); Mean Platelet Volume 10.1 fl (7.4-10.4); Platelet Count 314 10x3/uL (150-450); RBC Distribution Width 17.7 % (11.5-14.5); Red Blood Cell (RBC) Count 4.63 10x6/uL (3.90-5.03); White Blood Cell (WBC) Count 7.3 10x3/uL (3.5-10.5)
[2023-03-11 02:58] LABS: BHCG - Serum Negative (NEGATIVE); Pregs Control Background? CLEAR/WHITE (CLR/WHITE); Pregs Control Bar Appear? YES (CONTROL BAR)
[2023-03-11 03:06] LABS: ALT (SGPT) 8 U/L (8-55); AST (SGOT) 17 U/L (5-34); Albumin 4.7 g/dL (3.5-5.0); Alkaline Phosphatase 49 U/L (40-110); Anion Gap 16 mmol/L (10-20); BUN (Urea Nitrogen) 9 mg/dL (7.0-18.7); Bilirubin, Total 0.4 mg/dL (0.2-1.2); Calc. Creatinine Clearance 0 mL/min (70-130); Calcium 9.3 mg/dL (7.8-10.44); Carbon Dioxide 21 mmol/L (22-29); Chloride 105 mmol/L (98-107); Estimated GFR 96; Globulin 3.4 g/dL (2.4-3.5); Glucose 99 mg/dL (70-105); Lipase 28 U/L (8-78); Potassium 3.1 mmol/L (3.5-5.1); Protein, Total 8.1 g/dL (6.0-8.3); Sodium 139 mmol/L (136-145)
[2023-03-11 03:34] LABS: Hypochromia SLIGHT = 6-15 cells (100X) (0-5/hpf); Microcytosis SLIGHT = 6-15 cells (100X) (0-5/hpf)
[2023-03-11 03:35] LABS: Ovalocytes SLIGHT = 2-5 cells (100X) (0-1/hpf); Schistocytes SLIGHT = 2-5 cells (100X) (0-1/hpf); Tear Drops SLIGHT = 2-5 cells (100X) (0-1/hpf)
[2023-03-11] MEDS ORDERED: Potassium Chloride 20 MEQ TAB ONE (03:39)
[2023-03-11] MEDS ORDERED: Cephalexin 250 MG CAP ONE (03:40)
== END 2023-03-11 03:48 | disposition home or self-care (01) ==
LOC: CSHERS 01:05
DX: N39.0 Urinary tract infection, site not specified (principal); E87.6 Hypokalemia; K21.9 Gastro-esophageal reflux disease without esophagitis; D64.9 Anemia, unspecified; Z79.899 Other long term (current) drug therapy
CPT/HCPCS: 36415; 80053; 81003; 81015; 83605; 83690; 84703; 85025; 87077; 87086; 96372; 99284; J1885

== ENCOUNTER 2023-05-11 13:24 | Emergency (ER) | payer OTHER ==
[2023-05-11] MEDS ORDERED: Morphine 4 MG/ML VIAL ONE (14:40)
[2023-05-11] MEDS ORDERED: Promethazine HCl 25 MG in Sodium Chloride 0.9% 50 ML IVPB SCH (14:45)
[2023-05-11 15:38] LABS: Hemoglobin 8.7 g/dL (12.0-15.5); Mean Corpuscular HGB CONC 31.3 g/dL (32.0-36.0); Mean Corpuscular Hemoglobin 20.8 pg (27.0-33.0); Mean Corpuscular Volume 66.5 fl (81.6-98.3); Mean Platelet Volume 10.3 fl (7.4-10.4); Platelet Count 411 10x3/uL (150-450); RBC Distribution Width 19.1 % (11.5-14.5); Red Blood Cell (RBC) Count 4.18 10x6/uL (3.90-5.03); White Blood Cell (WBC) Count 6.7 10x3/uL (3.5-10.5)
[2023-05-11 15:39] LABS: #Monocytes 0.4 10x3/uL (0.0-1.1); #Neutrophils 3.6 10x3/uL (1.5-8.4); %Basophils 0.3 % (0.0-2.0); %Eosinophils 0.6 % (0.0-6.0); %Lymphocytes 41.7 % (18.0-47.0); %Monocytes 5.2 % (0.0-10.0); %Neutrophils 51.9 % (40.0-75.0)
[2023-05-11 15:41] LABS: ALT (SGPT) 14 U/L (8-55); AST (SGOT) 17 U/L (5-34); Albumin 4.1 g/dL (3.5-5.0); Alkaline Phosphatase 51 U/L (40-110); Anion Gap 13 mmol/L (10-20); BUN (Urea Nitrogen) 12 mg/dL (7.0-18.7); Bilirubin, Total 0.3 mg/dL (0.2-1.2); Calc. Creatinine Clearance 0 mL/min (70-130); Calcium 8.5 mg/dL (7.8-10.44); Carbon Dioxide 22 mmol/L (22-29); Chloride 106 mmol/L (98-107); Estimated GFR 101; Globulin 3.4 g/dL (2.4-3.5); Glucose 86 mg/dL (70-105); Potassium 3.6 mmol/L (3.5-5.1); Protein, Total 7.5 g/dL (6.0-8.3); Sodium 137 mmol/L (136-145)
[2023-05-11] MEDS ORDERED: predniSONE 20 MG TAB ONE (15:50)
== END 2023-05-11 17:35 | disposition home or self-care (01) ==
LOC: CSHERS 13:24
DX: K51.90 Ulcerative colitis, unspecified, without complications (principal); K21.9 Gastro-esophageal reflux disease without esophagitis
CPT/HCPCS: 80053; 85025; 86140; 96374; 96375; J2270; J2550; J7512

== ENCOUNTER 2023-05-25 05:01 | Inpatient (IN) | payer OTHER ==
[2023-05-25] MEDS ORDERED: Promethazine HCl 12.5 MG, Admixture Fee 1 EACH in Sodium Chloride 0.9% 50 ML IVPB SCH (05:45)
[2023-05-25 06:01] LABS: #Monocytes 0.2 10x3/uL (0.0-1.1); #Neutrophils 11.9 10x3/uL (1.5-8.4); %Basophils 0.1 % (0.0-2.0); %Monocytes 1.4 % (0.0-10.0); Hemoglobin 10.2 g/dL (12.0-15.5); Mean Corpuscular HGB CONC 31.6 g/dL (32.0-36.0); Mean Corpuscular Hemoglobin 20.5 pg (27.0-33.0); Mean Corpuscular Volume 64.9 fl (81.6-98.3); Platelet Count 403 10x3/uL (150-450); RBC Distribution Width 19.4 % (11.5-14.5); Red Blood Cell (RBC) Count 4.98 10x6/uL (3.90-5.03); White Blood Cell (WBC) Count 14.2 10x3/uL (3.5-10.5)
[2023-05-25 06:06] LABS: CRP (Inflammatory) 5.04 mg/dL (= or < 0.5)
[2023-05-25 06:13] LABS: ALT (SGPT) 24 U/L (8-55); AST (SGOT) 18 U/L (5-34); Albumin 4.4 g/dL (3.5-5.0); Alkaline Phosphatase 64 U/L (40-110); Anion Gap 19 mmol/L (10-20); BUN (Urea Nitrogen) 9 mg/dL (7.0-18.7); Bilirubin, Total 0.3 mg/dL (0.2-1.2); Calc. Creatinine Clearance 0 mL/min (70-130); Calcium 9.5 mg/dL (7.8-10.44); Carbon Dioxide 21 mmol/L (22-29); Chloride 103 mmol/L (98-107); Estimated GFR 94; Globulin 3.4 g/dL (2.4-3.5); Glucose 124 mg/dL (70-105); Potassium 4.3 mmol/L (3.5-5.1); Protein, Total 7.8 g/dL (6.0-8.3); Sodium 139 mmol/L (136-145)
[2023-05-25 06:30] LABS: Anisocytosis SLIGHT = 6-15 cells (100X) (0-5/hpf); Macrocytosis SLIGHT = 6-15 cells (100X) (0-5/hpf); Microcytosis SLIGHT = 6-15 cells (100X) (0-5/hpf); Ovalocytes SLIGHT = 2-5 cells (100X) (0-1/hpf); Platelet Adequacy Comment Appears Adequate
[2023-05-25] MEDS ORDERED: methylPREDNISolone Sod Succ/PF 125 MG/2 ML VIAL ONE (06:45)
[2023-05-25] MEDS ORDERED: Morphine 2 MG/ML VIAL ONE ×4 (08:57→23:17)
[2023-05-25] MEDS: Sodium Chloride 0.9% 1,000 ML IV SCH ×3 (09:00→23:25)
[2023-05-25] MEDS ORDERED: Promethazine HCl 12.5 MG in Sodium Chloride 0.9% 50 ML IVPB SCH (12:15)
[2023-05-25] MEDS ORDERED: methylPREDNISolone Sod Succ/PF 125 MG/2 ML VIAL IVP SCH (14:00)
[2023-05-25] MEDS ORDERED: methylPREDNISolone Sod Succ 40 MG VIAL ONE ×2 (14:43→22:32)
[2023-05-25] MEDS: Morphine 2 MG/ML VIAL SLOW IVP PRN ×3 (17:06→23:24)
[2023-05-25] MEDS ORDERED: Acetaminophen 325 MG TAB PO PRN (18:13)
[2023-05-25] MEDS: Promethazine HCl 12.5 MG in Sodium Chloride 0.9% 50 ML IVPB PRN (18:29)
[2023-05-25] MEDS: methylPREDNISolone Sod Succ 40 MG VIAL IVP SCH (22:59)
[2023-05-26] MEDS: Promethazine HCl 12.5 MG in Sodium Chloride 0.9% 50 ML IVPB PRN ×3 (00:29→19:38)
[2023-05-26] MEDS ORDERED: Morphine 2 MG/ML VIAL ONE ×6 (01:13→12:52)
[2023-05-26] MEDS: Morphine 2 MG/ML VIAL SLOW IVP PRN ×8 (01:25→21:37)
[2023-05-26 03:57] LABS: Anion Gap 14 mmol/L (10-20); BUN (Urea Nitrogen) 7 mg/dL (7.0-18.7); Calc. Creatinine Clearance 0 mL/min (70-130); Calcium 10.5 mg/dL (7.8-10.44); Carbon Dioxide 23 mmol/L (22-29); Chloride 104 mmol/L (98-107); Estimated GFR 112; Glucose 113 mg/dL (70-105); Potassium 4.2 mmol/L (3.5-5.1); Sodium 137 mmol/L (136-145)
[2023-05-26 04:01] LABS: Hemoglobin 9.6 g/dL (12.0-15.5); Mean Corpuscular HGB CONC 31.2 g/dL (32.0-36.0); Mean Corpuscular Hemoglobin 20.7 pg (27.0-33.0); Mean Corpuscular Volume 66.4 fl (81.6-98.3); Platelet Count 484 10x3/uL (150-450); RBC Distribution Width 19.6 % (11.5-14.5); Red Blood Cell (RBC) Count 4.64 10x6/uL (3.90-5.03); White Blood Cell (WBC) Count 24.2 10x3/uL (3.5-10.5)
[2023-05-26 04:32] LABS: Pregnancy Test - Urine (BHCG) Negative (Negative); Pregu Control Background? CLEAR/WHITE (CLR/WHITE); Pregu Control Bar Appear? YES (CONTROL BAR); Specific Gravity 1.005 (1.002-1.036)
[2023-05-26 04:40] LABS: MDiff Complete? YES
[2023-05-26 04:44] LABS: Band 9 % (5-11); Lymphocytes 11 % (21-51); Monocytes 2 % (0-10); Neutrophil 78 % (42-75)
[2023-05-26 04:46] LABS: Anisocytosis SLIGHT = 6-15 cells (100X) (0-5/hpf); Hypochromia SLIGHT = 6-15 cells (100X) (0-5/hpf); Macrocytosis SLIGHT = 6-15 cells (100X) (0-5/hpf); Microcytosis SLIGHT = 6-15 cells (100X) (0-5/hpf); Ovalocytes SLIGHT = 2-5 cells (100X) (0-1/hpf)
[2023-05-26 04:47] LABS: Platelet Adequacy Comment Appears Increased
[2023-05-26] MEDS ORDERED: methylPREDNISolone Sod Succ 40 MG VIAL ONE ×2 (05:08→13:29)
[2023-05-26] MEDS: methylPREDNISolone Sod Succ 40 MG VIAL IVP SCH ×3 (05:32→21:37)
[2023-05-26] MEDS: Sodium Chloride 0.9% 1,000 ML IV SCH ×4 (05:32→21:36)
[2023-05-26] MEDS ORDERED: Morphine 2 MG/ML VIAL SLOW IVP SCH (07:00)
[2023-05-26] MEDS ORDERED: HYDROcodone/Acetaminophen 5/325 mg Tablet ONE (11:44)
[2023-05-26] MEDS: HYDROcodone/Acetaminophen 5/325 mg Tablet PO PRN (11:45)
[2023-05-26] MEDS ORDERED: hydrOXYzine 25 MG TAB PO SCH (18:15)
[2023-05-27] MEDS: Morphine 2 MG/ML VIAL SLOW IVP PRN ×3 (01:10→10:57)
[2023-05-27] MEDS: Promethazine HCl 12.5 MG in Sodium Chloride 0.9% 50 ML IVPB PRN (01:44)
[2023-05-27 06:15] LABS: Hemoglobin 9.5 g/dL (12.0-15.5); Mean Corpuscular HGB CONC 31.5 g/dL (32.0-36.0); Mean Corpuscular Hemoglobin 20.3 pg (27.0-33.0); Mean Corpuscular Volume 64.4 fl (81.6-98.3); Platelet Count 346 10x3/uL (150-450); RBC Distribution Width 19.9 % (11.5-14.5); Red Blood Cell (RBC) Count 4.69 10x6/uL (3.90-5.03); White Blood Cell (WBC) Count 19.5 10x3/uL (3.5-10.5)
[2023-05-27 06:18] LABS: MDiff Complete? YES
[2023-05-27 06:20] LABS: Lymphocytes 7 % (21-51); Monocytes 3 % (0-10); Neutrophil 90 % (42-75)
[2023-05-27 06:31] LABS: Anion Gap 16 mmol/L (10-20); BUN (Urea Nitrogen) 6 mg/dL (7.0-18.7); Calc. Creatinine Clearance 0 mL/min (70-130); Calcium 8.6 mg/dL (7.8-10.44); Carbon Dioxide 19 mmol/L (22-29); Chloride 109 mmol/L (98-107); Estimated GFR 104; Glucose 136 mg/dL (70-105); Potassium 3.5 mmol/L (3.5-5.1); Sodium 140 mmol/L (136-145)
[2023-05-27 06:38] LABS: Anisocytosis SLIGHT = 6-15 cells (100X) (0-5/hpf); Macrocytosis SLIGHT = 6-15 cells (100X) (0-5/hpf); Microcytosis SLIGHT = 6-15 cells (100X) (0-5/hpf)
[2023-05-27 06:39] LABS: Elliptocytes SLIGHT = 2-5 cells (100X) (0-1/hpf); Hypochromia SLIGHT = 6-15 cells (100X) (0-5/hpf); Platelet Adequacy Comment Appears Adequate
[2023-05-27] MEDS: Sodium Chloride 0.9% 1,000 ML IV SCH (08:02)
[2023-05-27] MEDS: predniSONE 20 MG TAB PO SCH (08:03)
[2023-05-27] MEDS: Promethazine HCl 12.5 MG, Admixture Fee 1 EACH in Sodium Chloride 0.9% 50 ML IVPB PRN ×2 (08:37→17:30)
[2023-05-27] MEDS: HYDROcodone/Acetaminophen 5/325 mg Tablet PO PRN ×2 (11:02→15:57)
[2023-05-27] MEDS ORDERED: fentaNYL 50 mcg/mL 1 mL Vial SLOW IVP PRN (13:14)
[2023-05-27] MEDS: Lactated Ringer's 1,000 ML IV SCH (14:13)
[2023-05-27] MEDS: hydrOXYzine 25 MG TAB PO PRN ×2 (15:58→21:31)
[2023-05-27 19:57] LABS: Campy jejuni + coli by PCR Negative (Negative); STEC Shiga Toxin 1+2 Negative (Negative); Salmonella spp. by PCR Negative (Negative); Shigella spp + EIEC by PCR Negative (Negative)
[2023-05-27] MEDS: traMADol HCl 50 MG TAB PO SCH (19:59)
[2023-05-27] MEDS: Acetaminophen 325 MG TAB PO SCH ×2 (19:59→21:31)
[2023-05-27] MEDS: Morphine 4 MG/ML VIAL SLOW IVP PRN (21:31)
[2023-05-28] MEDS: Promethazine HCl 12.5 MG, Admixture Fee 1 EACH in Sodium Chloride 0.9% 50 ML IVPB PRN ×4 (00:28→21:46)
[2023-05-28] MEDS: traMADol HCl 50 MG TAB PO SCH ×5 (00:29→23:51)
[2023-05-28] MEDS: HYDROcodone/Acetaminophen 5/325 mg Tablet PO PRN ×3 (01:21→12:27)
[2023-05-28] MEDS: Acetaminophen 325 MG TAB PO SCH ×5 (01:30→18:21)
[2023-05-28] MEDS: Lactated Ringer's 1,000 ML IV SCH ×3 (01:52→14:48)
[2023-05-28] MEDS: Morphine 4 MG/ML VIAL SLOW IVP PRN ×5 (02:00→21:48)
[2023-05-28 05:40] LABS: #Neutrophils 9.8 10x3/uL (1.5-8.4); %Basophils 0.1 % (0.0-2.0); %Eosinophils 0.1 % (0.0-6.0); %Lymphocytes 27.2 % (18.0-47.0); %Monocytes 6.4 % (0.0-10.0); %Neutrophils 64.4 % (40.0-75.0); Hemoglobin 9.3 g/dL (12.0-15.5); Mean Corpuscular HGB CONC 30.9 g/dL (32.0-36.0); Mean Corpuscular Hemoglobin 20.5 pg (27.0-33.0); Mean Corpuscular Volume 66.4 fl (81.6-98.3); Platelet Count 410 10x3/uL (150-450); RBC Distribution Width 19.6 % (11.5-14.5); Red Blood Cell (RBC) Count 4.53 10x6/uL (3.90-5.03); White Blood Cell (WBC) Count 14.8 10x3/uL (3.5-10.5)
[2023-05-28 05:53] LABS: Anion Gap 13 mmol/L (10-20); BUN (Urea Nitrogen) 15 mg/dL (7.0-18.7); Calc. Creatinine Clearance 0 mL/min (70-130); Calcium 8.4 mg/dL (7.8-10.44); Carbon Dioxide 24 mmol/L (22-29); Chloride 103 mmol/L (98-107); Estimated GFR 76; Glucose 101 mg/dL (70-105); Potassium 3.4 mmol/L (3.5-5.1); Sodium 137 mmol/L (136-145)
[2023-05-28 06:23] LABS: Anisocytosis SLIGHT = 6-15 cells (100X) (0-5/hpf); Hypochromia SLIGHT = 6-15 cells (100X) (0-5/hpf); Macrocytosis SLIGHT = 6-15 cells (100X) (0-5/hpf); Microcytosis SLIGHT = 6-15 cells (100X) (0-5/hpf); Ovalocytes SLIGHT = 2-5 cells (100X) (0-1/hpf); Platelet Adequacy Comment Appears Adequate; Schistocytes SLIGHT = 2-5 cells (100X) (0-1/hpf)
[2023-05-28] MEDS: predniSONE 20 MG TAB PO SCH (10:13)
[2023-05-28] MEDS ORDERED: Electrolyte Replacement Protocol 1 EACH FS SCH (13:30)
[2023-05-28] MEDS: Potassium Chloride 20 MEQ TAB PO SCH ×2 (17:30→18:23)
[2023-05-28] MEDS ORDERED: Ketorolac Tromethamine 30 MG/ML VIAL IVP PRN (17:58)
[2023-05-28] MEDS: Potassium Chloride 20 MEQ in Premix Bag 1 BAG IVPB SCH ×2 (18:06→18:07)
[2023-05-28] MEDS ORDERED: oxyCODONE/Acetaminophen 5 mg/325 mg Tablet PO PRN (20:12)
[2023-05-28] MEDS ORDERED: Acetaminophen 325 MG TAB PO PRN (20:34)
[2023-05-28] MEDS ORDERED: oxyCODONE 5 MG TAB PO PRN (20:39)
[2023-05-29] MEDS: Lactated Ringer's 1,000 ML IV SCH ×2 (01:06→05:26)
[2023-05-29] MEDS: Morphine 4 MG/ML VIAL SLOW IVP PRN (02:19)
[2023-05-29 05:23] LABS: #Monocytes 0.9 10x3/uL (0.0-1.1); #Neutrophils 11.8 10x3/uL (1.5-8.4); %Basophils 0.2 % (0.0-2.0); %Monocytes 5.1 % (0.0-10.0); %Neutrophils 68.7 % (40.0-75.0); Mean Corpuscular HGB CONC 31.3 g/dL (32.0-36.0); Mean Corpuscular Hemoglobin 20.6 pg (27.0-33.0); Mean Corpuscular Volume 65.6 fl (81.6-98.3); Platelet Count 418 10x3/uL (150-450); RBC Distribution Width 19.5 % (11.5-14.5); Red Blood Cell (RBC) Count 4.86 10x6/uL (3.90-5.03); White Blood Cell (WBC) Count 17.2 10x3/uL (3.5-10.5)
[2023-05-29] MEDS: traMADol HCl 50 MG TAB PO SCH (05:24)
[2023-05-29 05:33] LABS: Anion Gap 17 mmol/L (10-20); BUN (Urea Nitrogen) 10 mg/dL (7.0-18.7); Calc. Creatinine Clearance 0 mL/min (70-130); Calcium 9.2 mg/dL (7.8-10.44); Carbon Dioxide 29 mmol/L (22-29); Chloride 97 mmol/L (98-107); Estimated GFR 94; Glucose 106 mg/dL (70-105); Magnesium 1.9 mg/dL (1.6-2.6); Potassium 3.9 mmol/L (3.5-5.1); Sodium 139 mmol/L (136-145)
[2023-05-29 05:41] LABS: Anisocytosis SLIGHT = 6-15 cells (100X) (0-5/hpf); Hypochromia SLIGHT = 6-15 cells (100X) (0-5/hpf); Microcytosis SLIGHT = 6-15 cells (100X) (0-5/hpf)
[2023-05-29 05:42] LABS: Platelet Adequacy Comment Appears Adequate; Schistocytes SLIGHT = 2-5 cells (100X) (0-1/hpf)
[2023-05-29] MEDS ORDERED: traMADol HCl 50 MG TAB PO PRN (08:23)
[2023-05-29] MEDS ORDERED: Magnesium 2 GM/50 ML(in water) 2 GM in Premix Bag 1 BAG IVPB SCH (09:00)
[2023-05-29] MEDS: predniSONE 20 MG TAB PO SCH (09:13)
[2023-05-29] MEDS ORDERED: methylPREDNISolone Sod Succ 40 MG VIAL IVP SCH (10:00)
[2023-05-29] MEDS ORDERED: Acetaminophen 325 MG Suppository PR SCH (10:00)
[2023-05-29] MEDS ORDERED: Promethazine HCl 25 MG in Sodium Chloride 0.9% 50 ML IVPB SCH (10:00)
[2023-05-29] MEDS: Acetaminophen 325 MG TAB PO SCH ×2 (10:10→14:30)
[2023-05-29] MEDS ORDERED: Promethazine HCl 25 MG/ML VIAL ONE (10:38)
[2023-05-29 12:42] VITALS: BP 143/99; TEMP 97.8
== END 2023-05-29 14:20 | disposition home or self-care (01) | DRG 386 ==
LOC: CSHERS 05:01 → CSHERHOLD 13:38 → CSHTELE 05-26 14:42
PROVIDERS: ADMIT Internal Medicine; ATTEND Family Medicine
DX: K51.90 Ulcerative colitis, unspecified, without complications (principal); F11.20 Opioid dependence, uncomplicated; N39.0 Urinary tract infection, site not specified; D50.0 Iron deficiency anemia secondary to blood loss (chronic); K21.9 Gastro-esophageal reflux disease without esophagitis; E86.0 Dehydration; F41.9 Anxiety disorder, unspecified; F32.A Depression, unspecified; B96.20 Unspecified Escherichia coli [E. coli] as the cause of diseases classified elsewhere; N80.9 Endometriosis, unspecified; Z88.8 Allergy status to other drugs, medicaments and biological substances; Z88.0 Allergy status to penicillin; Z88.2 Allergy status to sulfonamides; Z79.899 Other long term (current) drug therapy; Z79.52 Long term (current) use of systemic steroids; Z88.5 Allergy status to narcotic agent
CPT/HCPCS: 36415; 80048; 80053; 81001; 81025; 83605; 83690; 83735; 84100; 85025; 86140; 87077; 87086; 87186; 87324; 87328; 87329; 87449; 87505; 96361; 96365; 96367; 96375; 96376; J0692; J2270; J2272; J2550; J2920; J2930; J3010; J3475; J7050; J7120; J7512

== ENCOUNTER 2023-06-08 10:36 | Emergency (ER) | payer OTHER ==
[2023-06-08 11:51] LABS: Bilirubin Neg (Negative); Blood, Urine Negative (Negative); Clarity Clear (Clear); Glucose, Urine (Dipstick) Normal (Negative); Ketone, Urine Negative (Negative); Leukocyte 500 (Negative); Nitrite Negative (Negative); Protein, Urine (Dipstick) Negative (Neg-Trace); Urobilinogen Normal mg/dL (Less than 2)
[2023-06-08] MEDS ORDERED: Acetaminophen 325 MG TAB ONE (12:10)
[2023-06-08] MEDS ORDERED: HYDROmorphone 0.5 MG/0.5 ML SYRINGE ONE ×2 (12:10→13:26)
[2023-06-08 12:13] LABS: CAUTI Indications for Culture Pelvic or flank pain; RBC/HPF 0-3 HPF (0-3); Squamous Epithelial 0-3 HPF (0-3)
[2023-06-08 12:14] LABS: Bacteria/HPF 1+ HPF (None Seen)
[2023-06-08 12:15] LABS: Urine Culture Reflex Yes Yes
[2023-06-08 12:42] LABS: Hemoglobin 9.6 g/dL (12.0-15.5); MDiff Complete? YES; Mean Corpuscular HGB CONC 32.4 g/dL (32.0-36.0); Mean Corpuscular Hemoglobin 21.3 pg (27.0-33.0); Mean Corpuscular Volume 65.8 fl (81.6-98.3); Platelet Count 328 10x3/uL (150-450); RBC Distribution Width 22.1 % (11.5-14.5); White Blood Cell (WBC) Count 20.7 10x3/uL (3.5-10.5)
[2023-06-08 12:43] LABS: Pregnancy Test - Urine (BHCG) Negative (Negative); Pregu Control Background? CLEAR/WHITE (CLR/WHITE); Pregu Control Bar Appear? YES (CONTROL BAR)
[2023-06-08 12:48] LABS: ALT (SGPT) 42 U/L (8-55); AST (SGOT) 26 U/L (5-34); Albumin 4.3 g/dL (3.5-5.0); Alkaline Phosphatase 46 U/L (40-110); Anion Gap 15 mmol/L (10-20); BUN (Urea Nitrogen) 18 mg/dL (7.0-18.7); Bilirubin, Total 0.4 mg/dL (0.2-1.2); Calc. Creatinine Clearance 0 mL/min (70-130); Calcium 9.4 mg/dL (7.8-10.44); Carbon Dioxide 28 mmol/L (22-29); Chloride 95 mmol/L (98-107); Estimated GFR 86; Glucose 103 mg/dL (70-105); Lipase 70 U/L (8-78); Potassium 4.2 mmol/L (3.5-5.1); Protein, Total 7.3 g/dL (6.0-8.3); Sodium 134 mmol/L (136-145)
[2023-06-08] MEDS ORDERED: Promethazine HCl 12.5 MG in Sodium Chloride 0.9% 50 ML IVPB SCH (13:00)
[2023-06-08] MEDS ORDERED: Promethazine HCl 25 MG/ML VIAL IM SCH (13:00)
[2023-06-08 13:01] LABS: Band 4 % (5-11); Lymphocytes 16 % (21-51); Myelocyte 1 % (0-0); Neutrophil 78 % (42-75); Reactive Lymphocytes 1 % (0-10)
[2023-06-08 13:07] LABS: Anisocytosis MODERATE=16-30 cells (100X) (0-5/hpf)
[2023-06-08 13:08] LABS: Microcytosis SLIGHT = 6-15 cells (100X) (0-5/hpf)
[2023-06-08 13:09] LABS: Ovalocytes MODERATE= 6-15 cells (100X) (0-1/hpf); Polychromasia SLIGHT = 2-3 cells (100X) (0-2/hpf); Schistocytes SLIGHT = 2-5 cells (100X) (0-1/hpf); Target Cells SLIGHT = 2-5 cells (100X) (0-1/hpf); Tear Drops SLIGHT = 2-5 cells (100X) (0-1/hpf)
[2023-06-08 13:10] LABS: Hypochromia MODERATE=16-30 cells (100X) (0-5/hpf); Poikilocytosis SLIGHT = 6-15 cells (100X) (0-5/hpf)
[2023-06-08 13:11] LABS: Elliptocytes SLIGHT = 2-5 cells (100X) (0-1/hpf); Helmet Cells SLIGHT = 2-5 cells (100X) (0-1/hpf)
[2023-06-08 13:12] LABS: Macrocytosis SLIGHT = 6-15 cells (100X) (0-5/hpf)
[2023-06-08 13:14] LABS: Large Platelets SLIGHT (None Seen); Platelet Adequacy Comment Appears Adequate
== END 2023-06-08 14:40 | disposition home or self-care (01) ==
LOC: CSHERS 10:36
DX: R10.30 Lower abdominal pain, unspecified (principal); D72.829 Elevated white blood cell count, unspecified; K21.9 Gastro-esophageal reflux disease without esophagitis
CPT/HCPCS: 80053; 81001; 81025; 83690; 85025; 87086; 93005; 96372; 96374; 96376; J1170; J2550

== ENCOUNTER 2023-06-20 12:12 | Emergency (ER) | payer OTHER ==
[2023-06-20 13:13] LABS: BHCG - Serum Negative (NEGATIVE); Pregs Control Background? CLEAR/WHITE (CLR/WHITE); Pregs Control Bar Appear? YES (CONTROL BAR)
[2023-06-20 13:19] LABS: ALT (SGPT) 23 U/L (8-55); AST (SGOT) 17 U/L (5-34); Albumin 3.7 g/dL (3.5-5.0); Alkaline Phosphatase 44 U/L (40-110); Anion Gap 14 mmol/L (10-20); BUN (Urea Nitrogen) 14 mg/dL (7.0-18.7); Bilirubin, Total 0.3 mg/dL (0.2-1.2); Calc. Creatinine Clearance 0 mL/min (70-130); Calcium 8.4 mg/dL (7.8-10.44); Carbon Dioxide 22 mmol/L (22-29); Chloride 107 mmol/L (98-107); Estimated GFR 90; Globulin 2.7 g/dL (2.4-3.5); Glucose 125 mg/dL (70-105); Potassium 3.3 mmol/L (3.5-5.1); Protein, Total 6.4 g/dL (6.0-8.3); Sodium 140 mmol/L (136-145)
[2023-06-20 13:27] LABS: Hemoglobin 9.1 g/dL (12.0-15.5); Mean Corpuscular HGB CONC 31.6 g/dL (32.0-36.0); Mean Corpuscular Hemoglobin 21.2 pg (27.0-33.0); Mean Corpuscular Volume 67.1 fl (81.6-98.3); Platelet Count 269 10x3/uL (150-450); RBC Distribution Width 22.4 % (11.5-14.5); Red Blood Cell (RBC) Count 4.29 10x6/uL (3.90-5.03); White Blood Cell (WBC) Count 5.5 10x3/uL (3.5-10.5)
[2023-06-20] MEDS ORDERED: Pantoprazole 40 MG VIAL ONE (13:33)
[2023-06-20] MEDS ORDERED: Promethazine HCl 25 MG in Sodium Chloride 0.9% 50 ML IVPB SCH (13:45)
[2023-06-20 14:39] LABS: Bilirubin Neg (Negative); Blood, Urine Negative (Negative); Clarity Clear (Clear); Glucose, Urine (Dipstick) Normal (Negative); Ketone, Urine Negative (Negative); Leukocyte 500 (Negative); Nitrite Negative (Negative); Protein, Urine (Dipstick) Negative (Neg-Trace); Urobilinogen Normal mg/dL (Less than 2)
[2023-06-20 14:59] LABS: Bacteria/HPF Rare-Few HPF (None Seen); CAUTI Indications for Culture Pelvic or flank pain; RBC/HPF None Seen HPF (0-3); WBC/HPF 21-50 HPF (0-3)
[2023-06-20 15:00] LABS: Urine Culture Reflex Yes Yes
[2023-06-20 15:19] LABS: Band 1 % (5-11); Eosinophils 4 % (0-10); Lymphocytes 43 % (21-51); Monocytes 3 % (0-10); Reactive Lymphocytes 10 % (0-10)
[2023-06-20 15:21] LABS: Anisocytosis MODERATE=16-30 cells (100X) (0-5/hpf); Microcytosis SLIGHT = 6-15 cells (100X) (0-5/hpf); Neutrophil 39 % (42-75); Poikilocytosis SLIGHT = 6-15 cells (100X) (0-5/hpf)
[2023-06-20 15:22] LABS: Ovalocytes SLIGHT = 2-5 cells (100X) (0-1/hpf); Tear Drops SLIGHT = 2-5 cells (100X) (0-1/hpf)
[2023-06-20 15:23] LABS: Hypochromia SLIGHT = 6-15 cells (100X) (0-5/hpf)
[2023-06-20 15:27] LABS: Schistocytes SLIGHT = 2-5 cells (100X) (0-1/hpf)
[2023-06-20 15:28] LABS: Platelet Adequacy Comment Appears Adequate
[2023-06-20 15:29] LABS: MDiff Complete? YES
[2023-06-20 15:31] LABS: Elliptocytes SLIGHT = 2-5 cells (100X) (0-1/hpf)
[2023-06-20] MEDS ORDERED: Dicyclomine 20 MG/2 ML VIAL ONE (16:00)
== END 2023-06-20 16:21 | disposition home or self-care (01) ==
LOC: CSHERS 12:12
DX: D64.9 Anemia, unspecified (principal); R10.32 Left lower quadrant pain; K21.9 Gastro-esophageal reflux disease without esophagitis
CPT/HCPCS: 36415; 80053; 81001; 84703; 85025; 87077; 87086; 93005; 93010; 96361; 96365; 96375; C9113; J2550

== ENCOUNTER 2023-08-14 23:15 | Emergency (ER) | payer OTHER, SELFPAY ==
[2023-08-15] MEDS ORDERED: SUMAtriptan Succinate 6 MG/0.5 ML VIAL ONE (00:27)
[2023-08-15] MEDS ORDERED: Ketorolac Tromethamine 30 MG/ML VIAL ONE (00:28)
[2023-08-15] MEDS ORDERED: Dexamethasone 10 MG/ML VIAL ONE (00:28)
[2023-08-15] MEDS ORDERED: Prochlorperazine 10 MG/2 ML VIAL ONE (00:28)
[2023-08-15] MEDS ORDERED: Morphine 4 MG/ML VIAL ONE (01:40)
== END 2023-08-15 04:06 | disposition home or self-care (01) ==
LOC: CSHERS 23:15
DX: G43.909 Migraine, unspecified, not intractable, without status migrainosus (principal); K51.90 Ulcerative colitis, unspecified, without complications; K21.9 Gastro-esophageal reflux disease without esophagitis
CPT/HCPCS: 96372; 96374; 96375; J0780; J1100; J1885; J2270; J3030

== ENCOUNTER 2023-08-22 14:55 | Emergency (ER) | payer SELFPAY ==
[2023-08-22 15:25] LABS: Bilirubin Neg (Negative); Blood, Urine Negative (Negative); Clarity Clear (Clear); Glucose, Urine (Dipstick) Normal (Negative); Ketone, Urine Negative (Negative); Leukocyte 25 (Negative); Nitrite Negative (Negative); Protein, Urine (Dipstick) Negative (Neg-Trace); Specific Gravity, Urine 1.015 (1.005-1.030); Urobilinogen Normal mg/dL (Less than 2)
[2023-08-22 15:28] LABS: Pregnancy Test - Urine (BHCG) Negative (Negative); Pregu Control Background? CLEAR/WHITE (CLR/WHITE); Pregu Control Bar Appear? YES (CONTROL BAR); Specific Gravity 1.015 (1.002-1.036)
[2023-08-22 15:48] LABS: Bacteria/HPF None Seen HPF (None Seen); CAUTI Indications for Culture Pelvic or flank pain; RBC/HPF None Seen HPF (0-3); Squamous Epithelial 0-3 HPF (0-3); WBC/HPF 0-3 HPF (0-3)
[2023-08-22 15:50] LABS: Urine Culture Reflex No No
[2023-08-22] MEDS ORDERED: Ketorolac Tromethamine 30 MG/ML VIAL ONE (16:19)
[2023-08-22 16:28] LABS: #Eosinphils 0.1 10x3/uL (0.0-0.5); #Monocytes 0.3 10x3/uL (0.0-1.1); #Neutrophils 1.9 10x3/uL (1.5-8.4); %Basophils 0.4 % (0.0-2.0); %Eosinophils 1.1 % (0.0-6.0); %Lymphocytes 58.5 % (18.0-47.0); %Monocytes 5.5 % (0.0-10.0); %Neutrophils 34.3 % (40.0-75.0); Hematocrit 32.8 % (34.9-44.5); Mean Corpuscular HGB CONC 30.5 g/dL (32.0-36.0); Mean Corpuscular Hemoglobin 20.8 pg (27.0-33.0); Mean Corpuscular Volume 68.3 fl (81.6-98.3); Mean Platelet Volume 10.6 fl (7.4-10.4); Platelet Count 391 10x3/uL (150-450); RBC Distribution Width 15.4 % (11.5-14.5); White Blood Cell (WBC) Count 5.5 10x3/uL (3.5-10.5)
[2023-08-22 16:45] LABS: BHCG - Serum Negative (NEGATIVE); Pregs Control Background? CLEAR/WHITE (CLR/WHITE); Pregs Control Bar Appear? YES (CONTROL BAR)
[2023-08-22 16:51] LABS: Acetaminophen Less than 10 mcg/mL (10.0-30.0); Alcohol Less than 10.0 mg/dL (Less than 10); Salicylate Less than 8.0 mg/dL (15.0-30.0)
[2023-08-22 16:52] LABS: ALT (SGPT) 11 U/L (8-55); AST (SGOT) 18 U/L (5-34); Albumin 4.4 g/dL (3.5-5.0); Alkaline Phosphatase 53 U/L (40-110); Anion Gap 13 mmol/L (10-20); BUN (Urea Nitrogen) 9 mg/dL (7.0-18.7); Bilirubin, Total 0.3 mg/dL (0.2-1.2); Calc. Creatinine Clearance 0 mL/min (70-130); Calcium 9.4 mg/dL (7.8-10.44); Carbon Dioxide 23 mmol/L (22-29); Chloride 106 mmol/L (98-107); Estimated GFR 96; Globulin 2.7 g/dL (2.4-3.5); Glucose 96 mg/dL (70-105); Lipase 58 U/L (8-78); Potassium 3.4 mmol/L (3.5-5.1); Protein, Total 7.1 g/dL (6.0-8.3); Sodium 139 mmol/L (136-145)
[2023-08-22] MEDS ORDERED: Promethazine HCl 25 MG in Sodium Chloride 0.9% 50 ML IVPB SCH (17:00)
[2023-08-22 17:34] LABS: Amphetamine Not Detected (NotDetected); Barbiturates Screen Not Detected (NotDetected); Benzodiazepine Screen Not Detected (NotDetected); Cocaine Metabolite Screen Not Detected (NotDetected); Methadone Not Detected (NotDetected); Methamphetamine Not Detected (NotDetected); Opiate Screen Not Detected (NotDetected); Oxycodone Screen Not Detected (NotDetected); Phencyclidine (PCP) Not Detected (NotDetected); THC/Cannabinoid Screen Not Detected (NotDetected); Tricyclic Screen Not Detected (NotDetected)
== END 2023-08-22 18:06 | disposition home or self-care (01) ==
LOC: CSHERS 14:55
DX: G89.29 Other chronic pain (principal); R10.9 Unspecified abdominal pain; K21.9 Gastro-esophageal reflux disease without esophagitis
CPT/HCPCS: 36415; 80053; 80306; 80307; 81001; 81025; 83690; 84703; 85025; 96374; 96375; J1885; J2550

== ENCOUNTER 2023-08-31 15:50 | Emergency (ER) | payer SELFPAY ==
[2023-08-31 16:37] LABS: #Monocytes 0.4 10x3/uL (0.0-1.1); #Neutrophils 4.8 10x3/uL (1.5-8.4); %Basophils 0.2 % (0.0-2.0); %Eosinophils 0.4 % (0.0-6.0); %Monocytes 4.4 % (0.0-10.0); %Neutrophils 49.7 % (40.0-75.0); Hematocrit 29.9 % (34.9-44.5); Hemoglobin 9.5 g/dL (12.0-15.5); Mean Corpuscular HGB CONC 31.8 g/dL (32.0-36.0); Mean Corpuscular Hemoglobin 21.5 pg (27.0-33.0); Mean Corpuscular Volume 67.8 fl (81.6-98.3); Mean Platelet Volume 8.8 fl (7.4-10.4); Platelet Count 316 10x3/uL (150-450); RBC Distribution Width 15.8 % (11.5-14.5); Red Blood Cell (RBC) Count 4.41 10x6/uL (3.90-5.03); White Blood Cell (WBC) Count 9.7 10x3/uL (3.5-10.5)
[2023-08-31] MEDS ORDERED: Promethazine HCl 25 MG in Sodium Chloride 0.9% 50 ML IVPB SCH (17:00)
[2023-08-31 17:05] LABS: ALT (SGPT) 11 U/L (8-55); AST (SGOT) 17 U/L (5-34); Albumin 4.1 g/dL (3.5-5.0); Alkaline Phosphatase 46 U/L (40-110); Anion Gap 15 mmol/L (10-20); BUN (Urea Nitrogen) 11 mg/dL (7.0-18.7); Bilirubin, Total 0.3 mg/dL (0.2-1.2); Calc. Creatinine Clearance 0 mL/min (70-130); Calcium 8.7 mg/dL (7.8-10.44); Carbon Dioxide 22 mmol/L (22-29); Chloride 106 mmol/L (98-107); Estimated GFR 98; Globulin 2.9 g/dL (2.4-3.5); Glucose 123 mg/dL (70-105); Sodium 140 mmol/L (136-145)
[2023-08-31] MEDS ORDERED: Acetaminophen 500 MG TAB ONE (17:05)
[2023-08-31 17:17] LABS: Potassium 2.6 mmol/L (3.5-5.1)
[2023-08-31 17:38] LABS: Magnesium 1.7 mg/dL (1.6-2.6)
[2023-08-31] MEDS ORDERED: Potassium Chloride 20 MEQ/100 ML PREMIX BAG ONE (17:42)
[2023-08-31] MEDS ORDERED: Potassium Chloride 20 MEQ TAB ONE (17:42)
[2023-08-31 18:33] LABS: Bilirubin Neg (Negative); Blood, Urine Negative (Negative); Clarity Clear (Clear); Glucose, Urine (Dipstick) Normal (Negative); Ketone, Urine Negative (Negative); Leukocyte 100 (Negative); Nitrite Negative (Negative); Protein, Urine (Dipstick) Negative (Neg-Trace); Urobilinogen Normal mg/dL (Less than 2)
[2023-08-31 18:50] LABS: Bacteria/HPF 1+ HPF (None Seen); CAUTI Indications for Culture Pelvic or flank pain; RBC/HPF None Seen HPF (0-3); Squamous Epithelial 0-3 HPF (0-3); Urine Culture Reflex No No; WBC/HPF 0-3 HPF (0-3)
[2023-09-01] MEDS ORDERED: Acetaminophen 500 MG TAB ONE (00:15)
[2023-09-01] MEDS ORDERED: Promethazine HCl 25 MG in Sodium Chloride 0.9% 50 ML IVPB SCH ×2 (04:15→11:00)
[2023-09-01 08:47] LABS: Anion Gap 10 mmol/L (10-20); BUN (Urea Nitrogen) 9 mg/dL (7.0-18.7); Calc. Creatinine Clearance 0 mL/min (70-130); Calcium 8.8 mg/dL (7.8-10.44); Carbon Dioxide 26 mmol/L (22-29); Chloride 108 mmol/L (98-107); Estimated GFR 101; Glucose 88 mg/dL (70-105); Magnesium 1.8 mg/dL (1.6-2.6); Potassium 3.1 mmol/L (3.5-5.1); Sodium 141 mmol/L (136-145)
[2023-09-01 09:02] LABS: #Eosinphils 0.1 10x3/uL (0.0-0.5); #Monocytes 0.4 10x3/uL (0.0-1.1); #Neutrophils 2.6 10x3/uL (1.5-8.4); %Basophils 0.3 % (0.0-2.0); %Eosinophils 0.9 % (0.0-6.0); %Lymphocytes 51.8 % (18.0-47.0); %Monocytes 5.8 % (0.0-10.0); %Neutrophils 40.9 % (40.0-75.0); Hematocrit 31.7 % (34.9-44.5); Hemoglobin 9.7 g/dL (12.0-15.5); Mean Corpuscular HGB CONC 30.6 g/dL (32.0-36.0); Mean Corpuscular Hemoglobin 20.9 pg (27.0-33.0); Mean Corpuscular Volume 68.2 fl (81.6-98.3); Mean Platelet Volume 9.9 fl (7.4-10.4); Platelet Count 369 10x3/uL (150-450); RBC Distribution Width 15.8 % (11.5-14.5); Red Blood Cell (RBC) Count 4.65 10x6/uL (3.90-5.03); White Blood Cell (WBC) Count 6.4 10x3/uL (3.5-10.5)
[2023-09-01] MEDS ORDERED: Potassium Chloride 20 MEQ TAB ONE (12:09)
== END 2023-09-01 12:30 | disposition home or self-care (01) ==
LOC: CSHERS 15:50
DX: E87.6 Hypokalemia (principal); K51.90 Ulcerative colitis, unspecified, without complications; K21.9 Gastro-esophageal reflux disease without esophagitis
CPT/HCPCS: 36415; 80048; 80053; 81001; 83735; 84702; 85025; 93005; 96365; 96366; 96375; 96376; J2550; J3480

== ENCOUNTER 2023-09-06 02:40 | Emergency (ER) | payer SELFPAY ==
[2023-09-06] MEDS ORDERED: Ketorolac Tromethamine 30 MG/ML VIAL ONE ×2 (03:06→04:42)
[2023-09-06] MEDS ORDERED: Dicyclomine 20 MG/2 ML VIAL ONE (03:06)
[2023-09-06] MEDS ORDERED: Promethazine HCl 25 MG in Sodium Chloride 0.9% 50 ML IVPB SCH (03:15)
[2023-09-06 03:44] LABS: #Neutrophils 6.2 10x3/uL (1.5-8.4); %Eosinophils 0.1 % (0.0-6.0); %Lymphocytes 6.5 % (18.0-47.0); %Monocytes 0.3 % (0.0-10.0); %Neutrophils 92.8 % (40.0-75.0); Hematocrit 28.5 % (34.9-44.5); Mean Corpuscular HGB CONC 31.6 g/dL (32.0-36.0); Mean Corpuscular Volume 66.6 fl (81.6-98.3); Mean Platelet Volume 9.9 fl (7.4-10.4); Platelet Count 278 10x3/uL (150-450); RBC Distribution Width 15.6 % (11.5-14.5); Red Blood Cell (RBC) Count 4.28 10x6/uL (3.90-5.03); White Blood Cell (WBC) Count 6.7 10x3/uL (3.5-10.5)
[2023-09-06 03:47] LABS: Bilirubin Neg (Negative); Blood, Urine 25 (Negative); Clarity Cloudy (Clear); Glucose, Urine (Dipstick) Normal (Negative); Ketone, Urine Negative (Negative); Leukocyte 500 (Negative); Nitrite Negative (Negative); Protein, Urine (Dipstick) 15 mg/dl (Neg-Trace); Urobilinogen Normal mg/dL (Less than 2)
[2023-09-06 03:50] LABS: BHCG - Serum Negative (NEGATIVE); Pregs Control Background? CLEAR/WHITE (CLR/WHITE); Pregs Control Bar Appear? YES (CONTROL BAR)
[2023-09-06 03:52] LABS: ALT (SGPT) 12 U/L (8-55); AST (SGOT) 21 U/L (5-34); Albumin 3.9 g/dL (3.5-5.0); Alkaline Phosphatase 43 U/L (40-110); Anion Gap 15 mmol/L (10-20); BUN (Urea Nitrogen) 11 mg/dL (7.0-18.7); Bilirubin, Total 0.3 mg/dL (0.2-1.2); Calc. Creatinine Clearance 0 mL/min (70-130); Calcium 8.4 mg/dL (7.8-10.44); Carbon Dioxide 15 mmol/L (22-29); Chloride 109 mmol/L (98-107); Estimated GFR 98; Glucose 150 mg/dL (70-105); Lipase 41 U/L (8-78); Potassium 3.9 mmol/L (3.5-5.1); Protein, Total 6.9 g/dL (6.0-8.3); Sodium 135 mmol/L (136-145)
[2023-09-06 04:06] LABS: Anisocytosis MODERATE=16-30 cells (100X) (0-5/hpf); Elliptocytes SLIGHT = 2-5 cells (100X) (0-1/hpf); MDiff Complete? YES; Ovalocytes SLIGHT = 2-5 cells (100X) (0-1/hpf); Schistocytes SLIGHT = 2-5 cells (100X) (0-1/hpf); Tear Drops SLIGHT = 2-5 cells (100X) (0-1/hpf)
[2023-09-06 04:07] LABS: Hypochromia SLIGHT = 6-15 cells (100X) (0-5/hpf)
[2023-09-06 04:08] LABS: Platelet Adequacy Comment Appears Adequate
[2023-09-06 04:08] LABS: Bacteria/HPF 1+ HPF (None Seen); CAUTI Indications for Culture Pelvic or flank pain; Mucous/LPF 1+ LPF (<2+); RBC/HPF 0-3 HPF (0-3); Squamous Epithelial 0-3 HPF (0-3); Transitional Epithelial 0-3 HPF (None Seen)
[2023-09-06 04:09] LABS: Urine Culture Reflex Yes Yes
[2023-09-06] MEDS ORDERED: HYDROcodone/Acetaminophen 5/325 mg Tablet ONE (05:57)
[2023-09-06] MEDS ORDERED: cefTRIAXone (ROCEPHIN) 1 GM VIAL ONE (05:57)
[2023-09-06 06:22] LABS: Lactic Acid 2.2 mmol/L (0.5-2.2)
[2023-09-06] MEDS ORDERED: Iopamidol 300 61% 100 ML VIAL FS ONE (13:09)
== END 2023-09-06 08:05 | disposition home or self-care (01) ==
LOC: CSHERS 02:40
DX: N39.0 Urinary tract infection, site not specified (principal); K21.9 Gastro-esophageal reflux disease without esophagitis; Z79.899 Other long term (current) drug therapy
CPT/HCPCS: 74177; 76856; 80053; 81001; 83605; 83690; 84703; 85025; 87086; 96372; 96374; 96375; 96376; J0696; J1885; J2550; Q9967

== ENCOUNTER 2023-09-11 12:19 | Emergency (ER) | payer SELFPAY | END 2023-09-11 13:53 | disposition left against medical advice (07) | LOC: CSHERS 12:19 | DX: R10.84 Generalized abdominal pain (principal); G89.29 Other chronic pain; K21.9 Gastro-esophageal reflux disease without esophagitis | CPT/HCPCS: 99284 ==

== ENCOUNTER 2023-09-12 23:06 | Emergency (ER) | payer OTHER, SELFPAY ==
[2023-09-13] MEDS ORDERED: methylPREDNISolone Sod Succ/PF 125 MG/2 ML VIAL ONE ×2 (01:33→03:45)
[2023-09-13] MEDS ORDERED: Ketorolac Tromethamine 30 MG/ML VIAL ONE (02:23)
== END 2023-09-13 04:10 | disposition home or self-care (01) ==
LOC: CSHERS 23:06
DX: R10.9 Unspecified abdominal pain (principal); K21.9 Gastro-esophageal reflux disease without esophagitis
CPT/HCPCS: 96374; 96375; J1885; J2930

== ENCOUNTER 2023-09-30 03:22 | Emergency (ER) | payer OTHER, SELFPAY ==
[2023-09-30] MEDS ORDERED: Ketorolac Tromethamine 30 MG/ML VIAL ONE (06:37)
[2023-09-30 06:49] LABS: #Eosinphils 0.1 10x3/uL (0.0-0.5); #Monocytes 0.5 10x3/uL (0.0-1.1); #Neutrophils 4.6 10x3/uL (1.5-8.4); %Basophils 0.1 % (0.0-2.0); %Eosinophils 0.7 % (0.0-6.0); %Lymphocytes 27.3 % (18.0-47.0); %Monocytes 7.6 % (0.0-10.0); Hematocrit 30.1 % (34.9-44.5); Hemoglobin 9.5 g/dL (12.0-15.5); Mean Corpuscular HGB CONC 31.6 g/dL (32.0-36.0); Mean Corpuscular Hemoglobin 21.2 pg (27.0-33.0); Mean Corpuscular Volume 67.2 fl (81.6-98.3); Mean Platelet Volume 10.6 fl (7.4-10.4); Platelet Count 421 10x3/uL (150-450); RBC Distribution Width 17.1 % (11.5-14.5); Red Blood Cell (RBC) Count 4.48 10x6/uL (3.90-5.03); White Blood Cell (WBC) Count 7.2 10x3/uL (3.5-10.5)
[2023-09-30 06:59] LABS: BHCG - Serum Negative (NEGATIVE); Pregs Control Background? CLEAR/WHITE (CLR/WHITE); Pregs Control Bar Appear? YES (CONTROL BAR)
[2023-09-30] MEDS ORDERED: Promethazine HCl 12.5 MG in Sodium Chloride 0.9% 100 ML IVPB SCH (07:00)
[2023-09-30 07:04] LABS: ALT (SGPT) 18 U/L (8-55); AST (SGOT) 17 U/L (5-34); Albumin 4.3 g/dL (3.5-5.0); Alkaline Phosphatase 54 U/L (40-110); Anion Gap 14 mmol/L (10-20); BUN (Urea Nitrogen) 7 mg/dL (7.0-18.7); Bilirubin, Total 0.3 mg/dL (0.2-1.2); Calc. Creatinine Clearance 0 mL/min (70-130); Calcium 9.1 mg/dL (7.8-10.44); Carbon Dioxide 22 mmol/L (22-29); Chloride 105 mmol/L (98-107); Estimated GFR 98; Globulin 3.5 g/dL (2.4-3.5); Glucose 101 mg/dL (70-105); Lipase 48 U/L (8-78); Potassium 3.4 mmol/L (3.5-5.1); Protein, Total 7.8 g/dL (6.0-8.3); Sodium 138 mmol/L (136-145)
[2023-09-30] MEDS ORDERED: Morphine 4 MG/ML VIAL ONE (08:42)
== END 2023-09-30 09:32 | disposition home or self-care (01) ==
LOC: CSHERS 03:22
DX: J18.9 Pneumonia, unspecified organism (principal); N83.202 Unspecified ovarian cyst, left side
CPT/HCPCS: 71045; 74177; 80053; 83605; 83690; 84703; 85025; 93005; 96361; 96374; 96375; J1885; J2270; J2550; J3490

== ENCOUNTER 2023-10-10 17:10 | Emergency (ER) | payer MEDICAID, SELFPAY ==
[2023-10-10] MEDS ORDERED: Prochlorperazine 10 MG/2 ML VIAL ONE (17:57)
[2023-10-10 18:37] LABS: BHCG - Serum Negative (NEGATIVE); Pregs Control Background? CLEAR/WHITE (CLR/WHITE); Pregs Control Bar Appear? YES (CONTROL BAR)
[2023-10-10 18:42] LABS: #Monocytes 0.8 10x3/uL (0.0-1.1); #Neutrophils 4.8 10x3/uL (1.5-8.4); %Basophils 0.2 % (0.0-2.0); %Eosinophils 0.4 % (0.0-6.0); %Lymphocytes 44.6 % (18.0-47.0); %Monocytes 7.1 % (0.0-10.0); %Neutrophils 45.4 % (40.0-75.0); Hematocrit 33.8 % (34.9-44.5); Hemoglobin 10.6 g/dL (12.0-15.5); Mean Corpuscular HGB CONC 31.4 g/dL (32.0-36.0); Mean Corpuscular Hemoglobin 20.9 pg (27.0-33.0); Mean Corpuscular Volume 66.5 fl (81.6-98.3); Mean Platelet Volume 10.2 fl (7.4-10.4); Platelet Count 384 10x3/uL (150-450); RBC Distribution Width 18.3 % (11.5-14.5); Red Blood Cell (RBC) Count 5.08 10x6/uL (3.90-5.03); White Blood Cell (WBC) Count 10.5 10x3/uL (3.5-10.5)
[2023-10-10 18:44] LABS: ALT (SGPT) 31 U/L (8-55); AST (SGOT) 49 U/L (5-34); Albumin 4.2 g/dL (3.5-5.0); Alkaline Phosphatase 48 U/L (40-110); Anion Gap 14 mmol/L (10-20); BUN (Urea Nitrogen) 17 mg/dL (7.0-18.7); Bilirubin, Total 0.3 mg/dL (0.2-1.2); Calc. Creatinine Clearance 0 mL/min (70-130); Calcium 8.9 mg/dL (7.8-10.44); Carbon Dioxide 26 mmol/L (22-29); Chloride 101 mmol/L (98-107); Estimated GFR 90; Globulin 3.3 g/dL (2.4-3.5); Glucose 90 mg/dL (70-105); Lipase 85 U/L (8-78); Potassium 3.6 mmol/L (3.5-5.1); Protein, Total 7.5 g/dL (6.0-8.3); Sodium 137 mmol/L (136-145)
[2023-10-10 19:03] LABS: Bilirubin Neg (Negative); Blood, Urine 250 (Negative); Clarity Cloudy (Clear); Glucose, Urine (Dipstick) Normal (Negative); Ketone, Urine Negative (Negative); Leukocyte 500 (Negative); Nitrite Negative (Negative); Protein, Urine (Dipstick) 30 mg/dl (Neg-Trace); Urobilinogen Normal mg/dL (Less than 2)
[2023-10-10] MEDS ORDERED: Ketorolac Tromethamine 30 MG/ML VIAL ONE (19:11)
[2023-10-10 19:18] LABS: Bacteria/HPF 2+ HPF (None Seen); CAUTI Indications for Culture Acute Hematuria; Mucous/LPF 1+ LPF (<2+); RBC/HPF Greater than 50 HPF (0-3); Urine Culture Reflex Yes Yes; WBC/HPF 21-50 HPF (0-3)
[2023-10-10 19:31] LABS: Microcytosis MODERATE=15-30 cells (100X) (0-5/hpf)
[2023-10-10 19:32] LABS: Ovalocytes MODERATE= 6-15 cells (100X) (0-1/hpf)
[2023-10-10 19:35] LABS: Stomatocytes SLIGHT = 2-5 cells (100X) (0-1/hpf)
[2023-10-10 19:36] LABS: Burr Cells SLIGHT = 2-5 cells (100X) (0-1/hpf)
[2023-10-10 19:37] LABS: Platelet Adequacy Comment Appears Adequate
== END 2023-10-10 19:54 | disposition home or self-care (01) ==
LOC: CSHERS 17:10
DX: N39.0 Urinary tract infection, site not specified (principal)
CPT/HCPCS: 80053; 81001; 82274; 83690; 84703; 85025; 87086; 96361; 96374; 96375; J0780; J1885

== ENCOUNTER 2023-10-21 21:13 | Emergency (ER) | payer MEDICAID ==
[2023-10-21 22:04] LABS: #Eosinphils 0.1 10x3/uL (0.0-0.5); #Monocytes 0.6 10x3/uL (0.0-1.1); #Neutrophils 2.6 10x3/uL (1.5-8.4); %Basophils 0.2 % (0.0-2.0); %Lymphocytes 35.2 % (18.0-47.0); %Monocytes 11.8 % (0.0-10.0); %Neutrophils 51.6 % (40.0-75.0); Hematocrit 29.3 % (34.9-44.5); Hemoglobin 9.3 g/dL (12.0-15.5); Mean Corpuscular HGB CONC 31.7 g/dL (32.0-36.0); Mean Corpuscular Hemoglobin 21.1 pg (27.0-33.0); Mean Corpuscular Volume 66.6 fl (81.6-98.3); Platelet Count 393 10x3/uL (150-450); RBC Distribution Width 18.4 % (11.5-14.5); White Blood Cell (WBC) Count 5.1 10x3/uL (3.5-10.5)
[2023-10-21 22:16] LABS: ALT (SGPT) 12 U/L (8-55); AST (SGOT) 15 U/L (5-34); Albumin 4.1 g/dL (3.5-5.0); Alkaline Phosphatase 46 U/L (40-110); Anion Gap 15 mmol/L (10-20); BUN (Urea Nitrogen) 9 mg/dL (7.0-18.7); Bilirubin, Total 0.4 mg/dL (0.2-1.2); Calc. Creatinine Clearance 0 mL/min (70-130); Carbon Dioxide 19 mmol/L (22-29); Chloride 106 mmol/L (98-107); Estimated GFR 109; Globulin 3.2 g/dL (2.4-3.5); Glucose 99 mg/dL (70-105); Potassium 3.4 mmol/L (3.5-5.1); Protein, Total 7.3 g/dL (6.0-8.3); Sodium 137 mmol/L (136-145)
== END 2023-10-21 22:31 | disposition left against medical advice (07) ==
LOC: CSHERS 21:13
DX: K51.90 Ulcerative colitis, unspecified, without complications (principal); K21.9 Gastro-esophageal reflux disease without esophagitis
CPT/HCPCS: 80053; 85025

== ENCOUNTER 2023-11-22 23:36 | Emergency (ER) | payer SELFPAY ==
[2023-11-23] MEDS ORDERED: Ketorolac Tromethamine 30 MG (1 mL) VIAL ONE (00:19)
[2023-11-23 00:46] LABS: #Eosinphils 0.2 10x3/uL (0.0-0.5); #Monocytes 0.8 10x3/uL (0.0-1.1); #Neutrophils 5.4 10x3/uL (1.5-8.4); %Basophils 0.2 % (0.0-2.0); %Eosinophils 2.6 % (0.0-6.0); %Lymphocytes 22.4 % (18.0-47.0); %Monocytes 9.4 % (0.0-10.0); %Neutrophils 64.9 % (40.0-75.0); Hematocrit 32.1 % (34.9-44.5); Mean Corpuscular HGB CONC 31.2 g/dL (32.0-36.0); Mean Corpuscular Hemoglobin 20.7 pg (27.0-33.0); Mean Corpuscular Volume 66.5 fl (81.6-98.3); Platelet Count 402 10x3/uL (150-450); RBC Distribution Width 16.9 % (11.5-14.5); Red Blood Cell (RBC) Count 4.83 10x6/uL (3.90-5.03); White Blood Cell (WBC) Count 8.4 10x3/uL (3.5-10.5)
[2023-11-23 00:48] LABS: BHCG - Serum Negative (NEGATIVE); Pregs Control Background? CLEAR/WHITE (CLR/WHITE); Pregs Control Bar Appear? YES (CONTROL BAR)
[2023-11-23 00:50] LABS: ALT (SGPT) 7 U/L (8-55); AST (SGOT) 15 U/L (5-34); Albumin 4.1 g/dL (3.5-5.0); Alkaline Phosphatase 56 U/L (40-110); Anion Gap 15 mmol/L (10-20); BUN (Urea Nitrogen) 10 mg/dL (7.0-18.7); Bilirubin, Total 0.2 mg/dL (0.2-1.2); Calc. Creatinine Clearance 0 mL/min (70-130); Calcium 9.1 mg/dL (7.8-10.44); Carbon Dioxide 21 mmol/L (22-29); Chloride 105 mmol/L (98-107); Estimated GFR 101; Globulin 4.1 g/dL (2.4-3.5); Glucose 109 mg/dL (70-105); Lipase 24 U/L (8-78); Protein, Total 8.2 g/dL (6.0-8.3); Sodium 138 mmol/L (136-145)
[2023-11-23 00:56] LABS: Troponin I Less than 0.010 ng/mL (< 0.028)
[2023-11-23 01:04] LABS: Bilirubin Neg (Negative); Blood, Urine 10 (Negative); Clarity Slightly Cloudy (Clear); Glucose, Urine (Dipstick) Normal (Negative); Ketone, Urine Negative (Negative); Leukocyte 500 (Negative); Nitrite Negative (Negative); Protein, Urine (Dipstick) 15 mg/dl (Neg-Trace); Urobilinogen Normal mg/dL (Less than 2); pH, Urine 6.5 (5.0-9.0)
[2023-11-23] MEDS ORDERED: Potassium Chloride 20 MEQ TAB ONE (01:05)
[2023-11-23] MEDS ORDERED: Magnesium 2 GM/50 ML BAG (IN WATER) ONE (01:06)
[2023-11-23 01:13] LABS: CAUTI Indications for Culture Pelvic or flank pain; RBC/HPF 0-3 HPF (0-3)
[2023-11-23 01:14] LABS: Bacteria/HPF Rare-Few HPF (None Seen)
[2023-11-23 01:15] LABS: Urine Culture Reflex Yes Yes
[2023-11-23 01:19] LABS: Anisocytosis SLIGHT = 6-15 cells (100X) (0-5/hpf)
[2023-11-23 01:25] LABS: Macrocytosis SLIGHT = 6-15 cells (100X) (0-5/hpf); Microcytosis MODERATE=15-30 cells (100X) (0-5/hpf); Poikilocytosis SLIGHT = 6-15 cells (100X) (0-5/hpf)
[2023-11-23 01:26] LABS: Elliptocytes SLIGHT = 2-5 cells (100X) (0-1/hpf); Ovalocytes SLIGHT = 2-5 cells (100X) (0-1/hpf)
== END 2023-11-23 06:20 | disposition home or self-care (01) ==
LOC: CSHERS 23:36
DX: R07.9 Chest pain, unspecified (principal); R10.9 Unspecified abdominal pain
CPT/HCPCS: 71045; 80053; 81001; 83690; 84484; 84703; 85025; 86140; 87086; 93005; 96374; 96375; J1885; J3475

== ENCOUNTER 2023-12-14 19:45 | Emergency (ER) | payer MEDICAID, SELFPAY ==
[2023-12-14 20:52] LABS: BHCG - Serum Negative (NEGATIVE); Pregs Control Background? CLEAR/WHITE (CLR/WHITE); Pregs Control Bar Appear? YES (CONTROL BAR)
[2023-12-14 20:58] LABS: ALT (SGPT) 23 U/L (8-55); AST (SGOT) 19 U/L (5-34); Albumin 3.7 g/dL (3.5-5.0); Alkaline Phosphatase 45 U/L (40-110); Anion Gap 12 mmol/L (10-20); BUN (Urea Nitrogen) 13 mg/dL (7.0-18.7); Bilirubin, Total 0.2 mg/dL (0.2-1.2); Calc. Creatinine Clearance 0 mL/min (70-130); Calcium 8.5 mg/dL (7.8-10.44); Carbon Dioxide 21 mmol/L (22-29); Chloride 110 mmol/L (98-107); Estimated GFR 105; Globulin 2.8 g/dL (2.4-3.5); Glucose 107 mg/dL (70-105); Potassium 3.7 mmol/L (3.5-5.1); Protein, Total 6.5 g/dL (6.0-8.3); Sodium 139 mmol/L (136-145)
[2023-12-14 21:16] LABS: #Eosinphils 0.1 10x3/uL (0.0-0.5); #Monocytes 0.6 10x3/uL (0.0-1.1); #Neutrophils 4.2 10x3/uL (1.5-8.4); %Basophils 0.1 % (0.0-2.0); %Eosinophils 1.4 % (0.0-6.0); %Lymphocytes 28.6 % (18.0-47.0); %Monocytes 9.1 % (0.0-10.0); %Neutrophils 60.4 % (40.0-75.0); Hematocrit 25.8 % (34.9-44.5); Hemoglobin 8.2 g/dL (12.0-15.5); Mean Corpuscular HGB CONC 31.8 g/dL (32.0-36.0); Mean Corpuscular Hemoglobin 21.2 pg (27.0-33.0); Mean Corpuscular Volume 66.7 fl (81.6-98.3); Mean Platelet Volume 9.4 fl (7.4-10.4); Platelet Count 245 10x3/uL (150-450); RBC Distribution Width 20.5 % (11.5-14.5); Red Blood Cell (RBC) Count 3.87 10x6/uL (3.90-5.03)
[2023-12-14 21:34] LABS: Anisocytosis SLIGHT = 6-15 cells (100X) (0-5/hpf); Schistocytes SLIGHT = 2-5 cells (100X) (0-1/hpf)
[2023-12-14 21:35] LABS: Microcytosis MODERATE=15-30 cells (100X) (0-5/hpf); Poikilocytosis SLIGHT = 6-15 cells (100X) (0-5/hpf)
[2023-12-14 21:36] LABS: Elliptocytes SLIGHT = 2-5 cells (100X) (0-1/hpf); Hypochromia SLIGHT = 6-15 cells (100X) (0-5/hpf); Tear Drops SLIGHT = 2-5 cells (100X) (0-1/hpf)
[2023-12-14 21:37] LABS: Platelet Adequacy Comment Appears Adequate
== END 2023-12-14 21:34 | disposition home or self-care (01) ==
LOC: CSHERS 19:45
DX: R10.9 Unspecified abdominal pain (principal); R11.0 Nausea
CPT/HCPCS: 36415; 80053; 84703; 85025; 99284

== ENCOUNTER 2023-12-21 17:58 | Emergency (ER) | payer MEDICAID, SELFPAY ==
[2023-12-21] MEDS ORDERED: Famotidine 20 MG TAB ONE (19:07)
[2023-12-21] MEDS ORDERED: Acetaminophen 500 MG TAB ONE (19:07)
[2023-12-21 19:21] LABS: #Eosinphils 0.1 10x3/uL (0.0-0.5); #Monocytes 0.7 10x3/uL (0.0-1.1); #Neutrophils 4.2 10x3/uL (1.5-8.4); %Basophils 0.4 % (0.0-2.0); %Eosinophils 0.6 % (0.0-6.0); %Lymphocytes 35.9 % (18.0-47.0); %Monocytes 9.1 % (0.0-10.0); %Neutrophils 53.6 % (40.0-75.0); Hemoglobin 9.3 g/dL (12.0-15.5); Mean Corpuscular Hemoglobin 21.1 pg (27.0-33.0); Mean Platelet Volume 10.2 fl (7.4-10.4); Platelet Count 292 10x3/uL (150-450); RBC Distribution Width 19.8 % (11.5-14.5); Red Blood Cell (RBC) Count 4.41 10x6/uL (3.90-5.03); White Blood Cell (WBC) Count 7.8 10x3/uL (3.5-10.5)
[2023-12-21 19:26] LABS: ALT (SGPT) 14 U/L (8-55); AST (SGOT) 13 U/L (5-34); Albumin 4.1 g/dL (3.5-5.0); Alkaline Phosphatase 53 U/L (40-110); Anion Gap 15 mmol/L (10-20); BUN (Urea Nitrogen) 9 mg/dL (7.0-18.7); Bilirubin, Total 0.2 mg/dL (0.2-1.2); Calc. Creatinine Clearance 0 mL/min (70-130); Calcium 9.7 mg/dL (7.8-10.44); Carbon Dioxide 20 mmol/L (22-29); Chloride 108 mmol/L (98-107); Estimated GFR 104; Globulin 3.8 g/dL (2.4-3.5); Glucose 106 mg/dL (70-105); Lipase 24 U/L (8-78); Potassium 3.1 mmol/L (3.5-5.1); Protein, Total 7.9 g/dL (6.0-8.3); Sodium 140 mmol/L (136-145)
== END 2023-12-21 20:42 | disposition home or self-care (01) ==
LOC: CSHERS 17:58
DX: R10.9 Unspecified abdominal pain (principal)
CPT/HCPCS: 36415; 80053; 83690; 85025; 99283

== ENCOUNTER 2024-01-23 20:25 | Observation (INO) | payer MEDICAID ==
[2024-01-23] MEDS ORDERED: fentaNYL 50 mcg/mL 1 mL Vial ONE (21:14)
[2024-01-23 21:25] LABS: ALT (SGPT) 103 U/L (8-55); AST (SGOT) 40 U/L (5-34); Albumin 4.4 g/dL (3.5-5.0); Alkaline Phosphatase 30 U/L (40-110); Anion Gap 15 mmol/L (10-20); BUN (Urea Nitrogen) 15 mg/dL (7.0-18.7); Bilirubin, Total 0.5 mg/dL (0.2-1.2); Calc. Creatinine Clearance 0 mL/min (70-130); Calcium 8.8 mg/dL (7.8-10.44); Carbon Dioxide 23 mmol/L (22-29); Chloride 103 mmol/L (98-107); Estimated GFR 110; Globulin 2.2 g/dL (2.4-3.5); Glucose 101 mg/dL (70-105); Potassium 3.4 mmol/L (3.5-5.1); Protein, Total 6.6 g/dL (6.0-8.3); Sodium 138 mmol/L (136-145)
[2024-01-23 21:26] LABS: #Monocytes 0.6 10x3/uL (0.0-1.1); #Neutrophils 7.2 10x3/uL (1.5-8.4); %Basophils 0.2 % (0.0-2.0); %Eosinophils 0.3 % (0.0-6.0); %Lymphocytes 20.6 % (18.0-47.0); %Monocytes 5.5 % (0.0-10.0); %Neutrophils 70.4 % (40.0-75.0); Hematocrit 29.5 % (34.9-44.5); Hemoglobin 9.2 g/dL (12.0-15.5); Mean Corpuscular HGB CONC 31.2 g/dL (32.0-36.0); Mean Corpuscular Hemoglobin 22.4 pg (27.0-33.0); Mean Corpuscular Volume 71.8 fl (81.6-98.3); Mean Platelet Volume 10.5 fl (7.4-10.4); Platelet Count 190 10x3/uL (150-450); RBC Distribution Width 23.9 % (11.5-14.5); Red Blood Cell (RBC) Count 4.11 10x6/uL (3.90-5.03); White Blood Cell (WBC) Count 10.2 10x3/uL (3.5-10.5)
[2024-01-23 21:29] LABS: Troponin I Less than 0.010 ng/mL (< 0.028)
[2024-01-23] MEDS ORDERED: HYDROmorphone 0.5 MG/0.5 ML SYRINGE ONE (23:35)
[2024-01-24] MEDS ORDERED: HYDROmorphone 0.5 MG/0.5 ML SYRINGE ONE (03:50)
[2024-01-24] MEDS ORDERED: Iopamidol 370 76% 100 ML VIAL ONE (08:00)
[2024-01-24 08:25] LABS: #Monocytes 0.7 10x3/uL (0.0-1.1); #Neutrophils 5.5 10x3/uL (1.5-8.4); %Basophils 0.2 % (0.0-2.0); %Eosinophils 0.3 % (0.0-6.0); %Lymphocytes 25.1 % (18.0-47.0); %Monocytes 7.8 % (0.0-10.0); %Neutrophils 64.2 % (40.0-75.0); Platelet Count 193 10x3/uL (150-450)
[2024-01-24 08:36] LABS: BHCG - Serum Negative (NEGATIVE); Pregs Control Background? CLEAR/WHITE (CLR/WHITE); Pregs Control Bar Appear? YES (CONTROL BAR)
[2024-01-24 08:41] LABS: ALT (SGPT) 85 U/L (8-55); AST (SGOT) 29 U/L (5-34); Albumin 4.2 g/dL (3.5-5.0); Alkaline Phosphatase 31 U/L (40-110); Anion Gap 15 mmol/L (10-20); BUN (Urea Nitrogen) 11 mg/dL (7.0-18.7); Bilirubin, Total 0.5 mg/dL (0.2-1.2); Calc. Creatinine Clearance 0 mL/min (70-130); Calcium 9.1 mg/dL (7.8-10.44); Carbon Dioxide 24 mmol/L (22-29); Chloride 103 mmol/L (98-107); Estimated GFR 119; Globulin 2.4 g/dL (2.4-3.5); Glucose 80 mg/dL (70-105); Potassium 3.9 mmol/L (3.5-5.1); Protein, Total 6.6 g/dL (6.0-8.3); Sodium 138 mmol/L (136-145)
[2024-01-24] MEDS ORDERED: Vancomycin 1 GM VIAL ONE (08:43)
[2024-01-24] MEDS ORDERED: Enoxaparin 80 MG (0.8 mL) SYRINGE ONE (08:43)
[2024-01-24] MEDS ORDERED: cefTRIAXone (ROCEPHIN) 2 GM VIAL ONE (08:43)
[2024-01-24 08:46] LABS: Troponin I Less than 0.010 ng/mL (< 0.028)
[2024-01-24 09:08] LABS: Platelet Adequacy Comment Appears Adequate; Poikilocytosis SLIGHT = 6-15 cells (100X) (0-5/hpf)
[2024-01-24 09:09] LABS: Ovalocytes SLIGHT = 2-5 cells (100X) (0-1/hpf)
[2024-01-24 09:10] LABS: PTT 27.3 sec (22.0-33.0); Prothrombin Time 10.9 sec (9.5-12.1)
[2024-01-24 09:12] LABS: Hematocrit 28.5 % (34.9-44.5); Hemoglobin 9.1 g/dL (12.0-15.5); Mean Corpuscular HGB CONC 31.9 g/dL (32.0-36.0); Mean Corpuscular Hemoglobin 22.9 pg (27.0-33.0); Mean Corpuscular Volume 71.8 fl (81.6-98.3); RBC Distribution Width 23.5 % (11.5-14.5); Red Blood Cell (RBC) Count 3.97 10x6/uL (3.90-5.03)
[2024-01-24] MEDS ORDERED: fentaNYL 50 mcg/mL 1 mL Vial ONE (09:37)
[2024-01-24] MEDS ORDERED: Moisturizing Cream (Eucerin) 113 GM JAR TOP PRN (11:34)
[2024-01-24] MEDS ORDERED: Benzonatate 100 MG CAP PO PRN (11:34)
[2024-01-24] MEDS ORDERED: Sodium Chloride 0.65% Nasal 44 ML BOT EA NARE PRN (11:34)
[2024-01-24] MEDS ORDERED: Artificial Tear Sol 15 ML BOT EA EYE PRN (11:34)
[2024-01-24] MEDS ORDERED: GUAIFENESIN SF SOLN 200 MG/10 ML UDCUP PO PRN (11:34)
[2024-01-24] MEDS ORDERED: Acetaminophen 500 MG TAB PO PRN (11:34)
[2024-01-24] MEDS ORDERED: Communication Order-Pharmacy FS SCH (11:34)
[2024-01-24] MEDS: Promethazine HCl 25 MG, Admixture Fee 1 EACH in Sodium Chloride 0.9% 50 ML IVPB SCH ×2 (14:14)
[2024-01-24] MEDS: Dicyclomine 10 MG CAP PO SCH (14:21)
[2024-01-24] MEDS: Morphine 4 MG/ML VIAL SLOW IVP PRN (14:21)
[2024-01-24] MEDS: Ferrous Sulfate 325 MG TAB PO SCH (14:21)
[2024-01-24] MEDS: Cefepime 2 GM in Sodium Chloride 0.9% 100 ML IVPB SCH (14:22)
[2024-01-24 14:54] VITALS: BMI 23.2
[2024-01-24 14:57] LABS: Lactic Acid 2.4 mmol/L (0.5-2.2)
[2024-01-24] MEDS: Promethazine 25 MG TAB PO PRN (15:18)
[2024-01-24] MEDS: Clindamycin/D5W 900 MG in Premix 1 BAG IVPB SCH (15:18)
[2024-01-24] MEDS: Vancomycin HCl 750 MG in Sodium Chloride 0.9% 250 ML 250 ML IVPB SCH (18:31)
[2024-01-24] MEDS ORDERED: Morphine 2 MG/ML VIAL SLOW IVP PRN ×2 (19:45→19:48)
[2024-01-24] MEDS ORDERED: Morphine IR Tab 15 MG TAB PO PRN (19:46)
[2024-01-24] MEDS: VANCOMYCIN 2 GRAM/400 ML BAG IVPB SCH (19:58)
[2024-01-24] MEDS: Apixaban 5 MG TAB PO SCH (21:39)
[2024-01-24] MEDS: Famotidine 20 MG TAB PO SCH (21:40)
[2024-01-24] MEDS: Acetaminophen 500 MG TAB PO SCH (21:40)
[2024-01-24] MEDS: Mesalamine DR 400 mg Capsule PO SCH (22:12)
[2024-01-24] MEDS: Morphine 2 MG/ML VIAL SLOW IVP PRN (22:14)
[2024-01-24] MEDS ORDERED: Vancomycin HCl 750 MG in Sodium Chloride 0.9% 250 ML 250 ML IVPB SCH (23:00)
[2024-01-25] MEDS: traMADol HCl 50 MG TAB PO PRN (02:17)
[2024-01-25 03:38] LABS: #Monocytes 0.5 10x3/uL (0.0-1.1); #Neutrophils 2.7 10x3/uL (1.5-8.4); %Basophils 0.4 % (0.0-2.0); %Eosinophils 0.8 % (0.0-6.0); %Lymphocytes 32.5 % (18.0-47.0); %Monocytes 10.3 % (0.0-10.0); Hematocrit 26.4 % (34.9-44.5); Hemoglobin 8.3 g/dL (12.0-15.5); Mean Corpuscular HGB CONC 31.4 g/dL (32.0-36.0); Mean Corpuscular Hemoglobin 22.7 pg (27.0-33.0); Mean Corpuscular Volume 72.1 fl (81.6-98.3); Mean Platelet Volume 9.1 fl (7.4-10.4); Platelet Count 190 10x3/uL (150-450); RBC Distribution Width 23.3 % (11.5-14.5); Red Blood Cell (RBC) Count 3.66 10x6/uL (3.90-5.03); White Blood Cell (WBC) Count 5.1 10x3/uL (3.5-10.5)
[2024-01-25 03:46] LABS: ALT (SGPT) 57 U/L (8-55); AST (SGOT) 18 U/L (5-34); Albumin 3.6 g/dL (3.5-5.0); Alkaline Phosphatase 28 U/L (40-110); Bilirubin, Direct 0.1 mg/dL (0.1-0.3); Bilirubin, Total 0.2 mg/dL (0.2-1.2); Protein, Total 5.9 g/dL (6.0-8.3)
[2024-01-25 03:52] LABS: Anion Gap 10 mmol/L (10-20); BUN (Urea Nitrogen) 9 mg/dL (7.0-18.7); Calc. Creatinine Clearance 105 mL/min (70-130); Calcium 8.1 mg/dL (7.8-10.44); Carbon Dioxide 24 mmol/L (22-29); Chloride 107 mmol/L (98-107); Estimated GFR 121; Glucose 93 mg/dL (70-105); Potassium 3.7 mmol/L (3.5-5.1); Sodium 137 mmol/L (136-145)
[2024-01-25] MEDS ORDERED: HYDROcodone/Acetaminophen 5/325 mg Tablet PO PRN (07:00)
[2024-01-25 10:07] LABS: Vancomycin, Trough 14.9 ug/mL
[2024-01-25 16:41] VITALS: BP 156/90; TEMP 98.3
[2024-01-31] MEDS ORDERED: Apixaban 5 MG TAB PO SCH (21:00)
== END 2024-01-25 21:48 | disposition left against medical advice (07) ==
LOC: CSHERS 20:25 → CSHERHOLD 01-24 11:42 → CSHTELE 01-24 13:38
PROVIDERS: ADMIT Family Medicine; ATTEND Family Medicine
DX: L03.114 Cellulitis of left upper limb (principal); E87.20 Acidosis, unspecified; I82.621 Acute embolism and thrombosis of deep veins of right upper extremity; K51.90 Ulcerative colitis, unspecified, without complications; R74.01 Elevation of levels of liver transaminase levels; D64.9 Anemia, unspecified; R79.89 Other specified abnormal findings of blood chemistry; R07.81 Pleurodynia; Z88.5 Allergy status to narcotic agent; Z88.2 Allergy status to sulfonamides; Z88.0 Allergy status to penicillin; Z88.1 Allergy status to other antibiotic agents; Z88.8 Allergy status to other drugs, medicaments and biological substances
CPT/HCPCS: 36415; 71045; 71275; 80048; 80053; 80076; 80202; 83605; 83880; 84145; 84484; 84703; 85025; 85610; 85730; 86140; 87040; 93005; 93010; 93970; 96365; 96366; 96367; 96372; 96375; 96376; G0378; J0692; J0696; J1170; J1650; J2270; J2272; J2550; J3010; J3370; J3490; J7050; Q0169; Q9967

== ENCOUNTER 2024-02-16 21:35 | Emergency (ER) | payer MEDICAID ==
[2024-02-16] MEDS ORDERED: fentaNYL 50 mcg/mL 1 mL Vial ONE (22:15)
[2024-02-16] MEDS ORDERED: Promethazine 25 MG TAB ONE (22:15)
[2024-02-17 00:22] LABS: #Basophils 0.02 10x3/uL (0.0-0.2); #Monocytes 0.25 10x3/uL (0.0-1.1); #Neutrophils 9.74 10x3/uL (1.5-8.4); %Basophils 0.2 % (0.0-2.0); %Neutrophils 79.6 % (40.0-75.0); Hematocrit 29.1 % (34.9-44.5); Hemoglobin 9.1 g/dL (12.0-15.5); Mean Corpuscular HGB CONC 31.3 g/dL (32.0-36.0); Mean Corpuscular Hemoglobin 23.2 pg (27.0-33.0); Mean Corpuscular Volume 74.2 fl (81.6-98.3); Mean Platelet Volume 9.2 fl (7.4-10.4); Platelet Count 272 10x3/uL (150-450); RBC Distribution Width 19.6 % (11.5-14.5); Red Blood Cell (RBC) Count 3.92 10x6/uL (3.90-5.03); White Blood Cell (WBC) Count 12.2 10x3/uL (3.5-10.5)
[2024-02-17 00:23] LABS: BHCG - Serum Negative (NEGATIVE); Pregs Control Background? CLEAR/WHITE (CLR/WHITE); Pregs Control Bar Appear? YES (CONTROL BAR)
[2024-02-17 00:33] LABS: ALT (SGPT) 21 U/L (8-55); AST (SGOT) 18 U/L (5-34); Albumin 4.1 g/dL (3.5-5.0); Alkaline Phosphatase 34 U/L (40-110); Anion Gap 15 mmol/L (10-20); BUN (Urea Nitrogen) 7 mg/dL (7.0-18.7); Bilirubin, Total 0.2 mg/dL (0.2-1.2); Calc. Creatinine Clearance 0 mL/min (70-130); Calcium 8.8 mg/dL (7.8-10.44); Carbon Dioxide 20 mmol/L (22-29); Chloride 108 mmol/L (98-107); Estimated GFR 110; Globulin 2.8 g/dL (2.4-3.5); Glucose 115 mg/dL (70-105); Lipase 35 U/L (8-78); Potassium 4.1 mmol/L (3.5-5.1); Protein, Total 6.9 g/dL (6.0-8.3); Sodium 139 mmol/L (136-145)
[2024-02-17 00:40] LABS: Anisocytosis SLIGHT = 6-15 cells (100X) (0-5/hpf); Microcytosis SLIGHT = 6-15 cells (100X) (0-5/hpf); Ovalocytes SLIGHT = 2-5 cells (100X) (0-1/hpf); Polychromasia SLIGHT = 2-3 cells (100X) (0-2/hpf); Tear Drops SLIGHT = 2-5 cells (100X) (0-1/hpf)
[2024-02-17 00:41] LABS: Elliptocytes SLIGHT = 2-5 cells (100X) (0-1/hpf); Platelet Adequacy Comment Appears Adequate
[2024-02-17] MEDS ORDERED: fentaNYL 50 mcg/mL 1 mL Vial ONE (00:56)
[2024-02-17] MEDS ORDERED: methylPREDNISolone Sod Succ/PF 125 MG/2 ML VIAL ONE (01:18)
[2024-02-17] MEDS ORDERED: LevoFLOXacin D5W 500 mg (100 mL) BAG ONE (01:41)
== END 2024-02-17 03:17 | disposition home or self-care (01) ==
LOC: CSHERS 21:35
DX: K51.90 Ulcerative colitis, unspecified, without complications (principal)
CPT/HCPCS: 36415; 83605; 83690; 84703; J1956; J2930; J3010; Q0169

== ENCOUNTER 2024-05-25 20:24 | Emergency (ER) | payer OTHER ==
[2024-05-25] MEDS ORDERED: Promethazine 25 MG TAB ONE (21:33)
[2024-05-25] MEDS ORDERED: Promethazine HCl 25 MG/ML VIAL IM SCH (21:45)
== END 2024-05-25 20:43 | disposition home or self-care (01) ==
LOC: CSHERS 20:24
DX: J06.9 Acute upper respiratory infection, unspecified (principal); R11.2 Nausea with vomiting, unspecified; I10 Essential (primary) hypertension
CPT/HCPCS: 99283; J2550; Q0169

== ENCOUNTER 2024-06-02 09:30 | Emergency (ER) | payer OTHER ==
[2024-06-02] MEDS ORDERED: Dicyclomine 20 MG/2 ML VIAL ONE (10:06)
[2024-06-02] MEDS ORDERED: Acetaminophen 325 MG TAB ONE (10:06)
[2024-06-02] MEDS ORDERED: Promethazine HCl 25 MG in Sodium Chloride 0.9% 50 ML IVPB SCH (10:30)
[2024-06-02 11:02] LABS: #Basophils 0.02 10x3/uL (0.0-0.2); #Eosinphils 0.11 10x3/uL (0.0-0.5); #Monocytes 0.26 10x3/uL (0.0-1.1); %Basophils 0.3 % (0.0-2.0); %Eosinophils 1.8 % (0.0-6.0); %Lymphocytes 26.3 % (18.0-47.0); %Monocytes 4.2 % (0.0-10.0); %Neutrophils 67.2 % (40.0-75.0); Hemoglobin 11.7 g/dL (12.0-15.5); Mean Corpuscular HGB CONC 32.5 g/dL (32.0-36.0); Mean Corpuscular Hemoglobin 22.9 pg (27.0-33.0); Mean Corpuscular Volume 70.6 fL (81.6-98.3); Mean Platelet Volume 8.5 fL (7.4-10.4); Platelet Count 394 10x3/uL (150-450); RBC Distribution Width 14.4 % (11.5-14.5); White Blood Cell (WBC) Count 6.2 10x3/uL (3.5-10.5)
[2024-06-02 11:05] LABS: ALT (SGPT) 12 U/L (8-55); AST (SGOT) 26 U/L (5-34); Albumin 4.2 g/dL (3.5-5.0); Alkaline Phosphatase 61 U/L (40-110); Anion Gap 14 mmol/L (10-20); BUN (Urea Nitrogen) 10 mg/dL (7.0-18.7); Bilirubin, Total 0.4 mg/dL (0.2-1.2); Calc. Creatinine Clearance 0 mL/min (70-130); Calcium 9.7 mg/dL (7.8-10.44); Carbon Dioxide 24 mmol/L (22-29); Chloride 105 mmol/L (98-107); Estimated GFR 99; Globulin 4.2 g/dL (2.4-3.5); Glucose 90 mg/dL (70-105); Lipase 40 U/L (8-78); Potassium 3.1 mmol/L (3.5-5.1); Protein, Total 8.4 g/dL (6.0-8.3); Sodium 140 mmol/L (136-145)
[2024-06-02] MEDS ORDERED: Potassium Chloride 20 MEQ TAB ONE (11:35)
[2024-06-02 15:06] LABS: Anisocytosis MODERATE=16-30 cells (100X) (0-5/hpf); Poikilocytosis SLIGHT = 6-15 cells (100X) (0-5/hpf)
[2024-06-02 15:07] LABS: Microcytosis SLIGHT = 6-15 cells (100X) (0-5/hpf)
[2024-06-02 15:08] LABS: Ovalocytes SLIGHT = 2-5 cells (100X) (0-1/hpf); Schistocytes SLIGHT = 2-5 cells (100X) (0-1/hpf); Tear Drops SLIGHT = 2-5 cells (100X) (0-1/hpf)
[2024-06-02 15:09] LABS: Platelet Adequacy Comment Appears Adequate
== END 2024-06-02 11:35 | disposition home or self-care (01) ==
LOC: CSHERS 09:30
DX: R10.9 Unspecified abdominal pain (principal); G89.29 Other chronic pain; E87.6 Hypokalemia; I10 Essential (primary) hypertension
CPT/HCPCS: 80053; 83605; 83690; 85025; 96372; 96374; J2550

== ENCOUNTER 2024-06-12 11:11 | Emergency (ER) | payer OTHER ==
[2024-06-12 12:09] LABS: #Basophils 0.01 10x3/uL (0.0-0.2); #Eosinphils 0.09 10x3/uL (0.0-0.5); #Monocytes 0.25 10x3/uL (0.0-1.1); #Neutrophils 1.94 10x3/uL (1.5-8.4); %Basophils 0.2 % (0.0-2.0); %Eosinophils 2.1 % (0.0-6.0); %Monocytes 5.8 % (0.0-10.0); %Neutrophils 44.7 % (40.0-75.0); Hematocrit 30.9 % (34.9-44.5); Mean Corpuscular HGB CONC 32.4 g/dL (32.0-36.0); Mean Platelet Volume 8.7 fL (7.4-10.4); Platelet Count 307 10x3/uL (150-450); RBC Distribution Width 14.5 % (11.5-14.5); Red Blood Cell (RBC) Count 4.35 10x6/uL (3.90-5.03); White Blood Cell (WBC) Count 4.3 10x3/uL (3.5-10.5)
[2024-06-12 12:16] LABS: BHCG - Serum Negative (NEGATIVE); Pregs Control Background? CLEAR/WHITE (CLR/WHITE); Pregs Control Bar Appear? YES (CONTROL BAR)
[2024-06-12 12:28] LABS: Influenza A by NAA Not Detected (NotDetected); Influenza B by NAA Not Detected (NotDetected); SARS-CoV-2 NAA Rapid Test Not Detected (NotDetected)
[2024-06-12 12:32] LABS: ALT (SGPT) 11 U/L (8-55); AST (SGOT) 22 U/L (5-34); Albumin 3.8 g/dL (3.5-5.0); Alkaline Phosphatase 54 U/L (40-110); Anion Gap 11 mmol/L (10-20); BUN (Urea Nitrogen) 8 mg/dL (7.0-18.7); Bilirubin, Total 0.3 mg/dL (0.2-1.2); Calc. Creatinine Clearance 0 mL/min (70-130); Calcium 9.2 mg/dL (7.8-10.44); Carbon Dioxide 24 mmol/L (22-29); Chloride 108 mmol/L (98-107); Estimated GFR 120; Globulin 3.2 g/dL (2.4-3.5); Glucose 87 mg/dL (70-105); Lipase 46 U/L (8-78); Magnesium 1.7 mg/dL (1.6-2.6); Sodium 140 mmol/L (136-145); Troponin I Less than 0.010 ng/mL (< 0.028)
[2024-06-12 13:13] LABS: Microcytosis SLIGHT = 6-15 cells (100X) (0-5/hpf); Ovalocytes SLIGHT = 2-5 cells (100X) (0-1/hpf); Platelet Adequacy Comment Appears Adequate; Poikilocytosis SLIGHT = 6-15 cells (100X) (0-5/hpf); Tear Drops SLIGHT = 2-5 cells (100X) (0-1/hpf)
[2024-06-12] MEDS ORDERED: Acetaminophen 500 MG TAB ONE (14:24)
[2024-06-12] MEDS ORDERED: Potassium Chloride 20 MEQ TAB ONE (14:43)
== END 2024-06-12 14:55 | disposition home or self-care (01) ==
LOC: CSHERS 11:11
DX: R51.9 Headache, unspecified (principal); Z55.0 Illiteracy and low-level literacy
CPT/HCPCS: 70450; 80053; 83690; 83735; 84484; 84703; 85025; 93005

== ENCOUNTER 2024-06-16 14:19 | Emergency (ER) | payer OTHER ==
[2024-06-16 15:47] LABS: Bilirubin Neg (Negative); Blood, Urine Negative (Negative); Glucose, Urine (Dipstick) Normal (Negative); Ketone, Urine 15 mg/dL (Negative); Leukocyte 25 (Negative); Nitrite Positive (Negative); Protein, Urine (Dipstick) 15 mg/dl (Neg-Trace); Urobilinogen Normal mg/dL (Less than 2)
[2024-06-16 15:53] LABS: Clarity Hazy (Clear)
[2024-06-16 15:55] LABS: Pregnancy Test - Urine (BHCG) Negative (Negative); Pregu Control Background? CLEAR/WHITE (CLR/WHITE); Pregu Control Bar Appear? YES (CONTROL BAR)
[2024-06-16 16:02] LABS: Bacteria/HPF 4+ HPF (None Seen); CAUTI Indications for Culture Pelvic or flank pain; RBC/HPF None Seen HPF (0-3); Squamous Epithelial 0-3 HPF (0-3); Urine Culture Reflex No No; WBC/HPF 0-3 HPF (0-3)
[2024-06-16] MEDS ORDERED: KETAMINE 100 MG/ML (5ML VIAL) ONE (16:17)
[2024-06-16 16:28] LABS: #Basophils 0.01 10x3/uL (0.0-0.2); #Eosinphils 0.09 10x3/uL (0.0-0.5); #Monocytes 0.52 10x3/uL (0.0-1.1); #Neutrophils 4.69 10x3/uL (1.5-8.4); %Basophils 0.1 % (0.0-2.0); %Eosinophils 1.3 % (0.0-6.0); %Monocytes 7.6 % (0.0-10.0); %Neutrophils 68.7 % (40.0-75.0); Hematocrit 30.2 % (34.9-44.5); Mean Corpuscular HGB CONC 33.1 g/dL (32.0-36.0); Mean Corpuscular Hemoglobin 23.3 pg (27.0-33.0); Mean Corpuscular Volume 70.2 fL (81.6-98.3); Mean Platelet Volume 10.6 fL (7.4-10.4); Platelet Count 340 10x3/uL (150-450); RBC Distribution Width 14.9 % (11.5-14.5); White Blood Cell (WBC) Count 6.8 10x3/uL (3.5-10.5)
[2024-06-16 16:39] LABS: ALT (SGPT) 11 U/L (8-55); AST (SGOT) 18 U/L (5-34); Albumin 3.9 g/dL (3.5-5.0); Alkaline Phosphatase 59 U/L (40-110); Anion Gap 15 mmol/L (10-20); BUN (Urea Nitrogen) 8 mg/dL (7.0-18.7); Bilirubin, Total 0.3 mg/dL (0.2-1.2); Calc. Creatinine Clearance 0 mL/min (70-130); Calcium 9.2 mg/dL (7.8-10.44); Carbon Dioxide 23 mmol/L (22-29); Chloride 105 mmol/L (98-107); Estimated GFR 108; Globulin 3.4 g/dL (2.4-3.5); Glucose 87 mg/dL (70-105); Lipase 38 U/L (8-78); Potassium 3.1 mmol/L (3.5-5.1); Protein, Total 7.3 g/dL (6.0-8.3); Sodium 140 mmol/L (136-145)
[2024-06-16] MEDS ORDERED: Promethazine HCl 25 MG in Sodium Chloride 0.9% 50 ML IVPB SCH (16:45)
[2024-06-16] MEDS ORDERED: Potassium Bicarbonate/Cit Ac 25 MEQ TAB ONE (17:36)
[2024-06-16] MEDS ORDERED: SUMAtriptan Succinate 6 MG/0.5 ML VIAL ONE (18:45)
[2024-06-16] MEDS ORDERED: Acetaminophen 500 MG TAB ONE (18:45)
[2024-06-16 19:10] LABS: Magnesium 1.8 mg/dL (1.6-2.6)
[2024-06-16] MEDS ORDERED: Magnesium 2 GM/50 ML BAG (IN WATER) ONE (19:22)
[2024-06-16] MEDS ORDERED: Dexamethasone 10 MG/ML VIAL ONE (20:32)
[2024-06-16] MEDS ORDERED: Ibuprofen 200 MG TAB ONE (20:32)
== END 2024-06-16 21:47 | disposition home or self-care (01) ==
LOC: CSHERS 14:19
DX: N39.0 Urinary tract infection, site not specified (principal); G43.909 Migraine, unspecified, not intractable, without status migrainosus; E87.6 Hypokalemia; K51.90 Ulcerative colitis, unspecified, without complications; I10 Essential (primary) hypertension
CPT/HCPCS: 80053; 81001; 81025; 83690; 83735; 85025; 87077; 87086; 87186; 96372; 96374; 96375; J1100; J2550; J3030; J3475

== ENCOUNTER 2024-06-18 10:20 | Emergency (ER) | payer OTHER ==
[2024-06-18] MEDS ORDERED: Ketorolac Tromethamine 30 MG (1 mL) VIAL ONE (11:44)
[2024-06-18] MEDS ORDERED: Dexamethasone 10 MG/ML VIAL ONE (11:44)
[2024-06-18] MEDS ORDERED: Promethazine HCl 25 MG, Admixture Fee 1 EACH in Sodium Chloride 0.9% 50 ML IVPB SCH (12:00)
[2024-06-18] MEDS ORDERED: SUMAtriptan Succinate 6 MG/0.5 ML VIAL ONE (13:16)
[2024-06-18] MEDS ORDERED: Magnesium 2 GM/50 ML BAG (IN WATER) ONE (13:17)
[2024-06-18] MEDS ORDERED: Valproate Sodium 500 MG in Sodium Chloride 0.9% 100 ML IVPB SCH (16:00)
== END 2024-06-18 16:46 | disposition home or self-care (01) ==
LOC: CSHERS 10:20
DX: R51.9 Headache, unspecified (principal); I10 Essential (primary) hypertension
CPT/HCPCS: 70450; 96372; 96374; 96375; J1100; J1885; J2550; J3030; J3475

== ENCOUNTER 2024-06-20 18:13 | Emergency (ER) | payer OTHER ==
[2024-06-20] MEDS ORDERED: Magnesium 2 GM/50 ML BAG (IN WATER) ONE (19:17)
[2024-06-20] MEDS ORDERED: Acetaminophen 500 MG TAB ONE (19:17)
[2024-06-20] MEDS ORDERED: Prochlorperazine 10 MG/2 ML VIAL ONE (19:17)
[2024-06-21] MEDS ORDERED: Acetaminophen 500 MG TAB ONE (03:45)
== END 2024-06-20 19:31 | disposition home or self-care (01) ==
LOC: CSHERS 18:13
DX: R51.9 Headache, unspecified (principal); R29.700 NIHSS score 0; I10 Essential (primary) hypertension; J18.9 Pneumonia, unspecified organism; I30.9 Acute pericarditis, unspecified; K51.90 Ulcerative colitis, unspecified, without complications; Z55.6 Problems related to health literacy
CPT/HCPCS: 36416; 99283; J0780; J1100; J2550; J3030; J3360; J3475

== ENCOUNTER 2024-06-21 03:07 | Observation (INO) | payer OTHER ==
[2024-06-21 04:21] LABS: Bilirubin Neg (Negative); Blood, Urine Negative (Negative); Clarity Clear (Clear); Glucose, Urine (Dipstick) Normal (Negative); Ketone, Urine Negative (Negative); Leukocyte 100 (Negative); Nitrite Negative (Negative); Protein, Urine (Dipstick) Negative (Neg-Trace); Urobilinogen Normal mg/dL (Less than 2)
[2024-06-21 04:33] LABS: CAUTI Indications for Culture Pelvic or flank pain; RBC/HPF 0-3 HPF (0-3); Squamous Epithelial 0-3 HPF (0-3)
[2024-06-21 04:34] LABS: Bacteria/HPF 3+ HPF (None Seen); Trichomonas/HPF Rare HPF (None Seen)
[2024-06-21 04:37] LABS: Urine Culture Reflex No No
[2024-06-21 04:45] LABS: BHCG - Serum Negative (NEGATIVE); Pregs Control Background? CLEAR/WHITE (CLR/WHITE); Pregs Control Bar Appear? YES (CONTROL BAR)
[2024-06-21 04:49] LABS: #Monocytes 0.13 10x3/uL (0.0-1.1); #Neutrophils 8.07 10x3/uL (1.5-8.4); %Lymphocytes 11.1 % (18.0-47.0); %Monocytes 1.4 % (0.0-10.0); %Neutrophils 86.7 % (40.0-75.0); Hemoglobin 11.1 g/dL (12.0-15.5); Mean Corpuscular HGB CONC 32.6 g/dL (32.0-36.0); Mean Corpuscular Hemoglobin 22.7 pg (27.0-33.0); Mean Corpuscular Volume 69.7 fL (81.6-98.3); Mean Platelet Volume 9.1 fL (7.4-10.4); Platelet Count 331 10x3/uL (150-450); RBC Distribution Width 14.9 % (11.5-14.5); Red Blood Cell (RBC) Count 4.88 10x6/uL (3.90-5.03); White Blood Cell (WBC) Count 9.3 10x3/uL (3.5-10.5)
[2024-06-21 04:55] LABS: ALT (SGPT) 16 U/L (8-55); AST (SGOT) 14 U/L (5-34); Albumin 4.1 g/dL (3.5-5.0); Alkaline Phosphatase 65 U/L (40-110); Anion Gap 16 mmol/L (10-20); BUN (Urea Nitrogen) 10 mg/dL (7.0-18.7); Bilirubin, Total 0.3 mg/dL (0.2-1.2); Calc. Creatinine Clearance 0 mL/min (70-130); Calcium 9.6 mg/dL (7.8-10.44); Carbon Dioxide 23 mmol/L (22-29); Chloride 104 mmol/L (98-107); Estimated GFR 103; Glucose 122 mg/dL (70-105); Lipase 30 U/L (8-78); Magnesium 2.9 mg/dL (1.6-2.6); Potassium 3.6 mmol/L (3.5-5.1); Protein, Total 8.1 g/dL (6.0-8.3); Sodium 139 mmol/L (136-145)
[2024-06-21] MEDS ORDERED: Diazepam 10 MG/2 ML SYRINGE ONE (05:22)
[2024-06-21] MEDS ORDERED: Amlodipine 5 MG TAB ONE (06:37)
[2024-06-21] MEDS ORDERED: Piperacillin/Tazobactam 4.5 GM VIAL ONE (08:11)
[2024-06-21 08:17] LABS: Lactic Acid 1.8 mmol/L (0.5-2.2)
[2024-06-21] MEDS ORDERED: Acetaminophen 325 MG TAB ONE ×2 (09:14→15:50)
[2024-06-21 09:35] LABS: Lactic Acid 3.7 mmol/L (0.5-2.2)
[2024-06-21] MEDS ORDERED: Iopamidol 300 61% 100 ML VIAL FS ONE (10:51)
[2024-06-21] MEDS ORDERED: traMADol HCl 50 MG TAB ONE (13:27)
[2024-06-21] MEDS ORDERED: Promethazine 25 MG TAB ONE (13:27)
[2024-06-21] MEDS: Sodium Chloride 0.9% 1,000 ML IV SCH (13:30)
[2024-06-21] MEDS: Promethazine 25 MG TAB PO PRN (13:30)
[2024-06-21] MEDS: traMADol HCl 50 MG TAB PO PRN (13:39)
[2024-06-21] MEDS: Mesalamine DR 400 mg Capsule PO SCH (15:27)
[2024-06-21 15:54] LABS: Lactic Acid 3.3 mmol/L (0.5-2.2)
[2024-06-21] MEDS: Acetaminophen 325 MG TAB PO PRN (15:55)
[2024-06-21] MEDS ORDERED: HYDROcodone/Acetaminophen 5/325 mg Tablet ONE (17:23)
[2024-06-21] MEDS: HYDROcodone/Acetaminophen 5/325 mg Tablet PO SCH (17:32)
[2024-06-21] MEDS: Famotidine 20 MG TAB PO SCH (19:51)
[2024-06-21] MEDS: Morphine 2 MG/ML VIAL SLOW IVP SCH (21:22)
[2024-06-21] MEDS: metroNIDAZOLE 500 MG TAB PO SCH (21:22)
[2024-06-21] MEDS: Dicyclomine 10 MG CAP PO SCH (21:22)
[2024-06-21] MEDS: cefTRIAXone\\ROCEPHIN 1 GM in Sodium Chloride 0.9% 100 ML IVPB SCH (21:23)
[2024-06-21 21:58] VITALS: BMI 22.8
[2024-06-21] MEDS: predniSONE 10 MG TAB PO SCH (23:29)
[2024-06-22 05:36] LABS: Lactic Acid 1.9 mmol/L (0.5-2.2)
[2024-06-22 05:38] LABS: #Basophils 0.01 10x3/uL (0.0-0.2); #Monocytes 0.76 10x3/uL (0.0-1.1); #Neutrophils 5.69 10x3/uL (1.5-8.4); %Basophils 0.1 % (0.0-2.0); %Lymphocytes 26.7 % (18.0-47.0); %Monocytes 8.5 % (0.0-10.0); %Neutrophils 63.8 % (40.0-75.0); Hematocrit 30.4 % (34.9-44.5); Hemoglobin 9.8 g/dL (12.0-15.5); Mean Corpuscular HGB CONC 32.2 g/dL (32.0-36.0); Mean Corpuscular Hemoglobin 22.6 pg (27.0-33.0); Platelet Count 273 10x3/uL (150-450); RBC Distribution Width 14.8 % (11.5-14.5); Red Blood Cell (RBC) Count 4.34 10x6/uL (3.90-5.03); White Blood Cell (WBC) Count 8.9 10x3/uL (3.5-10.5)
[2024-06-22 05:43] LABS: Anion Gap 13 mmol/L (10-20); BUN (Urea Nitrogen) 7 mg/dL (7.0-18.7); Calc. Creatinine Clearance 96 mL/min (70-130); Calcium 8.4 mg/dL (7.8-10.44); Carbon Dioxide 24 mmol/L (22-29); Chloride 107 mmol/L (98-107); Estimated GFR 115; Glucose 87 mg/dL (70-105); Potassium 3.1 mmol/L (3.5-5.1); Sodium 141 mmol/L (136-145)
[2024-06-22] MEDS ORDERED: Electrolyte Replacement Protocol 1 EACH FS PRN (07:36)
[2024-06-22] MEDS: Potassium Chloride 20 MEQ in Premix 1 BAG IVPB SCH (09:34)
[2024-06-22] MEDS: Amlodipine 5 MG TAB PO SCH (12:24)
[2024-06-22] MEDS: Sodium Chloride 0.9% 1,000 ML IV SCH (13:18)
[2024-06-22] MEDS: methylPREDNISolone Sod Succ 40 MG VIAL IVP SCH (15:18)
[2024-06-22 20:16] VITALS: BP 125/83; TEMP 97.9
[2024-06-22] MEDS: metroNIDAZOLE 500 MG TAB PO SCH (20:33)
[2024-06-22] MEDS: cefTRIAXone\\ROCEPHIN 1 GM in Sodium Chloride 0.9% 100 ML IVPB SCH (20:33)
[2024-06-22 23:21] LABS: Campy jejuni + coli by PCR Negative (Negative); STEC Shiga Toxin 1+2 Negative (Negative); Salmonella spp. by PCR Negative (Negative); Shigella spp + EIEC by PCR Negative (Negative)
[2024-06-23] MEDS ORDERED: Cephalexin 500 MG CAP PO SCH (09:00)
== END 2024-06-23 00:25 | disposition left against medical advice (07) ==
LOC: CSHERS 03:07 → CSHERHOLD 08:28 → CSHTELE 19:16
PROVIDERS: ADMIT Internal Medicine; ATTEND Internal Medicine
DX: K51.90 Ulcerative colitis, unspecified, without complications (principal); R19.7 Diarrhea, unspecified; K92.1 Melena; I10 Essential (primary) hypertension; E87.20 Acidosis, unspecified; D64.9 Anemia, unspecified; N83.202 Unspecified ovarian cyst, left side; F11.20 Opioid dependence, uncomplicated; Z87.59 Personal history of other complications of pregnancy, childbirth and the puerperium; Z98.890 Other specified postprocedural states; Z88.8 Allergy status to other drugs, medicaments and biological substances; Z88.6 Allergy status to analgesic agent; Z88.5 Allergy status to narcotic agent; Z88.2 Allergy status to sulfonamides; Z88.0 Allergy status to penicillin; Z79.899 Other long term (current) drug therapy; R51.9 Headache, unspecified; R29.700 NIHSS score 0; J18.9 Pneumonia, unspecified organism; I30.9 Acute pericarditis, unspecified; Z55.6 Problems related to health literacy
CPT/HCPCS: 36415; 36416; 70450; 74177; 80048; 80053; 81001; 82274; 83605; 83690; 83735; 84703; 85025; 86140; 87086; 87505; 96365; 96367; 96372; 96375; 96376; 99283; G0378; J0696; J0780; J1100; J2272; J2543; J2550; J2919; J3030; J3360; J3475; J3480; J7030; J7512; Q0169; Q9967

== ENCOUNTER 2024-09-03 09:40 | Emergency (ER) | payer OTHER ==
[2024-09-03 10:28] LABS: Bilirubin Neg (Negative); Blood, Urine 10 (Negative); Clarity Cloudy (Clear); Glucose, Urine (Dipstick) Normal (Negative); Ketone, Urine Negative (Negative); Leukocyte 500 (Negative); Nitrite Positive (Negative); Protein, Urine (Dipstick) 30 mg/dl (Neg-Trace); Urobilinogen Normal mg/dL (Less than 2); pH, Urine 6.5 (5.0-9.0)
[2024-09-03 10:34] LABS: Pregnancy Test - Urine (BHCG) Negative (Negative); Pregu Control Background? CLEAR/WHITE (CLR/WHITE); Pregu Control Bar Appear? YES (CONTROL BAR)
[2024-09-03 10:36] LABS: #Basophils 0.01 10x3/uL (0.0-0.2); #Eosinophils 0.06 10x3/uL (0.0-0.5); #Monocytes 0.38 10x3/uL (0.0-1.1); %Basophils 0.2 % (0.0-2.0); %Eosinophils 1.3 % (0.0-6.0); %Lymphocytes 36.7 % (18.0-47.0); %Monocytes 8.4 % (0.0-10.0); %Neutrophils 53.2 % (40.0-75.0); Hematocrit 33.2 % (34.9-44.5); Hemoglobin 10.1 g/dL (12.0-15.5); Mean Corpuscular HGB CONC 30.4 g/dL (32.0-36.0); Mean Corpuscular Hemoglobin 21.9 pg (27.0-33.0); Mean Corpuscular Volume 71.9 fL (81.6-98.3); Platelet Count 372 10x3/uL (150-450); Red Blood Cell (RBC) Count 4.62 10x6/uL (3.90-5.03); White Blood Cell (WBC) Count 4.5 10x3/uL (3.5-10.5)
[2024-09-03 10:50] LABS: ALT (SGPT) 10 U/L (8-55); AST (SGOT) 22 U/L (5-34); Albumin 3.8 g/dL (3.5-5.0); Alkaline Phosphatase 57 U/L (40-110); Anion Gap 12 mmol/L (10-20); BUN (Urea Nitrogen) 10 mg/dL (7.0-18.7); Bilirubin, Total 0.3 mg/dL (0.2-1.2); Calc. Creatinine Clearance 0 mL/min (70-130); Calcium 9.5 mg/dL (7.8-10.44); Carbon Dioxide 24 mmol/L (22-29); Chloride 105 mmol/L (98-107); Estimated GFR 100; Globulin 3.8 g/dL (2.4-3.5); Glucose 91 mg/dL (70-105); Potassium 3.3 mmol/L (3.5-5.1); Protein, Total 7.6 g/dL (6.0-8.3); Sodium 138 mmol/L (136-145)
[2024-09-03 11:10] LABS: Bacteria/HPF 4+ HPF (None Seen); CAUTI Indications for Culture Dysuria,urgency,freq; RBC/HPF 0-3 HPF (0-3); WBC/HPF 21-50 HPF (0-3)
[2024-09-03 11:11] LABS: Urine Culture Reflex Yes Yes
[2024-09-03] MEDS ORDERED: Promethazine HCl 25 MG in Sodium Chloride 0.9% 50 ML IVPB SCH (11:45)
[2024-09-03 11:56] LABS: Microcytosis SLIGHT = 6-15 cells (100X) (0-5/hpf)
[2024-09-03 11:57] LABS: Platelet Adequacy Comment Platelets Normal
[2024-09-03] MEDS ORDERED: Morphine 4 MG/ML VIAL ONE ×2 (13:32→14:29)
[2024-09-03] MEDS ORDERED: cefTRIAXone (ROCEPHIN) 1 GM VIAL ONE (13:32)
== END 2024-09-03 15:25 | disposition home or self-care (01) ==
LOC: CSHERS 09:40
DX: N30.80 Other cystitis without hematuria (principal); I10 Essential (primary) hypertension
CPT/HCPCS: 36415; 80053; 81001; 81025; 83605; 83690; 84145; 85025; 86140; 87040; 87077; 87086; 87186; 96361; 96365; 96367; 96375; 96376; J0696; J2272; J2550

== ENCOUNTER 2024-09-05 01:00 | Emergency (ER) | payer OTHER ==
[2024-09-05 02:44] LABS: Bilirubin Neg (Negative); Blood, Urine Negative (Negative); Clarity Clear (Clear); Glucose, Urine (Dipstick) Normal (Negative); Ketone, Urine Negative (Negative); Leukocyte Negative (Negative); Nitrite Negative (Negative); Protein, Urine (Dipstick) Negative (Neg-Trace); Specific Gravity, Urine 1.015 (1.005-1.030); Urobilinogen Normal mg/dL (Less than 2)
[2024-09-05 02:57] LABS: Bacteria/HPF 1+ HPF (None Seen); CAUTI Indications for Culture Dysuria,urgency,freq; RBC/HPF 0-3 HPF (0-3); Squamous Epithelial 0-3 HPF (0-3); WBC/HPF 0-3 HPF (0-3)
[2024-09-05 02:58] LABS: Urine Culture Reflex No No
[2024-09-05 03:02] LABS: #Basophils 0.01 10x3/uL (0.0-0.2); #Monocytes 0.39 10x3/uL (0.0-1.1); #Neutrophils 1.63 10x3/uL (1.5-8.4); %Basophils 0.2 % (0.0-2.0); %Eosinophils 2.5 % (0.0-6.0); %Lymphocytes 47.3 % (18.0-47.0); %Monocytes 9.6 % (0.0-10.0); %Neutrophils 40.2 % (40.0-75.0); Hematocrit 30.7 % (34.9-44.5); Hemoglobin 9.5 g/dL (12.0-15.5); Mean Corpuscular HGB CONC 30.9 g/dL (32.0-36.0); Mean Corpuscular Hemoglobin 22.2 pg (27.0-33.0); Mean Corpuscular Volume 71.7 fL (81.6-98.3); Mean Platelet Volume 8.7 fL (7.4-10.4); Platelet Count 327 10x3/uL (150-450); RBC Distribution Width 15.8 % (11.5-14.5); Red Blood Cell (RBC) Count 4.28 10x6/uL (3.90-5.03); White Blood Cell (WBC) Count 4.1 10x3/uL (3.5-10.5)
[2024-09-05 03:16] LABS: BHCG - Serum Negative (NEGATIVE); Pregs Control Background? CLEAR/WHITE (CLR/WHITE); Pregs Control Bar Appear? YES (CONTROL BAR)
[2024-09-05 03:27] LABS: ALT (SGPT) 11 U/L (8-55); AST (SGOT) 19 U/L (5-34); Albumin 3.6 g/dL (3.5-5.0); Alkaline Phosphatase 56 U/L (40-110); Anion Gap 14 mmol/L (10-20); BUN (Urea Nitrogen) 6 mg/dL (7.0-18.7); Bilirubin, Total 0.3 mg/dL (0.2-1.2); Calc. Creatinine Clearance 0 mL/min (70-130); Calcium 9.1 mg/dL (7.8-10.44); Carbon Dioxide 19 mmol/L (22-29); Chloride 108 mmol/L (98-107); Estimated GFR 113; Globulin 3.4 g/dL (2.4-3.5); Glucose 87 mg/dL (70-105); Lipase 53 U/L (8-78); Magnesium 1.6 mg/dL (1.6-2.6); Sodium 138 mmol/L (136-145)
[2024-09-05] MEDS ORDERED: fentaNYL 50 mcg/mL 1 mL Vial ONE ×2 (04:14→06:09)
[2024-09-05] MEDS ORDERED: Promethazine HCl 25 MG in Sodium Chloride 0.9% 50 ML IVPB ONE (04:30)
[2024-09-05] MEDS ORDERED: Potassium Chloride 20 MEQ TAB ONE (06:33)
[2024-09-05] MEDS ORDERED: LevoFLOXacin 750 MG TAB ONE (06:43)
[2024-09-05] MEDS ORDERED: Iopamidol 370 76% 100 ML VIAL ONE (09:51)
== END 2024-09-05 09:56 | disposition home or self-care (01) ==
LOC: CSHERS 01:00
DX: N32.89 Other specified disorders of bladder (principal); R10.30 Lower abdominal pain, unspecified; I10 Essential (primary) hypertension; Z79.899 Other long term (current) drug therapy
CPT/HCPCS: 36415; 74177; 80053; 81001; 83605; 83690; 83735; 84703; 85025; 96374; 96375; 96376; J2550; J3010; Q9967

== ENCOUNTER 2024-10-01 18:49 | Emergency (ER) | payer OTHER ==
[2024-10-01 19:45] LABS: #Basophils 0.02 10x3/uL (0.0-0.2); #Eosinophils 0.06 10x3/uL (0.0-0.5); #Monocytes 0.47 10x3/uL (0.0-1.1); #Neutrophils 6.53 10x3/uL (1.5-8.4); %Basophils 0.2 % (0.0-2.0); %Eosinophils 0.7 % (0.0-6.0); %Lymphocytes 16.4 % (18.0-47.0); %Monocytes 5.5 % (0.0-10.0); %Neutrophils 76.8 % (40.0-75.0); Hematocrit 31.3 % (34.9-44.5); Hemoglobin 9.9 g/dL (12.0-15.5); Mean Corpuscular HGB CONC 31.6 g/dL (32.0-36.0); Mean Corpuscular Volume 69.4 fL (81.6-98.3); Mean Platelet Volume 9.4 fL (7.4-10.4); Platelet Count 392 10x3/uL (150-450); RBC Distribution Width 16.5 % (11.5-14.5); Red Blood Cell (RBC) Count 4.51 10x6/uL (3.90-5.03); White Blood Cell (WBC) Count 8.5 10x3/uL (3.5-10.5)
== END 2024-10-01 21:18 | disposition left against medical advice (07) ==
LOC: CSHERS 18:49
DX: O20.9 Hemorrhage in early pregnancy, unspecified (principal); Z3A.08 8 weeks gestation of pregnancy
CPT/HCPCS: 36415; 84702; 85025; 86900; 86901

== ENCOUNTER 2025-07-24 16:10 | Emergency (ER) | payer MEDICAID, OTHER ==
[2025-07-24] MEDS ORDERED: Famotidine 20 MG TAB ONE (17:20)
[2025-07-24] MEDS ORDERED: Dicyclomine 20 MG TAB ONE (17:20)
[2025-07-24 17:58] LABS: #Basophils Less than 0.03 10x3/uL (0.0-0.2); #Eosinophils Less than 0.03 10x3/uL (0.0-0.5); #Monocytes 0.33 10x3/uL (0.0-1.1); #Neutrophils 2.99 10x3/uL (1.5-8.4); %Basophils 0.4 % (0.0-2.0); %Eosinophils 0.4 % (0.0-6.0); %Lymphocytes 34.5 % (18.0-47.0); %Monocytes 6.4 % (0.0-10.0); %Neutrophils 57.9 % (40.0-75.0); Hematocrit 30.7 % (34.9-44.5); Hemoglobin 9.5 g/dL (12.0-15.5); Mean Corpuscular Hemoglobin 22.3 pg (27.0-33.0); Mean Corpuscular Volume 72.1 fL (81.6-98.3); Platelet Count 312 10x3/uL (150-450); Red Blood Cell (RBC) Count 4.26 10x6/uL (3.90-5.03); White Blood Cell (WBC) Count 5.16 10x3/uL (3.5-10.5)
[2025-07-24 18:00] LABS: Glucose, Urine (Dipstick) Normal (Negative); Leukocyte 500 (Negative); Protein, Urine (Dipstick) 15 mg/dl (Neg-Trace); Specific Gravity, Urine 1.010 (1.005-1.030)
[2025-07-24 18:00] LABS: BHCG - Serum Negative (NEGATIVE); Pregs Control Background? CLEAR/WHITE (CLR/WHITE); Pregs Control Bar Appear? YES (CONTROL BAR)
[2025-07-24 18:05] LABS: ALT (SGPT) 13 U/L (Less than 34); AST (SGOT) 18 U/L (11-34); Albumin 4.0 g/dL (3.1-4.5); Alkaline Phosphatase 55 U/L (40-110); Anion Gap 13 mmol/L (10-20); BUN (Urea Nitrogen) 15 mg/dL (7.0-18.7); Bilirubin, Total 0.3 mg/dL (0.3-1.2); Calc. Creatinine Clearance 0 mL/min (70-130); Calcium 9.2 mg/dL (7.8-10.44); Carbon Dioxide 23 mmol/L (22-29); Chloride 108 mmol/L (98-107); Globulin 3.4 g/dL (2.4-3.5); Glucose 85 mg/dL (70-105); Lipase 43 U/L (8-78); Potassium 3.7 mmol/L (3.5-5.1); Sodium 140 mmol/L (136-145)
[2025-07-24 18:13] LABS: Bacteria/HPF 4+ HPF (None Seen); CAUTI Indications for Culture Pelvic or flank pain; RBC/HPF 0-3 HPF (0-3)
[2025-07-24 18:14] LABS: Urine Culture Reflex Yes Yes
[2025-07-24 18:53] LABS: Troponin I Less than 0.010 ng/mL (< 0.028)
== END 2025-07-24 19:13 | disposition home or self-care (01) ==
LOC: CSHERS 16:10
DX: N39.0 Urinary tract infection, site not specified (principal); R10.9 Unspecified abdominal pain; G89.29 Other chronic pain; R07.9 Chest pain, unspecified; I10 Essential (primary) hypertension; Z55.6 Problems related to health literacy
CPT/HCPCS: 71045; 80053; 81001; 83690; 84484; 84703; 85025; 86140; 87077; 87086

== ENCOUNTER 2025-07-30 12:33 | Emergency (ER) | payer OTHER ==
[~2025-07-30 12:33] MED LIST: Iopamidol 300 61% 100 ML VIAL FS ONE
[2025-07-30 13:21] LABS: Pregnancy Test - Urine (BHCG) Negative (Negative); Pregu Control Background? CLEAR/WHITE (CLR/WHITE); Pregu Control Bar Appear? YES (CONTROL BAR)
[2025-07-30 13:28] LABS: Glucose, Urine (Dipstick) Normal (Negative); Leukocyte 100 (Negative); Protein, Urine (Dipstick) 30 mg/dl (Neg-Trace); Specific Gravity, Urine 1.015 (1.005-1.030)
[2025-07-30 13:46] LABS: CAUTI Indications for Culture Pelvic or flank pain
[2025-07-30 13:47] LABS: Bacteria/HPF 3+ HPF (None Seen); RBC/HPF 0-3 HPF (0-3)
[2025-07-30 13:49] LABS: Urine Culture Reflex Yes Yes
[2025-07-30] MEDS ORDERED: Pantoprazole 40 MG VIAL ONE (13:50)
[2025-07-30 14:15] LABS: ALT (SGPT) 15 U/L (Less than 34); AST (SGOT) 29 U/L (11-34); Albumin 4.3 g/dL (3.1-4.5); Alkaline Phosphatase 61 U/L (40-110); Anion Gap 14 mmol/L (10-20); BUN (Urea Nitrogen) 14 mg/dL (7.0-18.7); Bilirubin, Total 0.2 mg/dL (0.3-1.2); Calc. Creatinine Clearance 0 mL/min (70-130); Calcium 9.3 mg/dL (7.8-10.44); Carbon Dioxide 19 mmol/L (22-29); Chloride 108 mmol/L (98-107); Globulin 3.9 g/dL (2.4-3.5); Glucose 84 mg/dL (70-105); Lipase 36 U/L (8-78); Potassium 3.5 mmol/L (3.5-5.1); Sodium 137 mmol/L (136-145)
[2025-07-30 14:36] LABS: #Basophils Less than 0.03 10x3/uL (0.0-0.2); #Eosinophils 0.04 10x3/uL (0.0-0.5); #Monocytes 0.34 10x3/uL (0.0-1.1); #Neutrophils 2.71 10x3/uL (1.5-8.4); %Basophils 0.2 % (0.0-2.0); %Eosinophils 0.8 % (0.0-6.0); %Lymphocytes 37.2 % (18.0-47.0); %Monocytes 6.9 % (0.0-10.0); %Neutrophils 54.7 % (40.0-75.0); Hematocrit 36.3 % (34.9-44.5); Hemoglobin 11.3 g/dL (12.0-15.5); Mean Corpuscular Hemoglobin 22.0 pg (27.0-33.0); Mean Corpuscular Volume 70.6 fL (81.6-98.3); Platelet Count 281 10x3/uL (150-450); Red Blood Cell (RBC) Count 5.14 10x6/uL (3.90-5.03); White Blood Cell (WBC) Count 4.95 10x3/uL (3.5-10.5)
[2025-07-30] MEDS ORDERED: Fosfomycin 3 GM/Packet PO SCH (16:45)
== END 2025-07-30 16:45 | disposition home or self-care (01) ==
LOC: CSHERS 12:33
DX: N39.0 Urinary tract infection, site not specified (principal); I10 Essential (primary) hypertension
CPT/HCPCS: 36415; 74177; 80053; 81001; 81025; 83690; 85025; 87077; 87086; 87186; 96374; 96375; J2470; J2550; Q9967